=== PATIENT | female | born 1940 | race Caucasian/White ===

== ENCOUNTER 2025-02-03 18:36 | Inpatient (IN) ==
--- NOTE | 2025-02-03 18:49 | Emergency Department Note ---
Impression & Plan Hospice care ED Provider Note HISTORY OF PRESENT ILLNESS: Patient is an 84-year-old female presenting for a mental health evaluation. Patient presents with [facility] [employer]. Patient reports that she called her home health nurse to inquire about whether the nurse was going to stop by tomorrow to see her. Patient reports that she was doing this because tonight she had plan to take all of her medications to "end my life peacefully and go to sleep." She reports she is currently on hospice for stage IV uterine and breast cancers. She reports that "I did not want it to get to that bad point and wanted to go while I am still me." She reports that the home health nurse had asked a few more questions about why she was calling, and patient reports that she accidentally told them of her plan. The home health nurse called police. Patient denies any suicidal ideation. Denies any homicidal ideation. Patient denies any previous suicide attempts. She reports that "I just do not want to keep going on like this." Patient reports her son lives in [place]. She lives at home alone, but states "I have friends who check up on me." Patient reports that after she had disclosed her plan to her home health nurse, they had presented to her home and took all of her medications. ROS: as above PHYSICAL EXAM: Constitutional: Patient appears in no acute distress. HENT: Head: Normocephalic and atraumatic. Eyes: EOMI, PERRL Mouth/Throat: Mucous membranes moist. Neck: Trachea midline. Neck supple. Cardiovascular: RRR, No murmurs, rubs or gallops. Intact distal pulses. Pulmonary/Chest: No respiratory distress. Breath sounds clear and equal bilaterally. No wheezes or rales. Abdominal: Abdomen soft, no tenderness, rebound or guarding. Musculoskeletal: No edema, tenderness or deformity noted. Skin: Warm and dry. No rash, erythema, pallor or cyanosis Psychiatric: Appropriate mood and affect for situation. Neurological: Alert and keenly responsive. CN II-XII grossly intact, moving all extremities equally and fully. MDM: - Vitals signs showed tachycardia - History obtained via patient. History as above. - Chronic conditions affecting care: DM-2; hx of PE; HTN; HLD; uterine cancer - External medical records reviewed. - A 302 petition was signed by the home hospice nurse. However, I did overturn this, as I do not feel the patient requires inpatient psychiatric admission. She has an unfortunate medical diagnosis and has no previous psychiatric history. Case management did touch base with the home hospice nurse, Jaky, who stated that the medications were removed from the patient's home. In further discussions between case management and hospice, they report that they do not feel comfortable being a part of the patient's care unless she is placed in a SNF or an assisted living facility. They report that they do not feel comfortable giving the patient back any of her home meds given her expressed plans today. As such, the patient will need medical admission for her medication management and for discussions of placement. IV and lab work was obtained. - Discussion was had with watch case polisher about patient's case and need for admission - Hospitalist, Dr. Cisse, consulted for admission - Patient admitted to [facility] hospitalist service for further evaluation and management. ASSESSMENT AND PLAN: Diagnosis: hospice care Plan: Admit Past Med/Surg History Problem List (Updated 02/03/25 @ 21:54 by Sherry Mercado MD) Hospice care (Acute) Encounter for pre-operative examination Head injury without skull fracture (Acute) Alcohol intoxication (Acute) Diabetes (Chronic) Avulsion of skin of finger (Acute) Medical History (Updated 02/03/25 @ 21:54 by Sherry Mercado MD) Arthritis Diabetes mellitus, type 2 Hx pulmonary embolism WAS ON BLOOD THINNERS FOR A LITTLE BIT Hypertension Hyperlipidemia Surgical History Hx of colonoscopy Hx of foot surgery RIGHT AND LEFT BUNIONECTOMY Status post vascular surgery STENT PLACED IN RIGHT SIDE FOR BLOCK IN FEMORAL ARTERY Hx of superior vena cava filter placement DUE TO BLOOD CLOT Social History Smoking Status: Former smoker Second Hand Exposure: No; Do You Dip or Chew Tobacco: No; Hx Alcohol Use: No Hx Substance Use: No Preferred Language: Romanian Communication Ability: Effective Heel Splitter Required: No Beliefs That Will Affect Care: None Current Living Situation: Alone Feels Safe at Home: Yes Assistive Devices: Denture - Upper, Denture - Lower and Glasses Allergies Allergies Allergy/AdvReac Type Severity Reaction Status Date / Time No Known Allergies Allergy Verified 11/15/19 09:39 Home Meds Home Medications Medication Instructions Recorded Confirmed alprazolam 1 mg tablet 1 mg PO HS PRN Anxiety 02/03/25 02/03/25 fentanyl 25 mcg/hr transdermal 1 patch transdermal Q72H 02/03/25 02/03/25 patch Results & Data (ED) Vital Signs Vital Signs - 24 hr 02/03/25 18:39 02/03/25 21:30 02/03/25 21:30 Temperature 36.9 C Temperature Source Oral Pulse Rate 94 H Pulse Rate [Finger] 82 Pulse Rhythm [Finger] Regular Pulse Strength [Finger] Normal Respiratory Rate 18 20 Respiratory Effort / Characteristics Non-Labored Spontaneous Non-Labored Spontaneous Respiratory Depth Normal Normal Respiratory Pattern Regular Regular Blood Pressure 117/97 Blood Pressure [Right Arm] 110/69 Blood Pressure Mean 103 Blood Pressure Mean [Right Arm] 82 Blood Pressure Position [Right Arm] Lying Pulse Oximetry 95 98 97 Oxygen Delivery Method Room Air Room Air Room Air Sepsis Recent Fever Within 48 Hours No Sepsis New/Unexplained Change in Mental Status N/A Sepsis Action Taken by Nursing No Action Required Discharge Plan Visit Data Chief Complaint: Mental Health Evaluation ED Provider: Sherry Mercado Discharge Problem: Hospice care Forms Stand Alone Forms: [facility], Suicide Prevention Resources Prescriptions Prescriptions: No Action alprazolam 1 mg tablet 1 mg PO HS PRN (Reason: Anxiety) fentanyl 25 mcg/hr Patch 72 Hour 1 patch TRANSDERMAL Q72H Referrals Referrals: Ila Fung DO [Outside Practitioners] -
[2025-02-03 22:05] LABS: Basophils # (auto) 0.03 K/uL (0.00-0.20); Basophils % (auto) 0.4 %; Eosinophils # (auto) 0.05 K/uL (0.00-0.50); Eosinophils % (auto) 0.7 %; Hematocrit (blood only) 35.1 % (37.0-47.0); Hemoglobin 10.7 g/dl (12.0-16.0); Immature Granulocytes # (auto) 0.02 K/uL (0.01-0.20); Immature Granulocytes % (auto) 0.3 %; Lymphocytes # (auto) 2.07 K/uL (1.20-3.40); Lymphocytes % (auto) 27.3 %; Mean Corpuscular Hemoglobin 23.6 pg (25.0-34.0); Mean Corpuscular Hgb Conc 30.5 g/dL (32.0-36.0); Mean Corpuscular Volume 77.5 fL (80.0-100.0); Mean Platelet Volume 9.7 fL (9.4-12.4); Monocytes # (auto) 0.76 K/uL (0.11-0.59); Neutrophils # (auto) 4.65 K/uL (1.40-6.50); Neutrophils % (auto) 61.3 %; Platelet Count 221 K/uL (130-400); RDW Coefficient of Variation 13.9 % (11.5-14.5); RDW Standard Deviation 39.1 fL (36.4-46.3); Red Blood Count 4.53 M/uL (4.20-5.40); White Blood Count 7.58 K/ul (4.8-10.8)
[2025-02-03 22:19] LABS: Albumin Globulin Ratio 0.9 (0.9-2); Albumin Level 3.7 gm/dl (3.4-5.0); BUN Creatinine Ratio 16.8 (10-20); Bilirubin,Total 0.6 mg/dl (0.2-1.0); Calcium 9.4 mg/dl (8.6-10.3); Creatinine Clr Calc Pharmacy 33.3 ml/min; Globulin 3.9 gm/dl (2.5-4.0); Potassium 3.7 mmol/L (3.5-5.1); Total Protein 7.6 gm/dl (6.0-8.3)
[2025-02-03 22:33] LABS: Thyroid Stimulating Hormone 2.909 uIu/ml (0.300-4.500)
[2025-02-04] MEDS ORDERED: POLYETHYLENE (MIRALAX) 17 GM PACK PO PRN (00:57)
[2025-02-04] MEDS: ENOXAPARIN INJ 40 MG/0.4 ML SYR SQ SCH (01:52)
--- OUTSIDE RECORDS SUMMARY | 2025-02-04 02:41 | External Medical Summary | Summary of Care ---
Author Name Unknown Organization [facility] Address [address] [place] [address] Phone [phone] Care Team Providers Care Certified Ophthalmic Technician Name Role Phone Ila Fung DO Primary Care Provider [phone] Reason for Visit * Reason Onset Date Comments Appointment 11/01/2024 Encounter Details Date Type Department Care Team (Late st Contact Info) Description 11/01/2024 Telephone Gynecology/Oncology, [facility] [address] [place] [address] Mauricio Ramirez PA-C [address] [place] [address] Appointment Allergies No known active allergiesdocumented as of this encounter (statuses as of 11/01/2024) Medications ASPIRIN 81 MG PO TABS Take by mouth. Activ e Ondansetron HCl 4 MG Oral Tablet Take 1 Tablet by mouth every 8 hours as needed for Nausea. 20 Tablet 07/21/2024 4:05 PM EDT Active Additional Information Patient not taking.Reported on 09/08/2024 Senna 8.6 MG Oral Tablet Take 1 Tablet by mouth daily as needed for Constipation for up to 1 dose. 14 Tablet 07/21/2024 4:05 PM EDT Active Additional Information Patient not taking.Reported on 09/08/2024 Simethicone 80 MG Oral Tablet Chewable (Mylicon) Chew & swallow 1 Tablet by mouth as needed for Gas. 30 Tablet 07/21/2024 4:05 PM EDT 4 Active Additional Information Patient not taking.Reported on 09/08/2024 Ondansetron HCl 8 MG Oral Tablet (Zofran)Indicat ions:Endometria l cancer (HCC) Take 1 Tablet by mouth every 8 hours as needed for Nausea. 30 Tablet 2 4 Active Additional Information Patient not taking.Reported on 09/08/2024 Prochlorperazin e Maleate 10 MG Oral Tablet (Compazine)Irena cations:Endomet rial cancer (HCC) Take 1 Tablet by mouth every 6 hours as needed for Nausea. 30 Tablet 3 4 Active Additional Information Patient not taking.Reported on 09/08/2024 dexAMETHasone 4 MG Oral Tablet (Decadron)Indic ations:Endometr ial cancer (HCC) Take 20mg (5 tablets) the night before and morning of chemotherapy 60 Tablet 4 Active Additional Information Patient not taking.Reported on 09/08/2024 Loratadine 10 MG Oral Tablet (Claritin)Indic ations:Endometr ial cancer (HCC) Take 1 tablet by mouth daily x5 days starting the day of chemotherapy 30 Tablet 4 Active Additional Information Patient not taking.Reported on 09/08/2024 Lidocaine-Prilo todd 2.5-2.5 % External Cream (Emla)Indicatio ns:Endometrial cancer (HCC) APPLY TO SKIN OVER MEDIPORT & COVER 1HR PRIOR TO ACCESSING. 30 g 1 4 Active Additional Information Patient not taking.Reported on 09/08/2024 ALPRAZolam 0.5 MG Oral Tablet (xaNAX)Indicati ons:Insomnia TAKE 1 TABLET BY MOUTH ONCE DAILY AT BEDTIME NEEDED FOR ANXIETY 15 Tablet 4 Active oxyCODONE HCl 5 MG Oral Tablet (Oxy IR)Indications: Cancer related pain Take 1 Tablet by mouth every 4 hours as needed for Pain, Severe. 40 Tablet 4 Active Gabapentin 300 MG Oral Capsule (Neurontin)Irena cations:Neuropa thic pain Take 1 Capsule by mouth at bedtime. 60 Capsule 4 Active Polyethylene Glycol 3350 17 GM Oral Packet (Miralax)Indica tions:Constipat ion due to pain medication Take 1 Packet by mouth in the morning. 14 Each Active documented as of this encounter (statuses as of 11/01/2024) Active Problems Problem Noted Date Diagnosed Date Encounter for antineoplastic chemotherapy 2023 Prevention of chemotherapy-induced neutropenia 1 10/27/2023 Endometrial cancer 06/09/2024 Cancer Staging:Clinical stage from 07/21/2024:FIGO Stage IIIC1(cT3b, cN1, cM0) - Signed by Raymundo Ieyr MD on 08/02/2024 Type 2 diabetes mellitus wit h diabetic peripheral angiopathy without gangrene, without long-term current use of insulin 04/08/2023 PVD (peripheral vascular disease) 10/30/2022 Type 2 diabetes mellitus with diabetic cataract 04/03/2022 Anxiety, generalized 04/03/2022 Type 2 diabetes mellitus wit h stage 3a chronic kidney disease, without long-term current use of insulin 09/19/2021 Chronic kidney disease, stage 3a 03/06/2021 Overview: Per CKD protocol Hypertensive kidney disease with stage 3a chronic kidney disease 09/04/2020 Overview: Per CKD protocol 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 06/20/2017 Former smoker 06/20/2017 HTN, goal below 140/90 02/15/2015 Alcohol dependence in remission 06/15/2013 Hyperlipidemia with target LDL less than 100 Overview (02/26/2016): ICD-10 update of inactive term Type 2 diabetes, HbA1C goal < 8% documented as of this encounter (statuses as of 11/01/2024) Resolved Problems Problem Noted Date Diagnosed Date Resolved Date Hypertensive kidney disease with chronic kidney disease stage III 04/14/2019 09/07/2020 Overview: Per CKD protocol Kidney disease, chronic, sta ge III (GFR 30-59 ml/min) 12/07/2018 05/06/2019 Overview: Per CKD protocol #1 Angiopathy, diabetic 10/01/2018 019 Anxiety 11/28/2015 04/08/2023 Other screening mammogram 02/15/2015 Pulmonary embolism 06/15/2013 5 Fracture of rib of left side 06/15/2013 02/15/2015 Tick bite 03/15/2013 02/15/2015 Cellulitis of trunk 03/15/2013 02/16/20 15 Urinary incontinence 09/15/2012 015 Overview (07/28/2017): ICD-10 update of inactive term Localized, primary osteoarth ritis of ankle or foot 12/05/2011 07/31/2012 Overview (12/05/2011): S/p bilateral bunion surgeries 15 years ago Insomnia 12/05/2011 10/15/2018 Overview (07/28/2017): ICD-10 update of inactive term Localized, primary osteoarth ritis of ankle or foot 12/05/2011 07/17/2018 Dyslipidemia 07/31/2012 Overview (12/05/2011): Taking lipitor > 10 years Prediabetes 09/15/2012 Overview (12/05/2011): on metformin HTN, goal below 140/80 02/15 Type 2 diabetes mellitus wit h hemoglobin A1c goal of less than 7.0% 12/05/2011 Overview (02/20/2016): ICD-10 update of inactive term HSV (herpes simplex virus) a nogenital infection 10/15/2018 Overview (12/05/2011): 3-4 outbreaks in last 10 years, used valcyclovir documented as of this encounter (statuses as of 11/01/2024) Immunizations Name Administration Dates Next Due COVID-19 mRNA, LNP-s, No Pre serve, 2-Dose Series (Medgenics) 01/31/2022,07/26/2021,01/13/2021,12/23 Pneumococcal Polysaccharide PPV23 (Pneumovax) 10/08/2022 Season Influenza, Quad, PF, Adjuvanted, 65+ Yrs, IM (FLUAD) 07/19/2022,07/04/2021,08/04/2020 Seasonal Influenza Virus Vac cine, Unspecified Formulation 08/04/2020 TDAP, Age 7 and older, IM (Adacel) 04/26/2013 documented as of this encounter Social History Tobacco Use Types Packs/Day Years Used Date Smoking Tobacco: Former Cigarettes 1 29 0 12/05/1949 - 12/05/1978 Smokeless Tobacco: Never Alcohol Use Standard Drinks/Week Comments No 0 (1 standard drink = 0.6 oz pur e alcohol) PHQ-2 Answer Date Recorded PHQ Adult Total Score 0 10/08/2022 Hunger Vital Sign Answer Date Recorded Within the past 12 months, y ou worried that your food would run out before you got the money to buy more. Never true 04/04/20 21 Within the past 12 months, t he food you bought just didn't last and you didn't have money to get more. Never true 04/04/2021 Utilities Answer Date Recorded Do you have trouble paying y our heating, water, or electric bill? (Adult - for ages 18 years and over) Not on file 04/13/2024 Is your family able to pay t he heat, water, or electric bill? (Household - for ages 0-17 years) Not on file 04/13/2024 Does your family have access to good internet? (Household - for ages 0-17 years) Not on file 04/13/2024 Social Connections Answer Date Recorded How often do you feel lonely or isolated from those around you? 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 Not on file Not on maricruz e documented as of this encounter Miscellaneous Notes * Telephone Encounter - Jaimie Mittal OSA - 11/01/2024 10:27 AM EST Left message asking pt to contact us - need to cancel 11/24/2024 appt provider is going to OR - can offer appt on and 11/26 Canceled appt in [facility] documented in this encounter Plan of Treatment Upcoming Encounters Date Type Department Care Team (Late st Contact Info) Description 12/08/2024 9:30 AM EST Office Visit Palliative Medicine [facility] [address] [place] [phone] Marsha Lowe MD [address] [place] [phone] 12/29/2024 2:00 PM EST Office Visit Hematology/Oncology [address] [place] [phone] Nils [facility] [address] [facility] [address] Scheduled Procedures Name Priority Associated Diagnoses Date/Ti me COLONOSCOPY FLEXIBLE PROXIMA L DIAGNOSTIC Recall Special screening for malignant neoplasms, colon Health Maintenance Due Date Last Done Comments DXA Scan 1940 Zoster Vaccines (1 of 2) 1990 Adult Wellness Visit 2006 DTap/Tdap Vaccines (2 - Td or Tdap) 04/26/2023 04/26/2013 Depression Screening 10/08/2023 10/08/2022 Diabetic Foot Exam 10/08/2023 10/08/2022, 1 12/04/2020, 06/29/2019, Additional history exists Pneumococcal Vaccine: 50+ Years (2 of 2 - PCV) 10/08/2023 10/08/2022 Diabetic Eye Exam 04/07/2024 04/07/2023, , 10/08/2022 (Done elsewhere), Additional history exists COVID-19 Vaccine ( season) 2024 01/31/2022, 07/26/2021, 01/13/2021, Additional history exists Influenza Vaccine (FLU shot) (#1) 2024 07/19/2022, 07/04/2021, 08/04/2020, Additional history exists Albumin/Creatinine Ratio 08/26/2024 023, 10/08/2022, 03/11/2017, Additional history exists HbA1c 09/23/2024 03/23/2024, 03/27, 10/08/2022, Additional history exists GFR 02/28/2025 08/31/2024, 06/27, 06/14/2024, Additional history exists B-12 03/23/2025 03/23/2024, 03/27, 03/27/2022, Additional history exists CKD PHOS USE SMARTSET 05841 03/23/202502/25, 04/07/2023, 03/27/2022, Additional history exists CKD HGB USE SMARTSET 48785 08/31/202508/31, 08/31/2024, 07/15/2024, Additional history exists HPV (Gardasil) Vaccine Aged Out No lo nger eligible based on patient's age to complete this topic Hepatitis B Vaccine Aged Out No longe r eligible based on patient's age to complete this topic MENINGOCOCCAL (MENACTRA/MENVEO) Aged Out No longer eligible based on patient's age to complete this topic documented as of this encounter Medical Devices Implanted Type Area Dental Technician Instructor Device Identifier Shelf Expiration Date Model / Serial / Lot Stent [employer] [id number] - [id number] Implanted:Qty: 1 on 06/24/2017 by Oliverio Singh MD [place] [facility] [place]: Iliac [employer] : VASCULAR 11/22/2017 [id number] / / [id number] Lens Intraoc 17.0 - [id number] - [id number] Implanted:Qty: 1 on 04/13/2021 by Jaret Trotter MD at OR [facility] Left: Eye [employer] 09/25/2025 [id number] / [id number] / [id number] Lens Intraoc 17.0 - [id number] - [id number] Implanted:Qty: 1 on 05/01/2021 by Jaret Trotter MD at OR [facility] Right: Eye [employer]OM[employer] 11/26/2025 [id number] / [id number] / [id number] documented as of this encounter Advance Directives * Full Code (Latest Code Status on File) Date Activated Date Inactivated Comments 07/21/2024 3:05 PM 07/21/2024 11:02 PM This order reflects the patients wishes and were consensually agreed upon. Question Answer Comments Discussion of Advance Direct cruzito occurred with: Not Discussed due to patient's condition * Full Code Date Activated Date Inactivated Comments 06/24/2017 8:33 AM 06/25/2017 2:01 PM This order r eflects the patients wishes and were consensually agreed upon. Question Answer Comments Discussion of Advance Directives occurred with: Patient Does the patient have a Living Will? No Does the patient have Health Care Power of Attor osmani? No Care Teams Certified Ophthalmic Technician Relationship Specialty Start Date End Date Ila Fung DO [address] [facility] [place] [address] PCP - General Family Medicine 10/10/16 documented as of this encounter
--- OUTSIDE RECORDS SUMMARY | 2025-02-04 02:41 | External Medical Summary | Summary of Care ---
Author Name Unknown Organization [facility] Address [address] [place] [facility] [address] Phone [phone] Care Team Providers Care Landscape Drafter Name Role Phone Ila Fung DO Primary Care Provider [phone] Reason for Visit * Reason Comments Follow Up Follow up Encounter Details Date Type Department Care Team (Late st Contact Info) Description 10/13/2024 9:30 AM EST Office Visit Palliative Medicine [facility] [address] [place] [address] Marsha Lowe MD [address] [place] [address] Cancer related pain*; Neuropathic pain; Constipation due to pain medication Allergies No known active allergiesdocumented as of this encounter (statuses as of 10/13/2024) Medications ASPIRIN 81 MG PO TABS Take by mouth. Activ e Ondansetron HCl 4 MG Oral Tablet Take 1 Tablet by mouth every 8 hours as needed for Nausea. 20 Tablet 4 4:05 PM EDT 07/21/20 24 Active Additional Information Patient not taking.Reported on 09/08/2024 Senna 8.6 MG Oral Tablet Take 1 Tablet by mouth daily as needed for Constipation for up to 1 dose. 14 Tablet 4 4:05 PM EDT 07/21/20 24 Active Additional Information Patient not taking.Reported on 09/08/2024 Simethicone 80 MG Oral Tablet Chewable (Mylicon) Chew & swallow 1 Tablet by mouth as needed for Gas. 30 Tablet 4 4:05 PM EDT 07/21/20 Active Additional Information Patient not taking.Reported on 09/08/2024 Ondansetron HCl 8 MG Oral Tablet (Zofran)Indic ations:Endome trial cancer (HCC) Take 1 Tablet by mouth every 8 hours as needed for Nausea. 30 Tablet 2 08/31/20 24 Active Additional Information Patient not taking.Reported on 09/08/2024 Prochlorperaz ine Maleate 10 MG Oral Tablet (Compazine)In dications:End ometrial cancer (HCC) Take 1 Tablet by mouth every 6 hours as needed for Nausea. 30 Tablet 3 08/31/20 Active Additional Information Patient not taking.Reported on 09/08/2024 dexAMETHasone 4 MG Oral Tablet (Decadron)Ind ications:Endo metrial cancer (HCC) Take 20mg (5 tablets) the night before and morning of chemotherapy 60 Tablet 08/31/20 Active Additional Information Patient not taking.Reported on 09/08/2024 Loratadine 10 MG Oral Tablet (Claritin)Ind ications:Endo metrial cancer (HCC) Take 1 tablet by mouth daily x5 days starting the day of chemotherapy 30 Tablet 08/31/20 Active Additional Information Patient not taking.Reported on 09/08/2024 Lidocaine-Linda locaine 2.5-2.5 % External Cream (Emla)Indicat ions:Endometr ial cancer (HCC) APPLY TO SKIN OVER MEDIPORT & COVER 1HR PRIOR TO ACCESSING. 30 g 1 08/31/20 24 Active Additional Information Patient not taking.Reported on 09/08/2024 ALPRAZolam 0.5 MG Oral Tablet (xaNAX)Indica tions:Insomni a TAKE 1 TABLET BY MOUTH ONCE DAILY AT BEDTIME NEEDED FOR ANXIETY 15 Tablet 09/30/20 24 Active oxyCODONE HCl 5 MG Oral Tablet (Oxy IR)Indication s:Cancer related pain Take 1 Tablet by mouth every 4 hours as needed for Pain, Severe. 40 Tablet 10/13/20 24 Active Gabapentin 300 MG Oral Capsule (Neurontin)In dications:Ludy ropathic pain Take 1 Capsule by mouth at bedtime. 60 Capsule 10/13/20 24 Active Polyethylene Glycol 3350 17 GM Oral Packet (Miralax)Irena cations:Const ipation due to pain medication Take 1 Packet by mouth in the morning. 14 Each 10/13/20 24 Active traMADol HCl 50 MG Oral Tablet (Ultram) Take 1 Tablet by mouth every 4 hours as needed for moderate or severe pain 20 Tablet 4 4:05 PM EDT 07/21/20 24 024 Discontinued oxyCODONE HCl 5 MG Oral Tablet (Oxy IR)Indication s:Cancer related pain Take 1 Tablet by mouth every 4 hours as needed for Pain, Severe. 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 06/20/2017 Former smoker 06/20/2017 HTN, goal below 140/90 02/15/2015 Alcohol dependence in remission 06/15/2013 Hyperlipidemia with target LDL less than 100 Overview (02/26/2016): ICD-10 update of inactive term Type 2 diabetes, HbA1C goal < 8% documented as of this encounter (statuses as of 10/13/2024) Resolved Problems Problem Noted Date Diagnosed Date [...] as of this encounter (statuses as of 10/13/2024) Immunizations Name Administration Dates Next Due COVID-19 mRNA, LNP-s, No Pre serve, 2-Dose Series (Pfizer) 01/31/2022,07/26/2021,01/13/2021,12/23 Pneumococcal Polysaccharide PPV23 (Pneumovax) 10/08/2022 Season [...] 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 Not on file Not on maricruz e documented as of this encounter Last Filed Vital Signs Vital Sign Reading Time Taken Comments Blood Pressure 143/83 10/13/2024 9:25 AM EST Pulse 90 10/13/2024 9:25 AM EST Temperature 36.7 °C (98 °F) 10/13/2024 9:25 AM EST Respiratory Rate - - Oxygen Saturation 95% 10/13/2024 9:25 AM EST Inhaled Oxygen Concentration - - Weight 67.9 kg (149 lb 9.6 oz) 10/13/2024 9:25 A M EST Height - - Body Mass Index 24.89 09/08/2024 10:22 AM EST documented in this encounter Progress Notes * Marsha Lowe MD - 10/13/2024 9:30 AM EST Palliative Medicine Outpatient Progress Note [facility] Palliative Medicine Outreach [address] [place] [address] Name: Jyoti Izaguirre Date: 10/13/2024 HPI: Jyoti Izaguirre is a 83 year old female with uterine clear cell carcinoma, s/p surgery, who is clear she does NOT want any sort of treatment seen in follow-up for goals of care and symptom management. At last visit, we completed POLST/OOH DNR and provided a PRN dose of Oxycodone which she was not sure she would use. She has been using it a bit more. Met w/Jyoti today, overall she is doing well. Is having pain in abdomen that is "like a toothache"as well as pain in legs is becoming more severe. Has never been on anything for neuropathic pain. Had bunion surgery in past and feels pain "in her bones" Palliative symptoms: Pain: Bilateral legs and abdomen, using Oxy 5mg Nausea/Vomiting: no Appetite: good, eating what she wants Constipation: no Confusion: no Sleep issues: not sleeping due to pain Dyspnea: no Mood issues: OK Falls: no Other: Examination: BP 143/83 (BP Site: Right Arm, BP Position: Sitting, BP Cuff Size: Regular) | Pulse 90 | Temp 36.7 °C (98 °F) (Tympanic) | Wt 67.9 kg (149 lb 9.6 oz) | SpO2 95% | BMI 24.89 kg/m² | BSA 1.76 m² Constitutional: no acute distress, chronically ill HENT: normocephalic, atraumatic. Eyes: anicteric, sclera and conjunctiva normal. Neck: no stridor Chest: normal respiratory effort Abdominal: nondistended Extremities: no edema Decision-making Capacity: Does Patient have Decisional Capacity? y Does Patient have a Healthcare Agent? Y, son who lives in [place] Advanced Care Planning (see ACP Tab): AD in EMR: y POLST in EMR: y from last visit, DNR LIMITED ASSESSMENT/PLAN: Jyoti Izaguirre is a 83 year old female seen in follow-up for goals of care and pain and symptom management. 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 They are not able to do video visits. Next visit with me. I spent a total of 31 minutes on the date of service in preparation, delivery, and documentation ofthe care provided to Jyoti Izaguirre excluding any time spent in the performance of separately billed services. Marsha Lowe MD [facility] Palliative Medicine [phone] documented in this encounter Nursing Notes * Yoli Bobo, DRIVE SHAFT AND STEERING POST REPAIRER - 10/13/2024 9:26 AM EST Patient identifed by name and birthdate Do you have any concerns about pain management for today's visit? Yes. Patient instructed to discuss pain concerns with provider during the visit today Living Will or Advance Directive for Health Care as noted on the problem list. [facility] is a way you can talk to your provider on line through e-mail. Would you like to sign up? I can activate it for you? ALREADY ACTIVE Filed Vitals: 10/13/24 0925 BP: 143/83 Pulse: 90 Temp: 36.7 °C (98 °F) TempSrc: Tympanic SpO2: 95% Weight: 67.9 kg (149 lb 9.6 oz) Patient was instructed to not get up on the exam table/exam chair until directed and assisted by their provider; patient is to remain seated in the chair/ wheelchair/ exam table/ exam chair for fall prevention and safety reasons. Patient is aware to have assistance to step down off exam table/exam chair with personnel. Patient voiced full comprehension of instructions. documented in this encounter Plan of Treatment Upcoming Encounters Date Type Department Care Team (Late st Contact Info) Description 11/24/2024 1:00 PM EST Office Visit Gynecology/Oncology, [place] [address] [place] [address] Mauricio Ramirez PA-C [address] [place] [address] 12/29/2024 2:00 PM EST Office Visit Hematology/Oncology [facility] [address] [facility] [place] [phone] Nils Reid MD [address] [facility] [place] [address] Scheduled Procedures Name Priority Associated Diagnoses Date/Ti [...] 12/04/2020, 06/29/2019, Additional history exists Pneumococcal Vaccine: 65+ Years (2 of 2 - PCV) 10/08/2023 [...] Additional history exists CKD PHOS USE SMARTSET 43875 03/23/202502/25, 04/07/2023, 03/27/2022, Additional history exists CKD HGB USE SMARTSET 29148 08/31/202508/31, 08/31/2024, 07/15/2024, Additional history exists HPV [...] this encounter Medical Devices Implanted Type Area Chief Digital Media Officer Device Identifier Shelf Expiration Date Model / Serial / Lot Stent Assurant [id number] - [id number] Implanted:Qty: 1 on 06/24/2017 by Oliverio Singh MD at [facility] Right: Iliac [employer] : VASCULAR 11/22/2017 [id number] / / [id number] Lens Intraoc 17.0 - [id number] - [id number] Implanted:Qty: 1 on 04/13/2021 by Jaret Trotter MD at OR [facility] Left: Eye BAUSCH & LOMB 09/25/2025 [id number] / [id number] / [id number] Lens Intraoc 17.0 - [id number] - [id number] Implanted:Qty: 1 on 05/01/2021 by Jaret Trotter MD at OR [facility] Right: Eye BAUSCH & LOMB 11/26/2025 [id number] / [id number] / [id number] documented as of this encounter Visit Diagnoses Diagnosis Cancer related pain- Primary Neoplasm related pain (acute) (chronic) Neuropathic pain Neuralgia, neuritis, and radiculitis, unspecified Constipation due to pain medication Other constipation documented in this encounter Advance Directives Documents on File Type Date Recorded Patient Electric System Operator Expl anatpadmini POLST 09/09/2024 signed on 09/08 * Full Code (Latest Code Status on [...] patient have Health Care Power of Attor osamni? No Care Teams Landscape Drafter Relationship Specialty Start Date End Date Ila Fung DO [address] [place] [address] PCP - General Family Medicine 10/10/16 documented as of this encounter
--- OUTSIDE RECORDS SUMMARY | 2025-02-04 02:41 | External Medical Summary | Summary of Care ---
Author Name Unknown Organization [facility] Address [address] [facility] [place] [address] Phone [phone] Care Team Providers Care Ep Specialist Name Role Phone Leon Ivan DO Primary Care Provider [phone] Reason for Visit * Reason Comments eRx-Medication Refill Encounter Details Date Type Department Care Team (Late st Contact Info) Description 11/05/2024 Refill Family Practice [facility] [address] [place] [address] Leon Ivan DO [address] [place] [address] Insomnia Allergies No known active allergiesdocumented as of this encounter (statuses as of 11/08/2024) Medications ASPIRIN 81 MG PO TABS Take [...] 09/08/2024 Ondansetron HCl 8 MG Oral Tablet (Zofran)Indica tions:Endometr ial cancer (HCC) Take 1 Tablet by mouth every 8 hours as needed for Nausea. 30 Tablet 2 08/31/20 24 Active Additional Information Patient not taking.Reported on 09/08/2024 Prochlorperazi ne Maleate 10 MG Oral Tablet (Compazine)Ind ications:Endom etrial cancer (HCC) Take 1 Tablet by mouth every 6 hours as needed for Nausea. 30 Tablet 3 08/31/20 24 Active Additional Information Patient not taking.Reported on 09/08/2024 dexAMETHasone 4 MG Oral Tablet (Decadron)Irena cations:Endome trial cancer (HCC) Take 20mg (5 tablets) the night before and morning of chemotherapy 60 Tablet 08/31/20 Active Additional Information Patient not taking.Reported on 09/08/2024 Loratadine 10 MG Oral Tablet (Claritin)Irena cations:Endome trial cancer (HCC) Take 1 tablet by mouth daily x5 days starting the day of chemotherapy 30 Tablet 08/31/20 Active Additional Information Patient not taking.Reported on 09/08/2024 Lidocaine-Pril ocaine 2.5-2.5 % External Cream (Emla)Indicati ons:Endometria l cancer (HCC) APPLY TO SKIN OVER MEDIPORT & COVER 1HR PRIOR TO ACCESSING. 30 g 1 08/31/20 Active Additional Information Patient not taking.Reported on 09/08/2024 oxyCODONE HCl 5 MG Oral Tablet (Oxy IR)Indications :Cancer related pain Take 1 Tablet by mouth every 4 hours as needed for Pain, Severe. 40 Tablet 10/13/20 24 Active Gabapentin 300 MG Oral Capsule (Neurontin)Ind ications:Neuro pathic pain Take 1 Capsule by mouth at bedtime. 60 Capsule 10/13/20 24 Active Polyethylene Glycol 3350 17 GM Oral Packet (Miralax)Indic ations:Constip ation due to pain medication Take 1 Packet by mouth in the morning. 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 06/20/2017 Former smoker 06/20/2017 HTN, goal below 140/90 02/15/2015 Alcohol dependence in remission 06/15/2013 Hyperlipidemia with target LDL less than 100 Overview (02/26/2016): ICD-10 update of inactive term Type 2 diabetes, HbA1C goal < 8% documented as of this encounter (statuses as of 11/08/2024) Resolved Problems Problem Noted Date Diagnosed Date [...] as of this encounter (statuses as of 11/08/2024) Immunizations Name Administration Dates Next Due COVID-19 [...] 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 Not on file Not on maricruz e documented as of this encounter Miscellaneous Notes * Telephone Encounter - Leon Ivan DO - 11/08/2024 9:50 AM ESTSigned Prescriptions: Disp Refills ALPRAZolam 0.5 MG Oral Tablet (xaNAX) 15 Tab*0 Sig: TAKE 1 TABLET BY MOUTH ONCE DAILY AT BEDTIME NEEDED FOR ANXIETY Authorizing Provider: LEON IVAN * Telephone Encounter - Alison Braden [facility] - 11/06/2024 6:50 AM EST Pending Prescriptions: Disp Refills ALPRAZolam 0.5 MG Oral Tablet (xaNAX) 15 Tab*0 Sig: TAKE 1 TABLET BY MOUTH ONCE DAILY AT BEDTIME NEEDED FOR ANXIETY * Telephone Encounter - Alison Braden [facility] - 11/06/2024 6:49 AM EST I have reviewed the patient’s controlled substance dispensing history in the Prescription Drug Monitoring Program in compliance with the [facility] regulations before prescribing a controlled substance. PDMP checked on 11/06/2024. Pending Prescriptions: Disp Refills ALPRAZolam 0.5 MG Oral Tablet (xaNAX) [Ph*15 Tab*0 Sig: TAKE 1 TABLET BY MOUTH ONCE DAILY AT BEDTIME NEEDED FOR ANXIETY Last Visit: 05/18/2024 (in office), 09/04/2020 (telemedicine) Next Visit: Visit date not found Date medication was last filled: 09/30 Date medication is due for refill: 10/15/24 Pharmacy: [facility] [address] [place] [address] Is this request for a controlled substance? Yes and Urine Drug Screen Not completed Toxicology results: No results found for this or any previous visit. Please approve if appropriate. Thank you, Alison Braden, PharmD. Clinical Pharmacist [facility] ([facility]) 11/06/2024, 6:49 AM documented in this encounter Plan of Treatment Upcoming Encounters Date Type Department Care Team (Late st Contact Info) Description 12/08/2024 9:30 AM EST Office Visit Palliative Medicine [facility] [address] [place] [phone] Marsha Lowe MD [address] [place] [address] 12/29/2024 2:00 PM EST Office Visit Hematology/Oncology [address] [address] Nils Reid MD [address] [place] [phone] Scheduled Procedures Name Priority Associated Diagnoses Date/Ti [...] Additional history exists CKD PHOS USE SMARTSET 46547 03/23/202502/25, 04/07/2023, 03/27/2022, Additional history exists CKD HGB USE SMARTSET 07317 08/31/202508/31, 08/31/2024, 07/15/2024, Additional history exists HPV [...] this encounter Medical Devices Implanted Type Area Toy Maker Device Identifier Shelf Expiration Date Model / Serial / Lot Stent Assurant [id number] - [id number] Implanted:Qty: 1 on 06/24/2017 by Oliverio Singh MD at [facility] Right: Iliac [employer] : VASCULAR 11/22/2017 [id number] / / [id number] Lens Intraoc 17.0 - [id number] - [id number] Implanted:Qty: 1 on 04/13/2021 by Jaret Trotter MD at OR [facility] Left: Eye BAUSCH & LOMB 09/25/2025 [id number] / [id number] / [id number] Lens Intraoc 17.0 - [id number] - [id number] Implanted:Qty: 1 on 05/01/2021 by Jaret Trotter MD at OR [facility] Right: Eye BAUSCH & LOMB 11/26/2025 [id number] / [id number] / [id number] documented as of this encounter Visit Diagnoses Diagnosis Insomnia Insomnia, unspecified documented in this encounter Advance Directives * Full Code [...] Power of Attor osmani? No Care Teams Ep Specialist Relationship Specialty Start Date End Date Leon Ivan DO [address] [place] [address] PCP - General Family Medicine 10/10/16 documented as of this encounter
--- OUTSIDE RECORDS SUMMARY | 2025-02-04 02:41 | External Medical Summary | Summary of Care ---
Author Name Unknown Organization [facility] Address [address] [place] [place] [facility] [place] [address] Phone [phone] Care Team Providers Care Stringing Machine Tender Name Role Phone Ila Fung DO Primary Care Provider [phone] Reason for Visit * Reason Onset Date Comments Palliative Care Follow-up 12/15/2024 Encounter Details Date Type Department Care Team (Late st Contact Info) Description 12/15/2024 Telephone Palliative Medicine, [address] 5[address] [place] [address] Marsha Lowe MD [address] [place] [address] Palliative Care Follow-up Allergies No known active allergiesdocumented as of this encounter (statuses as of 12/15/2024) Medications Prochlorperazin e Maleate 10 MG Oral Tablet (Compazine)Irena cations:Endomet rial cancer (HCC) Take 1 Tablet by mouth every 6 hours as needed for Nausea. 30 Tablet 3 4 Active Additional Information Patient not taking.Reported on 09/08/2024 Polyethylene Glycol 3350 17 GM Oral Packet (Miralax)Indica tions:Constipat ion due to pain medication Take 1 Packet by mouth in the morning. 14 Each 4 Active Additional Information Patient not taking.Reported on 12/15/2024 oxyCODONE HCl 10 MG Oral Tablet (Roxicodone)Ind ications:Cancer related pain Take 1 Tablet by mouth every 4 hours as needed for Pain, Severe. 30 Tablet 5 Active ALPRAZolam 1 MG Oral Tablet (xaNAX) TAKE 1 TABLET BY MOUTH ONCE DAILY AT BEDTIME NEEDED FOR ANXIETY 30 Tablet 5 Active Gabapentin 300 MG Oral Capsule (Neurontin)Irena cations:Neuropa thic pain Take 2 Capsules by mouth at bedtime. 60 Capsule 5 Active Senna 8.6 MG Oral Tablet Take 2 Tablets by mouth at bedtime. 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 06/20/2017 Former smoker 06/20/2017 HTN, goal below 140/90 02/15/2015 Alcohol dependence in remission 06/15/2013 Hyperlipidemia with target LDL less than 100 Overview (02/26/2016): ICD-10 update of inactive term Type 2 diabetes, HbA1C goal < 8% documented as of this encounter (statuses as of 12/15/2024) Resolved Problems Problem Noted Date Diagnosed Date [...] as of this encounter (statuses as of 12/15/2024) Immunizations Name Administration Dates Next Due COVID-19 mRNA, LNP-s, No Pre serve, 2-Dose Series (Viralheat) 01/31/2022,07/26/2021,01/13/2021,12/23 Pneumococcal Polysaccharide PPV23 (Pneumovax) 10/08/2022 Season [...] 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 Not on file Not on maricruz e documented as of this encounter Miscellaneous Notes * Telephone Encounter - Alison Guidry LPN - 12/15/2024 10:45 AM EST Spoke with Edwige at [address] [place] [address] Aware of referral All info faxed to them Hem/onc appt cancelled Phone call scheduled for 2 months documented in this encounter Plan of Treatment Upcoming Encounters Date Type Department Care Team (Late st Contact Info) Description 02/16/2025 3:00 PM EDT Telemedicine Palliative Medicine [facility] [address] [place] [address] Marsha Lowe MD [address] [place] [address] Scheduled Procedures Name Priority Associated Diagnoses Date/Ti [...] (Done elsewhere), Additional history exists COVID-19 Vaccine (5 - 2024-25 season) 2024 01/31/2022, 07/26/2021, 01/13/2021, Additional history exists Influenza Vaccine (FLU shot) (#1) 2024 07/19/2022, 07/04/2021, 08/04/2020, Additional history exists Albumin/Creatinine Ratio 08/26/2024 023, 10/08/2022, 03/11/2017, Additional history exists HbA1c 09/23/2024 03/23/2024, 03/27, 10/08/2022, Additional history exists GFR 02/28/2025 08/31/2024, 06/27, 06/14/2024, Additional history exists B-12 03/23/2025 03/23/2024, 03/27, 03/27/2022, Additional history exists CKD PHOS USE SMARTSET 96957 03/23/202502/25, 04/07/2023, 03/27/2022, Additional history exists CKD HGB USE SMARTSET 53482 08/31/202508/31, 08/31/2024, 07/15/2024, Additional history exists HPV (Gardasil) Vaccine Aged Out No lo nger eligible based on patient's age to complete this topic Hepatitis B Vaccine Aged Out No longe r eligible based on patient's age to complete this topic MENINGOCOCCAL (MENACTRA/MENVEO) Aged Out No longer eligible based on patient's age to complete this topic Meningitis B Vaccine (Bexsero/Trumemba) Aged Out No longer eligible based on patient's age to complete this topic documented as of this encounter Medical Devices Implanted Type Area Welder Tool And Die Device Identifier Shelf Expiration Date Model / Serial / Lot Stent Assurant [id number] - [id number] Implanted:Qty: 1 on 06/24/2017 by Oliverio Singh MD [place] [facility] [place]liac MEDTRON[employer] : VASCULAR 11/22/2017 [id number] / / [id number] Lens Intraoc 17.0 - [id number] - [id number] Implanted:Qty: 1 on 04/13/2021 by Jaret Trotter MD at OR [facility] Left: Eye BAUSCH [employer] LOMB 09/25/2025 [id number] / [id number] / [id number] Lens Intraoc 17.0 - [id number] - [id number] Implanted:Qty: 1 on 05/01/2021 by Jaret Trotter MD at OR [facility] Right: Eye BAUSCH & LOMB 11/26/2025 [id number] / [id number] / [id number] documented as of this encounter Advance Directives [...] Power of Attor osmani? No Care Teams Stringing Machine Tender Relationship Specialty Start Date End Date Ila Fung DO [address] [place] [address] PCP - General Family Medicine 10/10/16 documented as of this encounter
--- OUTSIDE RECORDS SUMMARY | 2025-02-04 02:41 | External Medical Summary | Summary of Care ---
Author Name Unknown Organization [facility] Address [address] [facility] [place] [address] Phone [phone] Care Team Providers Care Weather Anchor Name Role Phone Ila Fung DO Primary Care Provider [phone] Reason for Visit * Reason Onset Date Comments Health Maintenance 01/12/2025 Encounter Details Date Type Department Care Team (Late st Contact Info) Description 01/12/2025 Telephone Family Practice [facility] [address] [place] [address] Ila Fung DO [address] [place] [address] Health Maintenance Allergies No known active allergiesdocumented as of this encounter (statuses as of 01/12/2025) Medications Prochlorperazin e Maleate 10 MG Oral [...] as of this encounter (statuses as of 01/12/2025) Active Problems Problem Noted Date Diagnosed Date [...] 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 06/20/2017 Former smoker 06/20/2017 HTN, goal below 140/90 02/15/2015 Alcohol dependence in remission 06/15/2013 Hyperlipidemia with target LDL less than 100 Overview (02/26/2016): ICD-10 update of inactive term Type 2 diabetes, HbA1C goal < 8% documented as of this encounter (statuses as of 01/12/2025) Resolved Problems Problem Noted Date Diagnosed Date [...] as of this encounter (statuses as of 01/12/2025) Immunizations Name Administration Dates Next Due COVID-19 [...] 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 Not on file Not on maricruz e documented as of this encounter Miscellaneous Notes * Telephone Encounter - Sully Foote LPN - 01/12/2025 1:24 PM EDT Care Gaps Comprehensive Care Outreach Last Office/Telemedicine Visit: 05/18/2024 (in office), 09/04/2020 (telemedicine) Next Office Visit: Visit date not found Hemoglobin AIC Results: Lab Results Component Value Date/Time HEMOGLOBIN A1C - [facility] 6.8 (H) 03/23/2024 01:03 PM HEMOGLOBIN A1C - [facility] 6.6 (H) 04/07/2023 03:08 PM HEMOGLOBIN A1C - [facility] 6.5 (H) 10/08/2022 01:16 PM HEMOGLOBIN A1C - [facility] 7.5 (H) 08/04/2020 09:01 AM HEMOGLOBIN A1C - [facility] 6.6 (H) 04/20/2019 08:47 AM HEMOGLOBIN A1C - [facility] 6.4 (H) 10/01/2018 09:23 AM BP Readings from Last 1 Encounters: 12/15/24 114/77 Reviewed Health Maintenance below: Health Maintenance Topic Date Due DXA Scan Never done Zoster Vaccines (1 of 2) Never done Adult Wellness Visit Never done DTap/Tdap Vaccines (2 - Td or Tdap) 04/26/2023 Diabetic Foot Exam 10/08/2023 Depression Screening 10/08/2023 Pneumococcal Vaccine: 50+ Years (2 of 2 - PCV) 10/08/2023 Diabetic Eye Exam 04/07/2024 Influenza Vaccine (FLU shot) (1) 06/27/2024 COVID-19 Vaccine (5 - season) 2024 Albumin/Creatinine Ratio 08/26/2024 HbA1c 09/23/2024 GFR 02/28/2025 CKD PHOS USE SMARTSET 18132 03/23/2025 B-12 03/23/2025 hospice Care Gap Outreach Action Taken: Outreach not indicated documented in this encounter Plan of Treatment Upcoming Encounters Date Type Department Care Team (Late st Contact Info) Description 02/16/2025 3:00 PM EDT Telemedicine Palliative Medicine [facility] [address] [place] [address] Marsha Lowe MD [address] [place] [address] Scheduled Procedures Name Priority Associated Diagnoses Date/Ti [...] Additional history exists CKD PHOS USE SMARTSET 68432 03/23/202502/25, 04/07/2023, 03/27/2022, Additional history exists CKD HGB USE SMARTSET 73958 08/31/202508/31, 08/31/2024, 07/15/2024, Additional history exists HPV [...] this encounter Medical Devices Implanted Type Area Receptionist Telephone Operator Device Identifier Shelf Expiration Date Model / Serial / Lot Stent Assurant [id number] - [id number] Implanted:Qty: 1 on 06/24/2017 [place]io Singh [place] [facility] [place]ac [employer] : VASCULAR 11/22/2017 [id number] / / [id number] Lens Intraoc 17.0 - [id number] - [id number] Implanted:Qty: 1 on 04/13/2021 by Jaret Trotter MD at OR [facility] Left: Eye BAUSCH & LOMB 09/25/2025 [id number] / [id number] / [id number] Lens Intraoc 17.0 - [id number] - [id number] Implanted:Qty: 1 on 05/01/2021 by Jaret Trotter MD at OR [facility] Right: Eye BAUSCH & LOMB 11/26/2025 [id number] / [id number] / [id number] documented as of this encounter Advance Directives [...] Power of Attor osmani? No Care Teams Weather Anchor Relationship Specialty Start Date End Date Ila Fung DO [address] [place] [address] PCP - General Family Medicine 10/10/16 documented as of this encounter
--- OUTSIDE RECORDS SUMMARY | 2025-02-04 02:41 | External Medical Summary | Summary of Care ---
Author Name Unknown Organization [facility] Address [address] [place] [address] Phone [phone] Care Team Providers Care Racking Machine Operator Name Role Phone Ila Fung DO Primary Care Provider [phone] Reason for Visit * Reason Comments Follow Up Encounter Details Date Type Department Care Team (Late st Contact Info) Description 12/15/2024 9:00 AM EST Office Visit Palliative Medicine [facility] [address] [place] [address] Marsha Lowe MD [address] [place] [address] Cancer related pain*; Neuropathic pain; Palliative care encounter; Endometrial cancer (HCC); Malignant neoplasm of left female breast, unspecified estrogen receptor status, unspecified site of breast (HCC) Allergies No known active allergiesdocumented as of this encounter (statuses as of 12/15/2024) Medications Prochlorperaz ine Maleate 10 MG Oral Tablet [...] the morning. 14 Each 10/13/20 24 Active Additional Information Patient not taking.Reported on 12/15/2024 oxyCODONE HCl 10 MG Oral Tablet (Roxicodone)I ndications:Ca ncer related pain Take 1 Tablet by mouth every 4 hours as needed for Pain, Severe. 30 Tablet 12/15/19 25 Active ALPRAZolam 1 MG Oral Tablet (xaNAX) TAKE 1 TABLET BY MOUTH ONCE DAILY AT BEDTIME NEEDED FOR ANXIETY 30 Tablet 12/15/19 25 Active Gabapentin 300 MG Oral Capsule (Neurontin)In dications:Ludy ropathic pain Take 2 Capsules by mouth at bedtime. 60 Capsule 12/15/19 25 Active Senna 8.6 MG Oral Tablet Take 2 Tablets by mouth at bedtime. 12/15/19 25 Active ASPIRIN 81 MG PO TABS Take by mouth. 025 Discontinued Ondansetron HCl 4 MG Oral Tablet Take 1 Tablet by mouth every 8 hours as needed for Nausea. 20 Tablet 4 4:05 PM EDT 07/21/20 24 025 Discontinued Senna 8.6 MG Oral Tablet Take 1 Tablet by mouth daily as needed for Constipation for up to 1 dose. 14 Tablet 4 4:05 PM EDT 07/21/20 24 025 Discontinued(R efill) Simethicone 80 MG Oral Tablet Chewable (Mylicon) Chew & swallow 1 Tablet by mouth as needed for Gas. 30 Tablet 4 4:05 PM EDT 07/21/20 24 025 Discontinued Ondansetron HCl 8 MG Oral Tablet (Zofran)Indic ations:Endome trial cancer (HCC) Take 1 Tablet by mouth every 8 hours as needed for Nausea. 30 Tablet 2 08/31/20 24 025 Discontinued dexAMETHasone 4 MG Oral Tablet (Decadron)Ind ications:Endo metrial cancer (HCC) Take 20mg (5 tablets) the night before and morning of chemotherapy 60 Tablet 08/31/20 24 025 Discontinued Loratadine 10 MG Oral Tablet (Claritin)Ind ications:Endo metrial cancer (HCC) Take 1 tablet by mouth daily x5 days starting the day of chemotherapy 30 Tablet 08/31/20 24 025 Discontinued Lidocaine-Linda locaine 2.5-2.5 % External Cream (Emla)Indicat ions:Endometr ial cancer (HCC) APPLY TO SKIN OVER MEDIPORT & COVER 1HR PRIOR TO ACCESSING. 30 g 1 08/31/20 24 025 Discontinued oxyCODONE HCl 5 MG Oral Tablet (Oxy IR)Indication s:Cancer related pain Take 1 Tablet by mouth every 4 hours as needed for Pain, Severe. 40 Tablet 10/13/20 24 025 Discontinued Gabapentin 300 MG Oral Capsule (Neurontin)In dications:Ludy ropathic pain Take 1 Capsule by mouth at bedtime. 60 Capsule 10/13/20 24 025 Discontinued(R efill) ALPRAZolam 0.5 MG Oral Tablet (xaNAX)Indica tions:Insomni a TAKE 1 TABLET BY MOUTH ONCE DAILY AT BEDTIME NEEDED FOR ANXIETY 15 Tablet 12/10/19 025 Discontinued(R efill) documented as of this encounter (statuses as of 12/15/2024) Active Problems Problem Noted Date Diagnosed Date Encounter for antineoplastic chemotherapy 2023 Prevention of chemotherapy-induced neutropenia 1 10/27/2023 Endometrial cancer 06/09/2024 Cancer Staging:Clinical stage from 07/21/2024:FIGO Stage IIIC1(cT3b, cN1, cM0) - Signed by Raymundo yIer MD on 08/02/2024 Type 2 diabetes mellitus [...] 2 with diabetic peripheral neuropathy Atherosclerosis of [place] ar brandon of right lower extremity with [...] Not on file 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 Not on file Not on maricruz e documented as of this encounter Last Filed Vital Signs Vital Sign Reading Time Taken Comments Blood Pressure 114/77 12/15/2024 9:10 AM EST Pulse 82 12/15/2024 9:10 AM EST Temperature 37.1 °C (98.8 °F) 12/15/2024 9:10 AM ES T Respiratory Rate 18 12/15/2024 9:10 AM EST Oxygen Saturation 93% 12/15/2024 9:10 AM EST Inhaled Oxygen Concentration - - Weight 69.8 kg (153 lb 14.4 oz) 12/15/2024 9:10 AM EST Height - - Body Mass Index 25.61 09/08/2024 10:22 AM EST documented in this encounter Patient Instructions * Patient Instructions* Alison Guidry LPN - 12/15/2024 9:13 AM EST Our Palliative Medicine Clinic is available Friday through Friday during business hours, so we are unavailable on weekends and holidays. Please ensure that you request refills early in the week as itmay take 1-2 days for them to be addressed and filled, for authorizations to be approved, or for the pharmacy to order them if needed. You can contact our office at [phone], which is our clinic in [place], or you can message us on [employer] If you have an emergency outside of these hours, we recommend calling your primary care clinic, Oncology office, or going to the ER if you have a medical emergency. documented in this encounter Progress Notes * Marsha Lowe MD - 12/15/2024 9:16 AM EST Palliative Medicine Outpatient Progress Note [facility] Palliative Medicine Outreach [address] [place] [address] Name: Jyoti Izaguirre Date: 12/15/2024 HPI: Jyoti Izaguirre is a 84 year old female with terine clear cell carcinoma, s/p surgery, who is clear she does NOT want any sort of treatment seen in follow-up for goals of care and symptom management. Now having more pain, mostly behing left breast to shoulder blade. The shoulder blade feels like a dull knife is back there. Hurts all the time. Rates it 3/10, its a nagging pain. Other pain is in pelvic region, sometimes gets to be very bad, usually couple times per week. No bleeding. Taking oxycodone 5mg. When got back pain, she was taking it 2 at time it would help bring the pain down, kind of numbs it. Feels OK with it. At nighttime when goes to bathroom to pee cannot go back to sleep. Asking for sleeping pills. Goes to bed around 9/10pm then wakes up at 2am and is awake and worrying as she has a lot to do before she passes. 'Look Good Feel better' was a yahir she was wondering if she could donate an old wig to. Palliative symptoms: Pain: worsening Nausea/Vomiting: no Appetite: no Constipation: not good - taking Senna 2 qHS, then has Bms, then a few days goes by Confusion: no Sleep issues: waking up at 2am then finds it hard to go back to sleep Dyspnea: no Mood issues: no Falls: no Other: no Examination: BP 114/77 (BP Site: Left Arm, BP Position: Sitting, BP Cuff Size: Regular) | Pulse 82 | Temp 37.1 °C (98.8 °F) (Tympanic) | Resp 18 | Wt 69.8 kg (153 lb 14.4 oz) | SpO2 93% | BMI 25.61 kg/m² | BSA1.79 m² Constitutional: no acute distress, chronically ill HENT: normocephalic, atraumatic. Eyes: anicteric, sclera and conjunctiva normal. Neck: no stridor Chest: normal respiratory effort Abdominal: nondistended Extremities: no edema LAST CT in May 2024 IMPRESSION 1. Focal endometrial thickening with myometrial thinning greater than 50%, consistent with known endometrial cancer. 2. Scattered 3-5 mm pulmonary nodules, indeterminate. 3. No evidence of metastatic disease in the abdomen or pelvis. 4. A 2.8 cm medial left upper breast mass, concerning for primary breast malignancy. Diagnostic mammogram is recommended for further evaluation. Decision-making Capacity: Does Patient have Decisional Capacity? y Does Patient have a Healthcare Agent? Y, son Advanced Care Planning (see ACP Tab): AD in EMR: no POLST in EMR: yes, DNR LIMITED from 09/08/24, and OOH DNR completed ASSESSMENT/PLAN: Jyoti Izaguirre is a 84 year old female seen in follow-up for goals of care and pain and symptom management. Endometrial cancer, stage 3, declines chemo / radiation / further follow up - Confirms she does not want to attend any more appts, requests I cancel it - Has worsening pain, likely worse disease L breast CA, declines workup - Confirms does not want to do workup for worsening pain - Does NOT want any more oncology appts Bilateral leg neuropathy with mild cancer related pain in abdomen - Doing well with gabapentin, will increase to 600mg qHS - Increased oxycodone to 10mg q4h PRN pain - Requests another Xanax refill and increase to 1mg to help w/her sleep, though I told her to use this sparingly and try the higher dose gabapentin first - I have reviewed the patient’s controlled substance dispensing history in the Prescription Drug Monitoring Program in compliance with the [facility] regulations before prescribing a controlled substance. Goals of care - DNR if admitted but ok with LIMITED tx - is clear she wants to be home and pass at home. I am concerned now she is alone (the girl who used to live there moved out) and her son is far. Reviewed hospice and what they can provide, she is OK with nursing coming by but does not want housekeeping director or otherissues - Code status if admitted: DNR Follow up PRN They are not able to do video visits. I spent a total of 32 minutes on the date of service in preparation, delivery, and documentation ofthe care provided to Jyoti Izaguirre excluding any time spent in the performance of separately billed services. Marsha Lowe MD [facility] Palliative Medicine [phone] documented in this encounter Nursing Notes * Joan Baron LPN - 12/15/2024 9:13 AM EST Patient identifed by name and [...] up? I can activate it for you? NO Filed Vitals: 12/15/24 0910 BP: 114/77 Pulse: 82 Resp: 18 Temp: 37.1 °C (98.8 °F) TempSrc: Tympanic SpO2: 93% Weight: 69.8 kg (153 lb 14.4 oz) Patient was instructed to not get [...] 02/16/2025 3:00 PM EDT Telemedicine Palliative Medicine [facility] [address] [place] [address] Marsha Lowe MD [address] [place] [address] [place] [address] Scheduled Procedures Name Priority Associated Diagnoses [...] Additional history exists CKD PHOS USE SMARTSET 10992 03/23/202502/25, 04/07/2023, 03/27/2022, Additional history exists CKD HGB USE SMARTSET 83222 08/31/202508/31, 08/31/2024, 07/15/2024, Additional history exists HPV [...] this encounter Medical Devices Implanted Type Area Lube Worker Device Identifier Shelf Expiration Date Model / Serial / Lot Stent Jossyurant [id number] - [id number] Implanted:Qty: 1 on 06/24/2017 [place] [facility] [place]liac [employer] : VASCULAR 11/22/2017 [id number] / / [id number] Lens Intraoc 17.0 - [id number] - [id number] Implanted:Qty: 1 on 04/13/2021 by Jaret Trotter MD at OR [facility] Left: Eye [employer]OMB 09/25/2025 [id number] / [id number] / [id number] Lens Intraoc 17.0 - [id number] - [id number] Implanted:Qty: 1 on 05/01/2021 by Jaret Trotter MD at OR [facility] Right: Eye BAUSCH & LOMB 11/26/2025 [id number] / [id number] / [id number] documented as of this encounter Visit Diagnoses Diagnosis Cancer related pain- Primary Neoplasm related pain (acute) (chronic) Neuropathic pain Neuralgia, neuritis, and radiculitis, unspecified Palliative care encounter Encounter for palliative care Endometrial cancer (HCC) Malignant neoplasm of corpus uteri, except isthmus Malignant neoplasm of left female breast, unspecified estrogen receptor status, unspecified site of breast (HCC) documented in this encounter Advance Directives * [...] Power of Attor osmani? No Care Teams Racking Machine Operator Relationship Specialty Start Date End Date Ila Fung DO [address] [place] [address] PCP - General Family Medicine 10/10/16 documented as of this encounter"
--- OUTSIDE RECORDS SUMMARY | 2025-02-04 02:41 | External Medical Summary | Summary of Care ---
Author Name Unknown Organization [facility] Address [address] [place] [address] Phone [phone] Care Team Providers Care Rn Documentation Specialist Name Role Phone Ila Fung DO Primary Care Provider [phone] Reason for Visit * Reason Onset Date Comments Nurse Documentation 01/12/2025 [facility]/Advance Care Planning Encounter Details Date Type Department Care Team (Late st Contact Info) Description 01/12/2025 Telephone [facility] [address] [place] [address] Ada Pelayo, LEAD SHAREPOINT DEVELOPER Nurse Documentation ([facility]/Advance.. . 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 Not on file Not on maricruz e documented as of this encounter Miscellaneous Notes * ACP (Advance Care Planning) - Ada Pelayo LPN - 01/12/2025 3:53 PM EDT [facility]/ Advance Care Planning Patient signed notice of hospice election date: 12/21/2024 Patient referred Hospice Agency:Name, address, and phone [facility] [address] [place] [address] Location of care:home Advance Directives/Orders requested:Other N/A Information received via Phone call Edwige Pelayo LPN [facility] [phone] documented in this encounter Plan of Treatment Upcoming Encounters Date Type Department Care Team (Late st Contact Info) Description 02/16/2025 3:00 PM EDT Telemedicine Palliative Medicine [facility] [address] [place] [address] Marsha Lowe MD [address] [place] [address] Scheduled Procedures Name Priority Associated Diagnoses [...] Additional history exists CKD PHOS USE SMARTSET 64585 03/23/202502/25, 04/07/2023, 03/27/2022, Additional history exists CKD HGB USE SMARTSET 11629 08/31/202508/31, 08/31/2024, 07/15/2024, Additional history exists HPV [...] this encounter Medical Devices Implanted Type Area Customer Solutions Representative Device Identifier Shelf Expiration Date Model / Serial / Lot Stent Assurant [id number] - [id number] Implanted:Qty: 1 on 06/24/2017 by Oliverio Singh MD [place] [facility] [place]: Iliac MEDTRONIC : VASCULAR 11/22/2017 [id number] / / [id number] Lens Intraoc 17.0 - [id number] - [id number] Implanted:Qty: 1 on 04/13/2021 by Jaret Trotter MD at OR [facility] Left: Eye BAUSCH & LOMB 09/25/2025 [id number] / [id number] / [id number] Lens Intraoc 17.0 - [id number] - [id number] Implanted:Qty: 1 on 05/01/2021 by Jaret Trotter MD at OR [facility] Right: Eye BAUSCH & LOMB 11/26/2025 [id number] / [id number] / [id number] documented as of this encounter Advance Directives [...] Power of Attor osmani? No Care Teams Rn Documentation Specialist Relationship Specialty Start Date End Date Ila Fung DO [address] [place] [address] PCP - General Family Medicine 10/10/16 documented as of this encounter
--- OUTSIDE RECORDS SUMMARY | 2025-02-04 02:41 | External Medical Summary | Summary of Care ---
Author Name Unknown Organization [facility] Address [address] [facility] [place] [address] Phone [phone] Care Team Providers Care Infrastructure Director Name Role Phone Leon Ivan DO Primary Care Provider [phone] Reason for Visit * Reason Comments eRx-Medication Refill Encounter Details Date Type Department Care Team (Late st Contact Info) Description 12/09/2024 Refill Family Practice [facility] [address] [place] [address] Leon Ivan DO [address] [place] [address] Insomnia Allergies No known active allergiesdocumented as of this encounter (statuses as of 12/10/2024) Medications ASPIRIN 81 MG PO TABS Take [...] BEDTIME NEEDED FOR ANXIETY 15 Tablet 12/10/19 Active ALPRAZolam 0.5 MG Oral Tablet (xaNAX)Indicat ions:Insomnia TAKE 1 TABLET BY MOUTH ONCE DAILY AT BEDTIME NEEDED FOR ANXIETY 15 Tablet 11/08/19 025 Discontinued documented as of this encounter (statuses as of 12/10/2024) Active Problems Problem Noted Date Diagnosed Date [...] 2 with diabetic peripheral neuropathy Atherosclerosis of [place] ar [place] of right lower extremity with intermittent claudication 06/20/2017 Former smoker 06/20/2017 HTN, goal below 140/90 02/15/2015 Alcohol dependence in remission 06/15/2013 Hyperlipidemia with target LDL less than 100 Overview (02/26/2016): ICD-10 update of inactive term Type 2 diabetes, HbA1C goal < 8% documented as of this encounter (statuses as of 12/10/2024) Resolved Problems Problem Noted Date Diagnosed Date [...] as of this encounter (statuses as of 12/10/2024) Immunizations Name Administration Dates Next Due COVID-19 [...] 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 Not on file Not on maricruz e documented as of this encounter Miscellaneous Notes * Telephone Encounter - Leon Ivan DO - 12/10/2024 10:22 AM ESTSigned Prescriptions: Disp Refills ALPRAZolam 0.5 MG Oral Tablet (xaNAX) 15 Tab*0 Sig: TAKE 1 TABLET BY MOUTH ONCE DAILY AT BEDTIME NEEDED FOR ANXIETY Authorizing Provider: LEON IVAN * Telephone Encounter - Argenis Allan [facility] - 12/09/2024 4:09 PM EST Pending Prescriptions: Disp Refills ALPRAZolam 0.5 MG Oral Tablet 15 Tab*0 Sig: TAKE 1 TABLET BY MOUTH ONCE DAILY AT BEDTIME NEEDED FOR ANXIETY * Telephone Encounter - Argenis Allan [facility] - 12/09/2024 4:09 PM EST I have reviewed the patient’s controlled substance dispensing history in the Prescription Drug Monitoring Program in compliance with the [facility] regulations before prescribing a controlled substance. PDMP checked on 12/09/2024. Pending Prescriptions: Disp Refills ALPRAZolam 0.5 MG Oral Tablet (xaNAX) [Ph*15 Tab*0 Sig: TAKE 1 TABLET BY MOUTH ONCE DAILY AT BEDTIME NEEDED FOR ANXIETY Last Visit: 05/18/2024 (in office), 09/04/2020 (telemedicine) Next Visit: Visit date not found Date medication was last filled: 11/08/24 Date medication is due for refill: 11/21/24 Pharmacy: [facility] Is this request for a controlled substance? Yes and Urine Drug Screen Not completed Toxicology results: No results found for this or any previous visit. Please approve if appropriate. Thanks, Argenis Allan [facility] Clinical Pharmacist [facility] ([facility] [phone] documented in this encounter Plan of Treatment Upcoming Encounters Date Type Department Care Team (Late st Contact Info) Description 12/15/2024 9:00 AM EST Office Visit Palliative Medicine [facility] [address] [place] [phone] Marsha Lowe MD [address] [place], [place] [id number] 12/29/2024 2:00 PM EST Office Visit Hematology/Oncology [facility] [address] [place] [address] Alexa Garay CRNP [address] [place] [address] Scheduled Procedures Name Priority Associated Diagnoses [...] Additional history exists CKD PHOS USE SMARTSET 33843 03/23/202502/25, 04/07/2023, 03/27/2022, Additional history exists CKD HGB USE SMARTSET 28560 08/31/202508/31, 08/31/2024, 07/15/2024, Additional history exists HPV [...] this encounter Medical Devices Implanted Type Area Ncr Operator Device Identifier Shelf Expiration Date Model / Serial / Lot Stent Assurant [id number] - [id number] Implanted:Qty: 1 on 06/24/2017 by Oliverio Singh MD at [facility] Right: Iliac MEDTRONIC : VASCULAR 11/22/2017 [id number] / / [id number] Lens Intraoc 17.0 - [id number] - [id number] Implanted:Qty: 1 on 04/13/2021 by Jaret Trotter MD at OR [facility] Left: Eye BAUSCH & LOMB 09/25/2025 [id number] / [id number] / [id number] Lens Intraoc 17.0 - [id number] - [id number] Implanted:Qty: 1 on 05/01/2021 by Jaret Trotter MD at OR [facility] Right: Eye BAUSCH & LOMB 11/26/2025 [id number] / [id number] / [id number] documented as of this encounter Visit Diagnoses [...] Power of Attor osmani? No Care Teams Infrastructure Director Relationship Specialty Start Date End Date Leon Ivan DO [address] [place] [address] PCP - General Family Medicine 10/10/16 documented as of this encounter
--- OUTSIDE RECORDS SUMMARY | 2025-02-04 02:41 | External Medical Summary | Summary of Care ---
Author Name Unknown Organization [facility] Address [address] [place] [place] [place] [address] Phone [phone] Care Team Providers Care Academic Director Name Role Phone Ila Fung DO Primary Care Provider [phone] Reason for Visit * Reason Onset Date Comments Medication Refill 10/02/2024 Encounter Details Date Type Department Care Team (Late st Contact Info) Description 10/02/2024 Refill Palliative Medicine [facility] [address] [place] [address] Marsha Lowe MD [address] [place] [address] Cancer related pain Allergies No known active allergiesdocumented as of this encounter (statuses as of 10/08/2024) Medications ASPIRIN 81 MG PO TABS Take by mouth. Activ e traMADol HCl 50 MG Oral Tablet (Ultram) Take 1 Tablet by mouth every 4 hours as needed for moderate or severe pain 20 Tablet 07/21/2024 4:05 PM EDT 4 Active Ondansetron HCl 4 MG Oral Tablet Take 1 Tablet by mouth every 8 hours as needed for Nausea. 20 Tablet 07/21/2024 4:05 PM EDT 4 Active Additional Information Patient not taking.Reported on 09/08/2024 Senna 8.6 MG Oral Tablet Take 1 Tablet by mouth daily as needed for Constipation for up to 1 dose. 14 Tablet 07/21/2024 4:05 PM EDT 4 Active [...] as needed for Pain, Severe. 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 06/20/2017 Former smoker 06/20/2017 HTN, goal below 140/90 02/15/2015 Alcohol dependence in remission 06/15/2013 Hyperlipidemia with target LDL less than 100 Overview (02/26/2016): ICD-10 update of inactive term Type 2 diabetes, HbA1C goal < 8% documented as of this encounter (statuses as of 10/08/2024) Resolved Problems Problem Noted Date Diagnosed Date [...] as of this encounter (statuses as of 10/08/2024) Immunizations Name Administration Dates Next Due COVID-19 mRNA, LNP-s, No Pre serve, 2-Dose Series ([employer]) 01/31/2022,07/26/2021,01/13/2021,12/23 Pneumococcal Polysaccharide PPV23 (Pneumovax) 10/08/2022 Season [...] 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 Not on file Not on maricruz e documented as of this encounter Miscellaneous Notes * Telephone Encounter - Alison Guidry LPN - 10/08/2024 10:44 AM EST Spoke with pharmacist at [facility] pharmacy Script was last filled on 09/08 for #15 tabs * Addendum Note - Alison Guidry LPN - 10/08/2024 7:41 AM ESTAddended by: ALISON GUIDRY on: 10/08/2024 07:41 AM Modules accepted: Orders * Telephone Encounter - Alison Guidry LPN - 10/08/2024 7:41 AM EST Pt scheduled for 11/03 at Oxycodone not in PDMP Will have to call pharmacy when they open to verify it was filled and when * Telephone Encounter - Rosalba Cooper OSA - 10/07/2024 3:08 PM EST Patient has been notified of the message. Patient has been scheduled. documented in this encounter Plan of Treatment Upcoming Encounters Date Type Department Care Team (Late st Contact Info) Description 11/03/2024 9:30 AM EST Office Visit Palliative Medicine [facility] [address] [place] [address] Marsha Lowe MD [address] [place] [address] 11/24/2024 1:00 PM EST Office Visit Gynecology/Oncology, [place] [address] [place] [address] Mauricio Ramirez PA-C [address] [place] [address] 12/29/2024 2:00 PM EST Office Visit Hematology/Oncology [facility] [address] [place] [address] Nils Reid MD [address] [facility] [place] [address] Scheduled Procedures Name Priority Associated Diagnoses Date/Ti [...] Additional history exists CKD PHOS USE SMARTSET 44744 03/23/202502/25, 04/07/2023, 03/27/2022, Additional history exists CKD HGB USE SMARTSET 34024 08/31/202508/31, 08/31/2024, 07/15/2024, Additional history exists HPV [...] this encounter Medical Devices Implanted Type Area Inspector Returned Materials Device Identifier Shelf Expiration Date Model / Serial / Lot Stent Assurant [id number] - [id number] Implanted:Qty: 1 on 06/24/2017 by Oliverio Singh [place] [facility] [place]: Iliac MEDTRONIC : VASCULAR 11/22/2017 [id number] / / [id number] Lens Intraoc 17.0 - [id number] - [id number] Implanted:Qty: 1 on 04/13/2021 by aJret Trotter MD at OR [facility] Left: Eye BAUSCH & LOMB 09/25/2025 [id number] / [id number] / [id number] Lens Intraoc 17.0 - [id number] - [id number] Implanted:Qty: 1 on 05/01/2021 by Jaret Trotter MD at OR [facility] Right: Eye BAUSCH & LOMB 11/26/2025 [id number] / [id number] / [id number] documented as of this encounter Visit Diagnoses Diagnosis 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 No Care Teams Academic Director Relationship Specialty Start Date End Date Ila Fung DO [address] [place] [address] PCP - General Family Medicine 10/10/16 documented as of this encounter
--- OUTSIDE RECORDS SUMMARY | 2025-02-04 02:41 | External Medical Summary | Summary of Care ---
Author Name Unknown Organization [facility] Address [address] [facility] [place] [address] Phone [phone] Care Team Providers Care Bridge Construction Inspector Name Role Phone Ila Fung DO Primary Care Provider [phone] Encounter Details Date Type Department Care Team (Late st Contact Info) Description 11/16/2024 Population Health External Data Unspecified Department Allergies No known active allergiesdocumented as of this encounter (statuses as of 11/16/2024) Medications ASPIRIN 81 MG PO TABS Take [...] in the morning. 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 06/20/2017 Former smoker 06/20/2017 HTN, goal below 140/90 02/15/2015 Alcohol dependence in remission 06/15/2013 Hyperlipidemia with target LDL less than 100 Overview (02/26/2016): ICD-10 update of inactive term Type 2 diabetes, HbA1C goal < 8% documented as of this encounter (statuses as of 11/16/2024) Resolved Problems Problem Noted Date Diagnosed Date [...] trunk 03/15/2013 02/16/20 15 Urinary incontinence 09/15/2012 04 015 Overview (07/28/2017): ICD-10 update of inactive [...] as of this encounter (statuses as of 11/16/2024) Immunizations Name Administration Dates Next Due COVID-19 mRNA, LNP-s, No Pre serve, 2-Dose Series ([employer]) 01/31/2022,07/26/2021,01/13/2021,12/23 Pneumococcal Polysaccharide PPV23 (Pneumovax) 10/08/2022 Season [...] 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 Not on file Not on maricruz e documented as of this encounter Plan of Treatment Upcoming Encounters Date Type Department Care Team (Late st Contact Info) Description 12/08/2024 9:30 AM EST Office Visit Palliative Medicine [facility] [address] [facility] [address] [place] [address] Marsha Lowe MD [address] [place] [address] [address] [place] [address] 12/29/2024 2:00 PM EST Office Visit Hematology/Oncology [facility] [address] [place] [address] Nils Reid MD [address] [facility] [place] [address] Scheduled Procedures Name Priority Associated Diagnoses Date/Ti [...] 07/04/2021, 08/04/2020, Additional history exists Albumin/Creatinine Ratio 08/26/202408/26/2 023, 10/08/2022, 03/11/2017, Additional history exists HbA1c 09/23/2024 03/23/2024, 03/27, 10/08/2022, Additional history exists GFR 02/28/2025 08/31/2024, 06/27, 06/14/2024, Additional history exists B-12 03/23/2025 03/23/2024, 03/27, 03/27/2022, Additional history exists CKD PHOS USE SMARTSET 06884 03/23/202502/254, 04/07/2023, 03/27/2022, Additional history exists CKD HGB USE SMARTSET 73024 08/31/202508/31, 08/31/2024, 07/15/2024, Additional history exists HPV [...] this encounter Medical Devices Implanted Type Area Network Engineer Administrator Device Identifier Shelf Expiration Date Model / Serial / Lot Stent Assurant [id number] - [id number] Implanted:Qty: 1 on 06/24/2017 by Oliverio Singh MD at [place] [facility] [place] Right: Iliac MEDTRONIC : VASCULAR 11/22/2017 [id number] / / [id number] Lens Intraoc 17.0 - [id number] - [id number] Implanted:Qty: 1 on 04/13/2021 by Jaret Trotter MD at OR [facility] Left: Eye BAUSCH & LOMB 09/25/2025 [id number] / [id number] / [id number] Lens Intraoc 17.0 - [id number] - [id number] Implanted:Qty: 1 on 05/01/2021 by Jaret Trotter MD at OR [facility] Right: Eye BAUSCH & LOMB 11/26/2025 [id number] / [id number] / [id number] documented as of this encounter Advance Directives [...] Power of Attor osmani? No Care Teams Bridge Construction Inspector Relationship Specialty Start Date End Date Ila Fung DO [address] [place] [address] PCP - General Family Medicine 10/10/16 documented as of this encounter
--- OUTSIDE RECORDS SUMMARY | 2025-02-04 02:41 | External Medical Summary | Summary of Care ---
Author Name Unknown Organization [facility] Address [address] [place] [address] Phone [phone] Care Team Providers Care Hand Stapler Name Role Phone Ila Fung DO Primary Care Provider [phone] Reason for Visit * Reason Onset Date Comments Senior Mobile Developer Documentation 10/21/2024 AD Scan audit Encounter Details Date Type Department Care Team (Late st Contact Info) Description 10/21/2024 Telephone Care Management, [place] [address] [place] [address] Elisabeth Caro, MEDICAL RESEARCH SCIENTIST Senior Mobile Developer Documentation (AD Scan audit) Allergies No known active allergiesdocumented as of this encounter (statuses as of 10/21/2024) Medications ASPIRIN 81 MG PO TABS Take [...] in the morning. 14 Each 4 Active documented as of this encounter (statuses as of 10/21/2024) Active Problems Problem Noted Date Diagnosed Date [...] 2 with diabetic peripheral neuropathy Atherosclerosis of [place]on of right lower extremity with intermittent claudication 06/20/2017 Former smoker 06/20/2017 HTN, goal below 140/90 02/15/2015 Alcohol dependence in remission 06/15/2013 Hyperlipidemia with target LDL less than 100 Overview (02/26/2016): ICD-10 update of inactive term Type 2 diabetes, HbA1C goal < 8% documented as of this encounter (statuses as of 10/21/2024) Resolved Problems Problem Noted Date Diagnosed Date [...] as of this encounter (statuses as of 10/21/2024) Immunizations Name Administration Dates Next Due COVID-19 mRNA, LNP-s, No Pre serve, 2-Dose Series ([employer]) 01/31/2022,07/26/2021,01/13/2021,12/23 Pneumococcal Polysaccharide PPV23 (Pneumovax) 10/08/2022 Season [...] 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 All properly executed and valid. Additional comments: If appropriate, Health Care Agent contact information updated and advance directive document attached to support surrogate decision maker title. Changes made in Type Proof Reproducer to clarify Document Type and/or placement in ACP Documents display. Duplicate documents have been moved to Media Tab Elisabeth Caro LCSW [facility] F[employer]-Safe Software Development Specialist General Email: [email or web address] General documented in this encounter Plan of Treatment Upcoming Encounters Date Type Department Care Team (Late st Contact Info) Description 11/24/2024 1:00 PM EST Office Visit Gynecology/Oncology, [place] [address] [place] [address] Mauricio Ramirez PA-C [address] [place] [address] 12/08/2024 9:30 AM EST Office Visit Palliative Medicine [facility] [address] [place] [address] Marsha Lowe MD [address] [place] [address] 12/29/2024 2:00 PM EST Office Visit Hematology/Oncology [address] [phone] Nils Reid MD [address] [place] [address] Scheduled Procedures Name Priority Associated Diagnoses Date/Ti [...] Additional history exists CKD PHOS USE SMARTSET 54055 03/23/202502/25, 04/07/2023, 03/27/2022, Additional history exists CKD HGB USE SMARTSET 40553 08/31/202508/31, 08/31/2024, 07/15/2024, Additional history exists HPV [...] this encounter Medical Devices Implanted Type Area Trim Machine Adjuster Device Identifier Shelf Expiration Date Model / Serial / Lot Stent Assurant [id number] - [id number] Implanted:Qty: 1 on 06/24/2017 by Oliverio Singh MD at [place] [facility] Right: Iliac MEDTRONIC : VASCULAR 11/22/2017 [id number] / / [id number] Lens Intraoc 17.0 - [id number] - [id number] Implanted:Qty: 1 on 04/13/2021 by Jaret Trotter MD at OR [facility] Left: Eye BAUSCH & LOMB 09/25/2025 [id number] / [id number] / [id number] Lens Intraoc 17.0 - [id number] - [id number] Implanted:Qty: 1 on 05/01/2021 by Jaret Trotter MD at OR [facility] Right: Eye BAUSCH & LOMB 11/26/2025 [id number] / [id number] / [id number] documented as of this encounter Advance Directives [...] Power of Attor osmani? No Care Teams Hand Stapler Relationship Specialty Start Date End Date Ila Fung DO [address] [place] [address] PCP - General Family Medicine 10/10/16 documented as of this encounter
--- OUTSIDE RECORDS SUMMARY | 2025-02-04 02:42 | External Medical Summary | Summary of Care ---
Author Name Unknown Organization [facility] Address [address] [facility] [place] [address] Phone [phone] Care Team Providers Care Lcpc Name Role Phone Ila Fung DO Primary Care Provider [phone] Reason for Visit * Reason Onset Date Comments Fax 09/02/2024 Encounter Details Date Type Department Care Team (Late st Contact Info) Description 09/02/2024 Telephone Family Practice [facility] [address] [place] [address] Ila Fung DO [address] [place] [address] Fax Allergies No known active allergiesdocumented as of this encounter (statuses as of 09/06/2024) Medications ASPIRIN 81 MG PO TABS Take [...] Tablet 07/21/2024 4:05 PM EDT 4 Active Senna 8.6 MG Oral Tablet Take 1 Tablet by mouth daily as needed for Constipation for up to 1 dose. 14 Tablet 07/21/2024 4:05 PM EDT 4 Active Simethicone 80 MG Oral Tablet Chewable (Mylicon) Chew & swallow 1 Tablet by mouth as needed for Gas. 30 Tablet 07/21/2024 4:05 PM EDT 4 Active ALPRAZolam 0.5 MG Oral Tablet (xaNAX)Indicati ons:Insomnia TAKE 1 TABLET BY MOUTH ONCE DAILY AT BEDTIME NEEDED FOR ANXIETY 15 Tablet 4 Active Ondansetron HCl 8 MG Oral Tablet (Zofran)Indicat ions:Endometria l cancer (HCC) Take 1 Tablet by mouth every 8 hours as needed for Nausea. 30 Tablet 2 4 Active Prochlorperazin e Maleate 10 MG Oral Tablet (Compazine)Irena cations:Endomet rial cancer (HCC) Take 1 Tablet by mouth every 6 hours as needed for Nausea. 30 Tablet 3 4 Active dexAMETHasone 4 MG Oral Tablet (Decadron)Indic ations:Endometr ial cancer (HCC) Take 20mg (5 tablets) the night before and morning of chemotherapy 60 Tablet 4 Active Loratadine 10 MG Oral Tablet (Claritin)Indic ations:Endometr ial cancer (HCC) Take 1 tablet by mouth daily x5 days starting the day of chemotherapy 30 Tablet 4 Active Lidocaine-Prilo todd 2.5-2.5 % External Cream (Emla)Indicatio ns:Endometrial cancer (HCC) APPLY TO SKIN OVER MEDIPORT & COVER 1HR PRIOR TO ACCESSING. 30 g 1 4 Active documented as of this encounter (statuses as of 09/06/2024) Active Problems Problem Noted Date Diagnosed Date [...] 2 with diabetic peripheral neuropathy Atherosclerosis of [place] brandon of right lower extremity with intermittent claudication 06/20/2017 Former smoker 06/20/2017 HTN, goal below 140/90 02/15/2015 Alcohol dependence in remission 06/15/2013 Hyperlipidemia with target LDL less than 100 Overview (02/26/2016): ICD-10 update of inactive term Type 2 diabetes, HbA1C goal < 8% documented as of this encounter (statuses as of 09/06/2024) Resolved Problems Problem Noted Date Diagnosed Date [...] as of this encounter (statuses as of 09/06/2024) Immunizations Name Administration Dates Next Due COVID-19 mRNA, LNP-s, No Pre serve, 2-Dose Series ([place]) 01/31/2022,07/26/2021,01/13/2021,12/23 Pneumococcal Polysaccharide PPV23 (Pneumovax) 10/08/2022 Season [...] 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 Images/reports pushed * Telephone Encounter - Joan Daley OSA - 09/02/2024 10:32 AM EST Caller requesting the following information to be faxed: Name/Company of caller: [employer]yoti Izaguirre Information requested to be faxed: Mammogram/ultrasound Fax number: [phone] Attention to Name/Company: [employer] Any additional information?: patient needs these sent over to to specialist [place] /not showing if the doctor has already read these documented in this encounter Plan of Treatment Upcoming Encounters Date Type Department Care Team (Late st Contact Info) Description 11/24/2024 1:00 PM EST Office Visit Gynecology/Oncology, [place] [address] [place] [facility] [place] [address] Mauricio Ramirez PA-C [address] [facility] [address] 12/29/2024 2:00 PM EST Office Visit Hematology/Oncology [facility] [place] [address] [facility] [place] [address] Nils Reid MD [address] [facility] [place] [address] Scheduled Procedures Name Priority Associated Diagnoses Date/Ti [...] 07/04/2021, 08/04/2020, Additional history exists Albumin/Creatinine Ratio 08/26/202408/26/ 023, 10/08/2022, 03/11/2017, Additional history exists HbA1c 09/23/2024 03/23/2024, 03/27, 10/08/2022, Additional history exists GFR 02/28/2025 08/31/2024, 06/27, 06/14/2024, Additional history exists B-12 03/23/2025 03/23/2024, 03/27, 03/27/2022, Additional history exists CKD PHOS USE SMARTSET 63640 03/23/202502/25, 04/07/2023, 03/27/2022, Additional history exists CKD HGB USE SMARTSET 37865 08/31/202508/31, 08/31/2024, 07/15/2024, Additional history exists HPV [...] this encounter Medical Devices Implanted Type Area Motor Bus Driver Device Identifier Shelf Expiration Date Model / Serial / Lot Stent Assurant [id number] - [id number] Implanted:Qty: 1 on 06/24/2017 by Oliverio Singh MD at OR [facility] Right: Iliac [employer] : VASCULAR 11/22/2017 [id number] / / [id number] Lens Intraoc 17.0 - [id number] - [id number] Implanted:Qty: 1 on 04/13/2021 by Jaret Trotter MD at OR [facility] Left: Eye BAUSCH & LOMB 09/25/2025 [id number] / [id number] / [id number] Lens Intraoc 17.0 - [id number] - [id number] Implanted:Qty: 1 on 05/01/2021 by Jaret Trotter MD at OR [facility] Right: Eye BAUSCH & LOMB 11/26/2025 [id number] / [id number] / [id number] documented as of this encounter Advance Directives [...] Power of Attor osmani? No Care Teams Lcpc Relationship Specialty Start Date End Date Ila Fung DO [address] [place] [address] PCP - General Family Medicine 10/10/16 documented as of this encounter
--- OUTSIDE RECORDS SUMMARY | 2025-02-04 02:42 | External Medical Summary | Summary of Care ---
Author Name Unknown Organization [facility] Address [address] [facility] [place] [address] Phone [phone] Care Team Providers Care Sand Technician Name Role Phone Ila Fung DO Primary Care Provider [phone] Encounter Details Date Type Department Care Team (Late st Contact Info) Description 06/09/2024 Telephone Gynecology/Obstetrics [facility] DEPT CLOSED - 08/26/24 [address] [facility] [place] [address] Madelin Acosta MD [address] [facility] [place] [id number] Allergies No known active allergiesdocumented as of this encounter (statuses as of 09/08/2024) Medications ASPIRIN 81 MG PO TABS Take by mouth. Active Clotrimazole-B etamethasone 1-0.05 % External Cream (Lotrisone) Apply topically to affected area 2 times a day for 14 days. To affected area for 4 weeks, or until healed. 45 g 04/01/20 24 024 Discontinued ALPRAZolam 0.5 MG Oral Tablet (xaNAX)Indicat ions:Insomnia TAKE 1 TABLET BY MOUTH ONCE DAILY AT BEDTIME NEEDED FOR ANXIETY 15 Tablet 05/17/20 24 024 Discontinued medroxyPROGEST ERone Acetate 10 MG Oral Tablet (Provera)Indic ations:PMB (postmenopausa l bleeding) Take 1 Tablet by mouth daily. 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 06/20/2017 Former smoker 06/20/2017 HTN, goal below 140/90 02/15/2015 Alcohol dependence in remission 06/15/2013 Hyperlipidemia with target LDL less than 100 Overview (02/26/2016): ICD-10 update of inactive term Type 2 diabetes, HbA1C goal < 8% documented as of this encounter (statuses as of 09/08/2024) Resolved Problems Problem Noted Date Diagnosed Date [...] as of this encounter (statuses as of 09/08/2024) Immunizations Name Administration Dates Next Due COVID-19 mRNA, LNP-s, No Pre serve, 2-Dose Series ([facility]) 01/31/2022,07/26/2021,01/13/2021,02/27 /2021 Pneumococcal Polysaccharide PPV23 (Pneumovax) 10/08/2022 Season Influenza, [...] 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 Thanks documented in this encounter Plan of Treatment Upcoming Encounters Date Type Department Care Team (Late st Contact Info) Description 11/24/2024 1:00 PM EST Office Visit Gynecology/Oncology, [place] [address] [place] [address] Mauricio Ramirez PA-C [address] [place] [phone] 12/29/2024 2:00 PM EST Office Visit Hematology/Oncology [facility] [address] [facility] [place] [phone] Nils Reid MD [address] [facility] [place] [address] Scheduled Procedures Name Priority Associated Diagnoses Date/Ti [...] Additional history exists CKD PHOS USE SMARTSET 12827 03/23/202502/25, 04/07/2023, 03/27/2022, Additional history exists CKD HGB USE SMARTSET 66894 08/31/202508/31, 08/31/2024, 07/15/2024, Additional history exists HPV [...] this encounter Medical Devices Implanted Type Area Manager Intelligence Device Identifier Shelf Expiration Date Model / Serial / Lot Stent Assurant [id number] - [id number] Implanted:Qty: 1 on 06/24/2017 by Oliverio Singh MD at OR [facility] Right: Iliac [employer] : VASCULAR 11/22/2017 [id number] / / [id number] Lens Intraoc 17.0 - [id number] - [id number] Implanted:Qty: 1 on 04/13/2021 by Jaret Trotter MD at OR [facility] Left: Eye BAUSCH & LOMB 09/25/2025 [id number] / [id number] / [id number] Lens Intraoc 17.0 - [id number] - [id number] Implanted:Qty: 1 on 05/01/2021 by Jaret Trotter MD at OR [facility] Right: Eye BAUSCH & LOMB 11/26/2025 [id number] / [id number] / [id number] documented as of this encounter Advance Directives [...] Power of Attor osmani? No Care Teams Sand Technician Relationship Specialty Start Date End Date Ila Fung DO [address] [facility] [place] [address] PCP - General Family Medicine 10/10/16 documented as of this encounter
--- OUTSIDE RECORDS SUMMARY | 2025-02-04 02:42 | External Medical Summary | Summary of Care ---
Author Name Unknown Organization [facility] Address [address] [facility] [place] [address] Phone [phone] Care Team Providers Care Glue Jointer Operator Name Role Phone Ila Fung DO Primary Care Provider Reason for Visit * Reason Onset Date Comments Precert Not Needed 08/31/2024 Encounter Details Date Type Department Care Team (Late st Contact Info) Description 08/31/2024 Telephone Hematology/Oncology Treatment, [place] [address] [facility] [address] Nils Reid MD [address] [place] [address] Precert Not Needed Allergies No known active allergiesdocumented as of this encounter (statuses as of 09/02/2024) Medications Medication Sig Dispensed Refills Start Date End Date Status ASPIRIN 81 MG PO TABS Take by mouth. Active traMADol HCl 50 MG Oral Tablet (Ultram) Take 1 Tablet by mouth every 4 hours as needed for moderate or severe pain 20 Tablet 07/21/2024 Active Ondansetron HCl 4 MG Oral Tablet Take 1 Tablet by mouth every 8 hours as needed for Nausea. 20 Tablet 07/21/2024 Active Senna 8.6 MG Oral Tablet Take 1 Tablet by mouth daily as needed for Constipation for up to 1 dose. 14 Tablet 07/21/2024 Active Simethicone 80 MG Oral Tablet Chewable (Mylicon) Chew & swallow 1 Tablet by mouth as needed for Gas. 30 Tablet 07/21/2024 Active ALPRAZolam 0.5 MG Oral Tablet (xaNAX)Indications :Insomnia TAKE 1 TABLET BY MOUTH ONCE DAILY AT BEDTIME NEEDED FOR ANXIETY 15 Tablet 08/30/2024 Active Ondansetron HCl 8 MG Oral Tablet (Zofran)Indication s:Endometrial cancer (HCC) Take 1 Tablet by mouth every 8 hours as needed for Nausea. 30 Tablet 2 08/31/2024 Active Prochlorperazine Maleate 10 MG Oral Tablet (Compazine)Indicat ions:Endometrial cancer (HCC) Take 1 Tablet by mouth every 6 hours as needed for Nausea. 30 Tablet 3 08/31/2024 Active dexAMETHasone 4 MG Oral Tablet (Decadron)Indicati ons:Endometrial cancer (HCC) Take 20mg (5 tablets) the night before and morning of chemotherapy 60 Tablet 08/31/2024 Active Loratadine 10 MG Oral Tablet (Claritin)Indicati ons:Endometrial cancer (HCC) Take 1 tablet by mouth daily x5 days starting the day of chemotherapy 30 Tablet 08/31/2024 Active Lidocaine-Prilocai ne 2.5-2.5 % External Cream (Emla)Indications: Endometrial cancer (HCC) APPLY TO SKIN OVER MEDIPORT & COVER 1HR PRIOR TO ACCESSING. 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 06/20/2017 Former smoker 06/20/2017 HTN, goal below 140/90 02/15/2015 Alcohol dependence in remission 06/15/2013 Hyperlipidemia with target LDL less than 100 Overview: ICD-10 update of inactive term Type 2 diabetes, HbA1C goal < 8% documented as of this encounter (statuses as of 09/02/2024) Resolved Problems Problem Noted Date Diagnosed Date [...] 03/15/2013 02/16/20 15 Urinary incontinence 09/15/2012 015 Overview: ICD-10 update of inactive term Localized, primary osteoarth ritis of ankle or foot 12/05/2011 07/31/2012 Overview: S/p bilateral bunion surgeries 15 years ago Insomnia 12/05/2011 10/15/2018 Overview: ICD-10 update of inactive term Localized, primary osteoarth ritis of ankle or foot 12/05/2011 07/17/2018 Dyslipidemia 07/31/2012 Overview: Taking lipitor > 10 years Prediabetes 09/15/2012 Overview: on metformin HTN, goal below 140/80 02/15 Type 2 diabetes mellitus wit h hemoglobin A1c goal of less than 7.0% 12/05/2011 Overview: ICD-10 update of inactive term HSV (herpes simplex virus) a nogenital infection 10/15/2018 Overview: 3-4 outbreaks in last 10 years, used valcyclovir documented as of this encounter (statuses as of 09/02/2024) Immunizations Name Administration Dates Next Due COVID-19 mRNA, LNP-s, No Pre serve, 2-Dose Series ([employer]) 01/31/2022,07/26/2021,01/13/2021,12/23 Pneumococcal Polysaccharide PPV23 (Pneumovax) 10/08/2022 Season [...] years and over) Not on file 04/13/2024 Sex and Gender Information Value Date Recorded Sex Assigned at Female 07/26/2024 10:50 AM EDT Gender Identity Female 07/26/2024 10:50 AM EDT Sexual Orientation Straight 07/26/2024 10 :50 AM EDT Job Start Date Occupation Industry Not on file Not on file Not on file documented as of this encounter Miscellaneous Notes * Telephone Encounter - Johnna Park RN - 09/02/2024 7:45 AM EST Patient declined chemotherapy, does not need zofran rx any longer. Precert: FYI, request no longer needed. Thanks! * Telephone Encounter - Stacy Grissom OSA - 08/31/2024 4:16 PM EST [facility] Authorization Submission Submission Information: Medication: ONDANSETRON HCL 8 MG TABLET Portal used: [facility] Insurance: [facility] Authorization #/[place]: [id number] Thank you, Stacy Grissom Medication Medical Illustrator III 08/31/2024, 4:16 PM * Telephone Encounter - Johnna Park RN - 08/31/2024 3:06 PM EST ICD-10: c54.1 Start date: 1 week Drugs: zofran prescription Disp Refills Start End Ondansetron HCl 8 MG Oral Tablet (Zofran) 30 Tablet 2 08/31/2024 -- Sig - Route: Take 1 Tablet by mouth every 8 hours as needed for Nausea. - Oral Physician: Dr Nils Reid Comments: Received fax from [facility] pharmacy that zofran requires prior auth. documented in this encounter Plan of Treatment Upcoming Encounters Date Type Department Care Team (Late st Contact Info) Description 11/24/2024 1:00 PM EST Office Visit Gynecology/Oncology, [place] [address] [place] [address] Mauricio Ramirez PA-C [address] [place] [address] 12/29/2024 2:00 PM EST Office Visit Hematology/Oncology [facility] [address] [facility] [place] [phone] Nils Reid MD [address] [facility] [address] Scheduled Procedures Name Priority Associated Diagnoses Date/Ti [...] Additional history exists CKD PHOS USE SMARTSET 63943 03/23/202502/25, 04/07/2023, 03/27/2022, Additional history exists CKD HGB USE SMARTSET 94747 08/31/202508/31, 08/31/2024, 07/15/2024, Additional history exists HPV [...] this encounter Medical Devices Implanted Type Area Men'S Basketball Coach Device Identifier Shelf Expiration Date Model / Serial / Lot Stent Assurant [id number] - [id number] Implanted:Qty: 1 on 06/24/2017 by Oliverio Singh [place] [facility] [place]: Iliac [employer] : VASCULAR 11/22/2017 [id number] / / [id number] Lens Intraoc 17.0 - [id number] - [id number] Implanted:Qty: 1 on 04/13/2021 by Jaret Trotter MD at OR [facility] Left: Eye BAUSCH [employer] LOMB 09/25/2025 [id number] / [id number] / [id number] Lens Intraoc 17.0 - [id number] - [id number] Implanted:Qty: 1 on 05/01/2021 by Jaret Trotter MD at OR [facility] Right: Eye BAUSCH & LOMB 11/26/2025 [id number] / [id number] / [id number] documented as of this encounter Advance Directives [...] Power of Attor osmani? No Care Teams Glue Jointer Operator Relationship Specialty Start Date End Date Ila Fung DO [address] [place] [address] PCP - General Family Medicine 10/10/16 documented as of this encounter
--- OUTSIDE RECORDS SUMMARY | 2025-02-04 02:42 | External Medical Summary | Summary of Care ---
Author Name Unknown Organization [facility] Address [address] [facility] [place] [address] Phone [phone] Care Team Providers Care Horticultural Worker Name Role Phone Leon Ivan DO Primary Care Provider [phone] Reason for Visit * Reason Comments eRx-Medication Refill Encounter Details Date Type Department Care Team (Late st Contact Info) Description 09/29/2024 Refill Family Practice [facility] [address] [place] [address] Leon Ivan DO [address] [place] [address] Insomnia Allergies No known active allergiesdocumented as of this encounter (statuses as of 09/30/2024) Medications ASPIRIN 81 MG PO TABS Take by mouth. Activ e traMADol HCl 50 MG Oral Tablet (Ultram) Take 1 Tablet by mouth every 4 hours as needed for moderate or severe pain 20 Tablet 4 4:05 PM EDT 07/21/20 24 Active Ondansetron HCl 4 MG Oral Tablet [...] day of chemotherapy 30 Tablet 08/31/20 24 Active Additional Information Patient not [...] as needed for Pain, Severe. 15 Tablet 09/08/20 24 Active ALPRAZolam 0.5 MG Oral Tablet (xaNAX)Indicat ions:Insomnia TAKE 1 TABLET BY MOUTH ONCE DAILY AT BEDTIME NEEDED FOR ANXIETY 15 Tablet 09/30/20 24 Active ALPRAZolam 0.5 MG Oral Tablet (xaNAX)Indicat ions:Insomnia TAKE 1 TABLET BY MOUTH ONCE DAILY AT BEDTIME NEEDED FOR ANXIETY 15 Tablet 08/30/20 24 024 Discontinued documented as of this encounter (statuses as of 09/30/2024) Active Problems Problem Noted Date Diagnosed Date [...] 2 with diabetic peripheral neuropathy Atherosclerosis of [place] ar brandon of right lower extremity with intermittent claudication 06/20/2017 Former smoker 06/20/2017 HTN, goal below 140/90 02/15/2015 Alcohol dependence in remission 06/15/2013 Hyperlipidemia with target LDL less than 100 Overview (02/26/2016): ICD-10 update of inactive term Type 2 diabetes, HbA1C goal < 8% documented as of this encounter (statuses as of 09/30/2024) Resolved Problems Problem Noted Date Diagnosed Date [...] as of this encounter (statuses as of 09/30/2024) Immunizations Name Administration Dates Next Due COVID-19 mRNA, LNP-s, No Pre serve, 2-Dose Series ([place]) 01/31/2022,07/26/2021,01/13/2021,12/23 Pneumococcal Polysaccharide PPV23 (Pneumovax) 10/08/2022 Season [...] file Not on file Not on file household personal assistant Not on file Not on file Not on maricruz e documented as of this encounter Miscellaneous Notes * Telephone Encounter - Leon Ivan DO - 09/30/2024 1:39 PM ESTSigned Prescriptions: Disp Refills ALPRAZolam 0.5 MG Oral Tablet (xaNAX) 15 Tab*0 Sig: TAKE 1 TABLET BY MOUTH ONCE DAILY AT BEDTIME NEEDED FOR ANXIETY Authorizing Provider: LEON IVAN * Telephone Encounter - Destinee Carrasco [facility] - 09/30/2024 1:27 PM ESTPending Prescriptions: Disp Refills ALPRAZolam 0.5 MG Oral Tablet 15 Tab*0 Sig: TAKE 1 TABLET BY MOUTH ONCE DAILY AT BEDTIME NEEDED FOR ANXIETY * Telephone Encounter - Destinee Carrasco [facility] - 09/30/2024 1:26 PM EST I have reviewed the patient’s controlled substance dispensing history in the Prescription Drug Monitoring Program in compliance with the [facility] regulations before prescribing a controlled substance. PDMP checked on 09/30/2024. Pending Prescriptions: Disp Refills ALPRAZolam 0.5 MG Oral Tablet (xaNAX) [Ph*15 Tab*0 Sig: TAKE 1 TABLET BY MOUTH ONCE DAILY AT BEDTIME NEEDED FOR ANXIETY Last Visit: 05/18/2024 (in office), 09/04/2020 (telemedicine) Next Visit: Visit date not found Date medication was last filled: 08/30/24 Date medication is due for refill: 09/13/24 Pharmacy: [facility] [address] [place] [address] [facility] Is this request for a controlled substance? Yes and Urine Drug Screen Not completed Toxicology results: No results found for this or any previous visit. Please approve if appropriate. Thanks, Destinee Carrasco, PharmD Clinical Pharmacist [facility] ([facility]) [phone] 09/30/2024, 1:26 PM documented in this encounter Plan of Treatment Upcoming Encounters Date Type Department Care Team (Late st Contact Info) Description 11/24/2024 1:00 PM EST Office Visit Gynecology/Oncology, [place] [address] [place], [place] [phone] Mauricio Ramirez PA-C [address] [place] [phone] 12/29/2024 2:00 PM EST Office [facility] [address] [facility] [place] [phone] Nils Reid MD [address] [facility] [address] Scheduled Procedures Name Priority Associated Diagnoses Date/Ti [...] Additional history exists CKD PHOS USE SMARTSET 65203 03/23/202502/25, 04/07/2023, 03/27/2022, Additional history exists CKD HGB USE SMARTSET 00847 08/31/202508/31, 08/31/2024, 07/15/2024, Additional history exists HPV [...] this encounter Medical Devices Implanted Type Area Document Restorer Device Identifier Shelf Expiration Date Model / Serial / Lot Stent Assurant [id number] - [id number] Implanted:Qty: 1 on 06/24/2017 by Oliverio Singh MD at OR [facility] Right: Iliac [employer] : VASCULAR 11/22/2017 [id number] / / [id number] Lens Intraoc 17.0 - [id number] - [id number] Implanted:Qty: 1 on 04/13/2021 by Jaret Trotter MD at OR [facility] Left: Eye BAUSCH [employer] LOMB 09/25/2025 [id number] / [id number] / [id number] Lens Intraoc 17.0 - [id number] - [id number] Implanted:Qty: 1 on 05/01/2021 by Jaret Trotter MD at OR [facility] Right: Eye BAUSCH & LOMB 11/26/2025 [id number] / [id number] / [id number] documented as of this encounter Visit Diagnoses Diagnosis Insomnia Insomnia, unspecified documented in this encounter Advance Directives Documents on File Type Date Recorded Patient Api Architect Expl anatpadmini POL 09/09/2024 signed on 09/08 * Full Code [...] Power of Attor osmani? No Care Teams Horticultural Worker Relationship Specialty Start Date End Date Leon Ivan DO [address] [place] [address] PCP - General Family Medicine 10/10/16 documented as of this encounter
--- OUTSIDE RECORDS SUMMARY | 2025-02-04 02:42 | External Medical Summary | Summary of Care ---
Author Name Unknown Organization [facility] Address [address] [place] [address] Phone [phone] Care Team Providers Care Deputy Commissioner Name Role Phone Ila Fung DO Primary Care Provider [phone] Reason for Visit * Reason Comments NEW PATIENT Encounter Details Date Type Department Care Team (Late st Contact Info) Description 09/08/2024 10:30 AM EST Office Visit Palliative Medicine [facility] [address] [place] [address] Marsha Lowe MD [address] [place] [address] Cancer related pain*; DNR (do not resuscitate); Palliative care encounter; Neoplasm related pain; Endometrial cancer (HCC) Allergies No known active allergiesdocumented as [...] AT BEDTIME NEEDED FOR ANXIETY 15 Tablet Active Ondansetron HCl 8 MG Oral Tablet [...] as needed for Pain, Severe. 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 Not on file Not on maricruz e documented as of this encounter Last Filed Vital Signs Vital Sign Reading Time Taken Comments Blood Pressure 138/86 09/08/2024 10:22 AM EST Pulse 94 09/08/2024 10:22 AM EST Temperature 36.3 °C (97.4 °F) 09/08/2024 10:[address] Respiratory Rate - - Oxygen Saturation 96% 09/08/2024 10:22 AM EST Inhaled Oxygen Concentration - - Weight 67 kg (147 lb 9.6 oz) 09/08/2024 10:22 AM EST Height 165.1 cm (5' 5") 09/08/2024 10:22 AM EST Body Mass Index 24.56 09/08/2024 10:22 AM EST documented in this encounter Patient Instructions * Patient Instructions* Marsha Lowe MD - 09/08/2024 10:27 AM EST Our Palliative Medicine Clinic is [...] needed. You can contact our office at [phone], which is our clinic in [place], or you can message us on [place]. If you have an emergency outside of these hours, we recommend calling your primary care clinic, Oncology office, or going to the ER if you have a medical emergency. Call us if you need a refill or to adjust your pain medications If you do need to change the dose or anything we will see you in our clinic at [facility] Put the pink POLST form on the fridge and the other form too documented in this encounter Progress Notes * Marsha Lowe MD - 09/08/2024 10:25 AM EST Images from the original note were not included. Palliative Medicine Outpatient Consult Note [facility] Palliative Medicine Outreach [address] [place] [address] Name: Jyoti Izaguirre Date: 09/08/2024 Referring Provider: Reason for Consult: Goals of care; Pain and symptom management Patient accompanied by friend Jaquelin, history obtained from patient and friend. HPI: Jyoti Izaguirre is a 83 year old female with a primary diagnosis of uterine clear cell carcinoma, s/p surgery, who is clear she does NOT want any sort of treatment. Overall she is doing well functionally. She has a good understanding of her illness, is aware it has spread, and was told she had stage 3 disease. She also likely has a separate primary breast cancer but does NOT want treatment or evaluation for it. She reports she saw her daughter in law go through cancer treatment and pass away so does not want to suffer. She wants to ensure she does not have pain during this process. Full discussion below, but in summary, she is ok with LIMITED treatments such as if she hurt her leg from a fall, but if declines, is DNR/DNI and wants to pass away at home. Palliative symptoms: Pain: Located at: Cramping on both sides, feels like menstrual cramps Currently taking: Takes Tylenol PRN, not daily, works when takes it Quality: Sharp at times Severity: Pain 01/03 Duration:Since surgery Modifying factors: none Nausea/Vomiting: no Appetite: "very good" - enjoys eating everything, except seafood, lots of sweets Constipation: regular Confusion: Memory is not that great, forgetful at times Sleep issues: sometimes sleeping OK Dyspnea: breathing feels OK, but if tries to exercise or does work has a funny feeling Mood issues: feels OK with things, has not told ppl beyond son and Jaquelin Falls: no major falls, minor ones Other: Functional Status: - Palliative Performance Scale: 100% - Activities of Daily Living: (bolded items indicate areas of independence) /6 BADL (transfer, toilet, continence, bathe, dress self, feed self) 6/7 IADL (meds, transport, telephone, shop, housekeeping, meal prep, money management) - Ambulates: Unassisted SHx: Family Support: Well supported. Jaquelin and her friend Vernell, she moved in 5 y ago to rent a room, and Vernell cares for her as well. Has a son in [place]. Has a friend locally as well for transportation. Also has big bunny. 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 Eyes: anicteric, sclera and conjunctiva normal. Neck: no stridor Chest: normal respiratory effort Abdominal: nondistended Extremities: no edema Neuro: alert, oriented to person, place, and time Psych: normal mood and affect Data Review: External notes reviewed: - Reviewed notes from Dr Reid, plan was to do chemotherapy from [facility] but pt declined Lab / Imaging Results: Cr 0.8 on 08/31, normal, ALT <5, normal on 08/31 Information obtained from Alisha, her friend for collateral history Decision-making Capacity: Does Patient have Decisional Capacity? y Does Patient have a Healthcare Agent? Y, son and Alisha Advanced Care Planning: AD: Has an AD that says she does NOT want treatment. She is clear she is a DNR She is ok with LIMITED tx She is ok with abx for comfort Does not want artificial nutrition, ok with IV hydration POLST completed, original given to patient, copy taken to be put into EMR under ACP docs but also scanned into Chart Review --> Scans OOH DNR completed as well See ACP note in ACP tab under heading bar ASSESSMENT/PLAN: Jyoti Izaguirre is a/an 83 year old female referred for consultation to Palliative Medicine with the primary diagnosis of: Endometrial cancer, stage 3, declines chemo / radiation / further follow up Likely breast CA, declines further workup Mild cancer related pain, resolves with Tylenol usually Retained functional status Goals of care - wants to be comfortable overall, when declines wants to pass comfortably Recommendations: Overall she is doing well. Reviewed when to get hospice onboard and the services they provide. For pain, will provide Oxycodone 5mg x 15 tablets. Reviewed ULICES, was not able to print it here. If she uses it frequently, will need an appt to talk more about this and titrate. If does take it often, should take Miralax or Senna 1 tab at night to help w/constipation. I have reviewed the patient’s controlled substance dispensing history in the Prescription Drug Monitoring Program in compliance with the [facility] regulations before prescribing a controlled substance. Does not need hospice / home health at this time. POLST and OOH DNR to go on refrigerator, copy scanned into EMR Follow up PRN. Pt is not able to do video visits. Next visit with me. She will see Dr Reid in december. Offered appt around that time, she will call us and let us know. If taking pain medication often and calls in for refill, will need to book appt. She wants to hold on booking for now. If needs hospice referral, I am happy to place it without another appt. Thank you for this consult. We appreciate the opportunity to take part in the care of your patient. Note routed back to referring provider and PCP DO Marsha Hilliard MD [facility] Palliative Medicine [phone] documented in this encounter Nursing Notes * Joan Preston, MED ASSIST - 09/08/2024 10:27 AM EST Patient identifed by name and [...] it for you? ALREADY ACTIVE Filed Vitals: 09/08/24 1022 BP: 138/86 Pulse: 94 Temp: 36.3 °C (97.4 °F) TempSrc: Tympanic SpO2: 96% Weight: 67 kg (147 lb 9.6 oz) Height: 1.651 m (5' 5") Patient was instructed to not get up on the exam table/exam chair until directed and assisted by their provider; patient is to remain seated in the chair/ wheelchair/ exam table/ exam chair for fall prevention and safety reasons. Patient is aware to have assistance to step down off exam table/exam chair with personnel. Patient voiced full comprehension of instructions. documented in this encounter Miscellaneous Notes * ACP (Advance Care Planning) - Marsha Lowe MD - 09/08/2024 11:20 AM EST Images from the original note were not included. Advance Care Planning Patient-centered Communication 09/08/2024 The patient/surrogate voluntarily agreed to participate in advance care planning discussion. They were advised that this is a separate service which may incur out of pocket cost in the form of copayment and/or deductibles. Location: Clinic Individual(s) present for conversation: Patient and Alisha Decisions Trivialaopsis [employer] Most Recent Value Past ~10 years 09/08/2024 11:20 Decisions CPR decision: Declines CPR 09/08/2024 Declines CPR Intubation/Mechanical Ventilation decision: Declines Intubation/mechanical ventilation 09/08/2024 Declines Intubation/mechanical ventilation Chemotherapy decision: Declines Chemotherapy 09/08/2024 Declines Chemotherapy Radiation therapy decision: Declines Radiation therapy 09/08/2024 Declines Radiation therapy Additional Comments Discerning What Matters Most to the Patient: Synopsis SmartLink Most Recent Value Past ~10 years 09/08/2024 11:20 Discerning What Matters Most to the Patient Their current SYMPTOMS include: Pain 09/08/2024 Pain They say their illness has CHANGED THEIR LIFE by: Less enjoyment (quality of life) 09/08/2024 Less enjoyment (quality of life) The patient considers these as 'UNACCEPTABLE OUTCOMES': "Being a vegetable" (define below) 09/08/2024 "Being a vegetable" (define below) Source: Content from Respecting Choices Program Aligning Care With What Matters Most: [employer] Most Recent Value Past ~10 years 09/08/2024 11:20 Aligning Care With What Matters Most Interventions/Choices: CPR;Intubation/mechanical ventilation;Chemotherapy;Radiation therapy 09/08/2024 CPR;Intubation/mechanical ventilation;Chemotherapy;Radiation therapy Rationale for Decisions She has a good understanding of her illness, is aware it has spread, and was told she had stage 3 disease. She also likely has a separate primary breast cancer but does NOT want treatment or evaluation for it. She reports she saw her daughter in law go through cancer treatment and pass away so does not want to suffer. She wants to ensure she does not have pain during this process. Reviewed hospice and timing of getting them involved POLST/ OOH DNR completed She is clear she is a DNR She is ok with LIMITED tx She is ok with abx for comfort Does not want artificial nutrition, ok with IV hydration POLST completed, original given to patient, copy taken to be put into EMR under ACP docs but also scanned into Chart Review --> Scans Source: Content from Respecting Choices Program 18 minutes spent in direct [id number] discussion today, Marsha Lowe MD documented in this encounter Plan of Treatment Upcoming Encounters Date Type Department Care Team (Late st Contact Info) Description 11/24/2024 1:00 PM EST Office Visit Gynecology/Oncology, [place] [address] [place] [address] Mauricio Ramirez PA-C [address] [place] [phone] 12/29/2024 2:00 PM EST Office Visit Hematology/Oncology [address] [place] [phone] Nils Reid MD [address] [facility] [place] [address] Scheduled Procedures Name Priority Associated Diagnoses Date/Ti [...] Additional history exists CKD PHOS USE SMARTSET 88370 03/23/202502/25, 04/07/2023, 03/27/2022, Additional history exists CKD HGB USE SMARTSET 72710 08/31/202508/31, 08/31/2024, 07/15/2024, Additional history exists HPV [...] this encounter Medical Devices Implanted Type Area Parks Recreation Director Device Identifier Shelf Expiration Date Model / Serial / Lot Stent Assurant [id number] - [id number] Implanted:Qty: 1 on 06/24/2017 by Oliverio Singh MD at [place] [facility] [place] Right: Iliac MEDTRONIC : VASCULAR 11/22/2017 [id number] / / [id number] Lens Intraoc 17.0 - [id number] - [id number] Implanted:Qty: 1 on 04/13/2021 by Jaret Trotter MD at OR [facility] Left: Eye BAUSCH & LOMB 09/25/2025 [id number] / [id number] / [id number] Lens Intraoc 17.0 - [id number] - [id number] Implanted:Qty: 1 on 05/01/2021 by Jaret Trotter MD at OR [facility] Right: Eye BAUSCH & LOMB 11/26/2025 [id number] / [id number] / [id number] documented as of this encounter Visit Diagnoses Diagnosis Cancer related pain- Primary Neoplasm related pain (acute) (chronic) DNR (do not resuscitate) Do not resuscitate status Palliative care encounter Encounter for palliative care Neoplasm related pain Neoplasm related pain (acute) (chronic) Endometrial cancer (HCC) Malignant neoplasm of corpus uteri, except isthmus documented in this encounter Advance Directives * [...] Power of Attor osmani? No Care Teams Deputy Commissioner Relationship Specialty Start Date End Date Ila Fung DO [address] [place] [address] PCP - General Family Medicine 10/10/16 documented as of this encounter
--- OUTSIDE RECORDS SUMMARY | 2025-02-04 02:42 | External Medical Summary | Summary of Care ---
Author Name Unknown Organization [facility] Address [address] [facility] [place] [address] Phone [phone] Care Team Providers Care Bird Sitter Name Role Phone Ila Fung DO Primary Care Provider [phone] Reason for Visit * Reason Onset Date Comments Precert Pending 08/31/2024 Stacy Encounter Details Date Type Department Care Team (Late st Contact Info) Description 08/31/2024 Telephone Hematology/Oncology Treatment, [place] [address] [place] [address] Nils Reid MD [address] [facility] [place] [address] Precert Pending (Stacy) Allergies No known active allergiesdocumented as of [...] with diabetic peripheral neuropathy Atherosclerosis of [place] ar brandon of right lower extremity with [...] mRNA, LNP-s, No Pre serve, 2-Dose Series (Ketsu) 01/31/2022,07/26/2021,01/13/2021,12/23 Pneumococcal Polysaccharide PPV23 (Pneumovax) 10/08/2022 Season [...] Grissom OSA - 08/31/2024 4:16 PM EST [facility] Authorization Submission Submission Information: Medication: ONDANSETRON HCL 8 MG TABLET Portal used: [facility] Insurance: [facility] Authorization #/Maxwell: [id number] Thank you, Stacy Grissom Medication Iron Piler III 08/31/2024, 4:16 PM * Telephone Encounter [...] Dr Nils Reid Comments: Received fax from [facility] that zofran requires prior auth. documented in this encounter Plan of Treatment Upcoming Encounters Date Type Department Care Team (Late st Contact Info) Description 09/06/2024 10:40 AM EST Laboratory Laboratory [facility] [address] [place] [phone] [place], Lab Scenery [address] [place] [address] 09/06/2024 11:45 AM EST Hem/Onc Treatment Hematology/Oncology Treatment, [place] [address] [place] [phone] 11/24/2024 1:00 PM EST Office Visit Gynecology/Oncology, [place] [address] [place], [place] [phone] Mauricio Ramirez PA-C [address] [place] [address] Scheduled Procedures Name Priority Associated Diagnoses Date/Ti [...] Additional history exists CKD PHOS USE SMARTSET 23880 03/23/202502/25, 04/07/2023, 03/27/2022, Additional history exists CKD HGB USE SMARTSET 43576 08/31/202508/31, 08/31/2024, 07/15/2024, Additional history exists HPV [...] this encounter Medical Devices Implanted Type Area Switch Technician Device Identifier Shelf Expiration Date Model / Serial / Lot Stent Assurant [id number] - [id number] Implanted:Qty: 1 on 06/24/2017 by Oliverio Singh MD at [place] [facility] [place] Right: Iliac MED[employer] : VASCULAR 11/22/2017 [id number] / / [id number] Lens Intraoc 17.0 - [id number] - [id number] Implanted:Qty: 1 on 04/13/2021 by Jaret Trotter MD at OR [facility] Left: Eye BAUSCH & LOMB 09/25/2025 [id number] / [id number] / [id number] Lens Intraoc 17.0 - [id number] - [id number] Implanted:Qty: 1 on 05/01/2021 by Jaret Trotter MD at OR [facility] Right: Eye BAUSCH & LOMB 11/26/2025 [id number] / [id number] / [id number] documented as of this encounter Advance Directives [...] Power of Attor osmani? No Care Teams Bird Sitter Relationship Specialty Start Date End Date Ila Fung DO [address] [facility] [place] [address] PCP - General Family Medicine 10/10/16 documented as of this encounter
--- OUTSIDE RECORDS SUMMARY | 2025-02-04 02:42 | External Medical Summary | Summary of Care ---
Author Name Unknown Organization [facility] Address [address] [facility] [place] [address] Phone [phone] Care Team Providers Care Race And Sports Book Writer Name Role Phone Ila Fung DO Primary Care Provider [phone] Reason for Visit * Reason Onset Date Comments Medication Refill 10/02/2024 Encounter Details Date Type Department Care Team (Late st Contact Info) Description 10/02/2024 Telephone Palliative Medicine [facility] [address] [place] [address] Marsha Lowe MD [address] [place] [address] Medication Refill Allergies No known active allergiesdocumented as of this encounter (statuses as of 10/07/2024) Medications ASPIRIN 81 MG PO TABS Take [...] as of this encounter (statuses as of 10/07/2024) Active Problems Problem Noted Date Diagnosed Date [...] as of this encounter (statuses as of 10/07/2024) Resolved Problems Problem Noted Date Diagnosed Date [...] as of this encounter (statuses as of 10/07/2024) Immunizations Name Administration Dates Next Due COVID-19 mRNA, LNP-s, No Pre serve, 2-Dose Series (Cookstr) 01/31/2022,07/26/2021,01/13/2021,12/23 Pneumococcal Polysaccharide PPV23 (Pneumovax) 10/08/2022 Season [...] file Not on file Not on file early childhood educator aide Not on file Not on file Not on maricruz e documented as of this encounter Miscellaneous Notes * Telephone Encounter - Rosalba Cooper OSA - 10/07/2024 3:08 PM EST Patient has been notified of the message. Patient has been scheduled. documented in this encounter Plan of Treatment Upcoming Encounters Date Type Department Care Team (Late st Contact Info) Description 11/03/2024 9:30 AM EST Office Visit Palliative Medicine [facility] [address] [place] [phone] Marsha Lowe MD [address] [place] [address] 11/24/2024 1:00 PM EST Office Visit Gynecology/Oncology, [place] [address] [place] [address] Mauricio Ramirez PA-C [address] [place] [address] 12/29/2024 2:00 PM EST Office Visit Hematology/Oncology [facility] [address] [place] [address] Nils Reid MD [address] [place] [address] Scheduled Procedures Name Priority Associated Diagnoses Date/Ti [...] Additional history exists CKD PHOS USE SMARTSET 66110 03/23/202502/25, 04/07/2023, 03/27/2022, Additional history exists CKD HGB USE SMARTSET 61272 08/31/202508/31, 08/31/2024, 07/15/2024, Additional history exists HPV [...] this encounter Medical Devices Implanted Type Area Fishing Captain Device Identifier Shelf Expiration Date Model / Serial / Lot Stent Assurant [id number] - [id number] Implanted:Qty: 1 on 06/24/2017 [place] Oliverio Singh [place] [facility] [place]: Iliac MED[employer] : VASCULAR 11/22/2017 [id number] / / [id number] Lens Intraoc 17.0 - [id number] - [id number] Implanted:Qty: 1 on 04/13/2021 by Jaret Trotter MD at OR [facility] Left: Eye BAUSCH & LOMB 09/25/2025 [id number] / [id number] / [id number] Lens Intraoc 17.0 - [id number] - [id number] Implanted:Qty: 1 on 05/01/2021 by Jaret Trotter MD at OR [facility] Right: Eye BAUSCH & LOMB 11/26/2025 [id number] / [id number] / [id number] documented as of this encounter Visit Diagnoses Diagnosis Cancer related pain Neoplasm related pain (acute) (chronic) documented in this encounter Advance Directives Documents on File Type Date Recorded Patient Steel Die Engraver Beata osborne POL 09/09/2024 signed on 09/08 * Full [...] Power of Attor osmani? No Care Teams Race And Sports Book Writer Relationship Specialty Start Date End Date Ila Fung DO [address] [place] [address] PCP - General Family Medicine 10/10/16 documented as of this encounter
--- OUTSIDE RECORDS SUMMARY | 2025-02-04 02:42 | External Medical Summary | Summary of Care ---
Author Name Unknown Organization [facility] Address [address] [place] [facility] [place] [address] Phone [phone] Care Team Providers Care Toddler Caregiver Name Role Phone Ila Fung DO Primary Care Provider [phone] Reason for Visit * Reason Onset Date Comments Medication Refill 10/02/2024 Encounter Details Date Type Department Care Team (Late st Contact Info) Description 10/02/2024 Telephone Palliative Medicine [facility] [address] [place] [address] Marsha Lowe MD [address] [place] [address] Medication Refill Allergies No known [...] 2 with diabetic peripheral neuropathy Atherosclerosis of quechan ar brandon of right lower extremity with [...] mRNA, LNP-s, No Pre serve, 2-Dose Series (Applause) 01/31/2022,07/26/2021,01/13/2021,12/23 Pneumococcal Polysaccharide PPV23 (Pneumovax) 10/08/2022 Season [...] 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 Not on file Not on maricruz e documented as of this encounter Miscellaneous Notes * Addendum Note - Alison Guidry LPN - 10/08/2024 7:41 AM ESTAddended by: ALISON GUIDRY on: 10/08/2024 07:41 AM Modules accepted: Orders * Telephone Encounter - Alison Guidry LPN - 10/08/2024 7:41 AM EST Pt scheduled for 11/03 at [facility] Oxycodone not in PDMP Will have to [...] 9:30 AM EST Office Visit Palliative Medicine [facility] [address] [place] [address] Marsha Lowe MD [address] [place] [address] 11/24/2024 1:00 PM EST Office Visit Gynecology/Oncology, [place] [address] [place] [address] Mauricio Ramirez PA-C [address] [place] [address] 12/29/2024 2:00 PM EST Office Visit Hematology/Oncology [address] [place] [address] Nils Reid MD [address] [place] [address] [place] [address] Scheduled Procedures Name Priority Associated Diagnoses Date/Ti [...] Additional history exists CKD PHOS USE SMARTSET 48878 03/23/202502/25, 04/07/2023, 03/27/2022, Additional history exists CKD HGB USE SMARTSET 43313 08/31/202508/31, 08/31/2024, 07/15/2024, Additional history exists HPV [...] this encounter Medical Devices Implanted Type Area Window Decorator Device Identifier Shelf Expiration Date Model / Serial / Lot Stent Assurant [id number] - [id number] Implanted:Qty: 1 on 06/24/2017 by Oliverio Singh MD [place] [facility] Right: Iliac MEDTRONIC : VASCULAR 11/22/2017 [id number] / / [id number] Lens Intraoc 17.0 - [id number] - [id number] Implanted:Qty: 1 on 04/13/2021 by Jaret Trotter MD at OR [facility] Left: Eye BAUSCH & LOMB 09/25/2025 [id number] / [id number] / [id number] Lens Intraoc 17.0 - [id number] - [id number] Implanted:Qty: 1 on 05/01/2021 by Jaret Trotter MD at OR [facility] Right: Eye BAUSCH & LOMB 11/26/2025 [id number] / [id number] / [id number] documented as of this encounter Visit Diagnoses Diagnosis Cancer related pain Neoplasm related pain (acute) (chronic) documented in this encounter Advance Directives Documents on File Type Date Recorded Patient Mine Equipment Design Engineer Beata ROCHE 09/09/2024 signed on 09/08 * Full Code [...] Power of Attor osmani? No Care Teams Toddler Caregiver Relationship Specialty Start Date End Date Ila Fung DO [address] [place] [address] PCP - General Family Medicine 10/10/16 documented as of this encounter
--- OUTSIDE RECORDS SUMMARY | 2025-02-04 02:42 | External Medical Summary | Summary of Care ---
Author Name Unknown Organization [facility] Address [address] [place] [facility] [place] [place] [address] Phone [phone] Care Team Providers Care Building Trades Instructor Name Role Phone Ila Fung DO Primary Care Provider Encounter Details Date Type Department Care Team (Late st Contact Info) Description 08/27/2024 Orders Only Hematology/Oncology Treatment, [place] [address] [place] [address] Nils Reid MD [address] [place] [address] Allergies No known active allergiesdocumented as of this encounter (statuses as of 09/01/2024) Medications Medication Sig Dispensed Refills Start Date [...] NEEDED FOR ANXIETY 15 Tablet 08/30/2024 Active documented as of this encounter (statuses as of 09/01/2024) Active Problems Problem Noted Date Diagnosed Date [...] 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 of right lower extremity with intermittent claudication 06/20/2017 Former smoker 06/20/2017 HTN, goal below 140/90 02/15/2015 Alcohol dependence in remission 06/15/2013 Hyperlipidemia with target LDL less than 100 Overview: ICD-10 update of inactive term Type 2 diabetes, HbA1C goal < 8% documented as of this encounter (statuses as of 09/01/2024) Resolved Problems Problem Noted Date Diagnosed Date [...] 02/16/20 15 Urinary incontinence 09/15/2012 04 015 Overview: ICD-10 update of inactive term [...] as of this encounter (statuses as of 09/01/2024) Immunizations Name Administration Dates Next Due COVID-19 mRNA, LNP-s, No Pre serve, 2-Dose Series (Agilvax) 01/31/2022,07/26/2021,01/13/2021,12/23 Pneumococcal Polysaccharide PPV23 (Pneumovax) 10/08/2022 Season [...] on file documented as of this encounter Plan of Treatment Upcoming Encounters Date Type Department Care Team (Latest Contact Info) Description 09/03/2024 11:30 AM EST Hospital Encounter [facility], Operating Room, [facility] - 4th Floor [address] [place] [phone] Onofre Mix MD [address] [place] [address] 09/03/2024 11:30 AM EST - 09/03/2024 12:24 PM EST Surgery [facility], Operating Room, [facility] - 4th Floor [address] [place] [phone] Onofre Mix MD [address] [place] [address] INSERT TUNNELED CENTRAL VENOUS ACCESS WITH SUBQ PORT 09/06/2024 10:40 AM EST Laboratory Laboratory [facility] [address] [place] [address] [place], Lab [facility]enery [address] [place] [address] 09/06/2024 11:45 AM EST Hem/Onc Treatment Hematology/Oncolog y Treatment, [place] [address] [place] [address] 11/24/2024 1:00 PM EST Office Visit Gynecology/Oncolog y, [place] [address] [place] [address] Mauricio Ramirez PA-C [address] [place] [phone] Scheduled Procedures Name Priority Associated Diagnoses Date/Ti me INSERT TUNNELED CENTRAL VENOUS ACCESS WITH SUBQ PORT Endometrial cancer (HCC) 09/03/2024 11:30 AM EST COLONOSCOPY FLEXIBLE PROXIMAL DIAGNOSTIC Recall Special screening for malignant neoplasms, [...] Additional history exists CKD PHOS USE SMARTSET 60579 03/23/202502/25, 04/07/2023, 03/27/2022, Additional history exists CKD HGB USE SMARTSET 67672 08/31/202508/31, 08/31/2024, 07/15/2024, Additional history exists HPV [...] this encounter Medical Devices Implanted Type Area Retail Field Merchandiser Device Identifier Shelf Expiration Date Model / Serial / Lot Stent Assurant [id number] - [id number] Implanted:Qty: 1 on 06/24/2017 by Oliverio Singh MD at [place] [facility] [place] Right: Iliac MEDTRONIC : VASCULAR 11/22/2017 [id number] / / [id number] Lens Intraoc 17.0 - [id number] - [id number] Implanted:Qty: 1 on 04/13/2021 by Jaret Trotter MD at OR [facility] Left: Eye BAUSCH & LOMB 09/25/2025 [id number] / [id number] / [id number] Lens Intraoc 17.0 - [id number] - [id number] Implanted:Qty: 1 on 05/01/2021 by Jaret Trotter MD at OR [facility] Right: Eye BAUSCH & LOMB 11/26/2025 [id number] / [id number] / [id number] documented as of this encounter Advance Directives [...] Power of Attor osmani? No Care Teams Building Trades Instructor Relationship Specialty Start Date End Date Ila Fung DO [address] [place] [address] PCP - General Family Medicine 10/10/16 documented as of this encounter
--- OUTSIDE RECORDS SUMMARY | 2025-02-04 02:42 | External Medical Summary | Summary of Care ---
Author Name Unknown Organization [facility] Address [address] [place] [place] [address] Phone [phone] Care Team Providers Care Heating And Blending Supervisor Name Role Phone Ila Fung DO Primary Care Provider [phone] Reason for Visit * Reason Onset Date Comments Medication Refill 10/02/2024 Encounter Details Date Type Department Care Team (Late st Contact Info) Description 10/02/[address] 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 Not on file Not on file Not on maricruz e documented as of this encounter Plan of Treatment Upcoming Encounters Date Type Department Care Team (Late st Contact Info) Description 11/24/2024 1:00 PM EST Office Visit Gynecology/Oncology, [address] [address] Mauricio Ramirez PA-C [address] [facility] [address] [place] [address] 12/29/2024 2:00 PM EST Office Visit Hematology/Oncology [place] [address] [facility] [place] [phone] Nils Reid MD [address] [facility] [place] [address] Scheduled Procedures Name Priority Associated Diagnoses Date/Ti [...] Additional history exists CKD PHOS USE SMARTSET 93124 03/23/202502/25, 04/07/2023, 03/27/2022, Additional history exists CKD HGB USE SMARTSET 27706 08/31/202508/31, 08/31/2024, 07/15/2024, Additional history exists HPV [...] this encounter Medical Devices Implanted Type Area Industrial Laborer Device Identifier Shelf Expiration Date Model / Serial / Lot Stent Assurant [id number] - [id number] Implanted:Qty: 1 on 06/24/2017 by Oliverio Singh MD at OR [facility] [place] Right: Iliac MEDTRONIC : VASCULAR 11/22/2017 [id number] / / [id number] Lens Intraoc 17.0 - [id number] - [id number] Implanted:Qty: 1 on 04/13/2021 by Jaret Trotter MD at OR [facility] Left: Eye BAUSCH & LOMB 09/25/2025 [id number] / [id number] / [id number] Lens Intraoc 17.0 - [id number] - [id number] Implanted:Qty: 1 on 05/01/2021 by Jaret Trotter MD at OR [facility] Right: Eye BAUSCH & LOMB 11/26/2025 [id number] / [id number] / [id number] documented as of this encounter Visit Diagnoses Diagnosis Cancer related pain Neoplasm related pain (acute) (chronic) documented in this encounter Advance Directives Documents on File Type Date Recorded Patient Commissions Manager Expl anation POL 09/09/2024 signed on 09/08 * Full [...] Power of Attor osmani? No Care Teams Heating And Blending Supervisor Relationship Specialty Start Date End Date Ila Fung DO [address] [place] [address] PCP - General Family Medicine 10/10/16 documented as of this encounter
--- OUTSIDE RECORDS SUMMARY | 2025-02-04 02:42 | External Medical Summary | Summary of Care ---
Author Name Unknown Organization [facility] Address [address] [place] [address] Phone [phone] Care Team Providers Care Photographic Restorer Name Role Phone Ila Fung DO Primary Care Provider Reason for Visit * Reason Onset Date Comments Imaging Records Request 09/02/2024 Breast Imaging Records Request 09/02/2024 Encounter Details Date Type Department Care Team (Late st Contact Info) Description 09/02/2024 Telephone Family Practice [facility] [address] [place] [address] Support, Imaging Radiology [address] [place] [address] Imaging Records Request; Breast Imaging Re... Allergies No known active allergiesdocumented as of [...] 2 with diabetic peripheral neuropathy Atherosclerosis of hug[place] ar brandon of right lower extremity with [...] mRNA, LNP-s, No Pre serve, 2-Dose Series ([email or web address]) 01/31/2022,07/26/2021,01/13/2021,12/23 Pneumococcal Polysaccharide PPV23 (Pneumovax) 10/08/2022 Season [...] encounter Miscellaneous Notes * Telephone Encounter - Alo Pardo OSA - 09/02/2024 1:25 PM EST [facility] Rad/Onc Department requesting .6.24 Mammogram and Breast US be pushed to their [employer] System. .Images pushed to [facility] The [employer] Image account Job ID: [id number] Brogan Authorization to Release form on file. documented in this encounter Plan of Treatment Upcoming Encounters Date Type Department Care Team (Late st Contact Info) Description 11/24/2024 1:00 PM EST Office Visit Gynecology/Oncology, [place] [address] [place] [address] Mauricio Ramirez PA-C [address] [place] [phone] 12/29/2024 2:00 PM EST Office Visit Hematology/Oncology [facility] [place] [address] [place] [address] Nils Reid MD [address] [place] [address] Scheduled Procedures Name Priority Associated Diagnoses Date/Ti [...] Additional history exists CKD PHOS USE SMARTSET 30101 03/23/202502/25, 04/07/2023, 03/27/2022, Additional history exists CKD HGB USE SMARTSET 30318 08/31/202508/31, 08/31/2024, 07/15/2024, Additional history exists HPV [...] this encounter Medical Devices Implanted Type Area An/Syq 13 Nav/C2 Operator Device Identifier Shelf Expiration Date Model / Serial / Lot Stent Assurant [id number] - [id number] Implanted:Qty: 1 on 06/24/2017 by Oliverio Singh MD at [place] [facility] [place] Right: Iliac MEDTRONIC : VASCULAR 11/22/2017 [id number] / / [id number] Lens Intraoc 17.0 - [id number] - [id number] Implanted:Qty: 1 on 04/13/2021 by Jaret Trotter MD at OR [facility] Left: Eye BAUSCH & LOMB 09/25/2025 [id number] / [id number] / [id number] Lens Intraoc 17.0 - [id number] - [id number] Implanted:Qty: 1 on 05/01/2021 by Jaret Trotter MD at OR [facility] Right: Eye BAUSCH & LOMB 11/26/2025 [id number] / [id number] / [id number] documented as of this encounter Advance Directives [...] Power of Attor osmani? No Care Teams Photographic Restorer Relationship Specialty Start Date End Date Ila Fung DO [address] [place] [address] PCP - General Family Medicine 10/10/16 documented as of this encounter
--- OUTSIDE RECORDS SUMMARY | 2025-02-04 02:42 | External Medical Summary | Summary of Care ---
Author Name Unknown Organization [facility] Address [address] [facility] [place] [place] [address] Phone [phone] Care Team Providers Care Food Equipment Service Technician Name Role Phone Ila Fung DO Primary Care Provider Reason for Visit * Reason Onset Date Comments Scheduling 09/02/2024 Encounter Details Date Type Department Care Team (Late st Contact Info) Description 09/02/2024 Telephone Hematology/Oncology [facility] [address] [facility] [place] [address] Nils Reid MD 200 [facility] [address] [place] [address] Scheduling Allergies No known active allergiesdocumented as of [...] 2 with diabetic peripheral neuropathy Atherosclerosis of [place] ar brandon of right lower extremity with [...] mRNA, LNP-s, No Pre serve, 2-Dose Series (pSivida) 01/31/2022,07/26/2021,01/13/2021,12/23 Pneumococcal Polysaccharide PPV23 (Pneumovax) 10/08/2022 Season [...] encounter Miscellaneous Notes * Telephone Encounter - Dorothea Orozco OSA - 09/02/2024 7:32 AM EST Received a message that the patient does not want the Mediport Insertion for 09/03 procedure was canceled documented in this encounter Plan of Treatment Upcoming Encounters Date Type Department Care Team (Late st Contact Info) Description 09/06/2024 10:40 AM EST Laboratory Laboratory [facility] 200 [facility] [place] [address] [place] [address] 09/06/2024 11:45 AM EST Hem/Onc Treatment Hematology/Oncology Treatment, [place] [address] [place] [address] 11/24/2024 1:00 PM EST Office Visit Gynecology/Oncology, [place] [address] [place] [address] Mauricio Ramirez PA-C [address] [place] [address] Scheduled Procedures Name Priority Associated [...] Additional history exists CKD PHOS USE SMARTSET 64436 03/23/202502/25, 04/07/2023, 03/27/2022, Additional history exists CKD HGB USE SMARTSET 86357 08/31/202508/31, 08/31/2024, 07/15/2024, Additional history exists HPV [...] this encounter Medical Devices Implanted Type Area Green Hide Inspector Device Identifier Shelf Expiration Date Model / Serial / Lot Stent Assurant [id number] - [id number] Implanted:Qty: 1 on 06/24/2017 by Oliverio Singh MD at [place] [facility] [place] Right: Iliac MEDTRONIC : VASCULAR 11/22/2017 [id number] / / [id number] Lens Intraoc 17.0 - [id number] - [id number] Implanted:Qty: 1 on 04/13/2021 by Jaret Trotter MD at OR [facility] Left: Eye BAUSCH & LOMB 09/25/2025 [id number] / [id number] / [id number] Lens Intraoc 17.0 - [id number] - [id number] Implanted:Qty: 1 on 05/01/2021 by Jaret Trotter MD at OR [facility] Right: Eye BAUSCH & LOMB 11/26/2025 [id number] / [id number] / [id number] documented as of this encounter Advance Directives [...] Power of Attor osmani? No Care Teams Food Equipment Service Technician Relationship Specialty Start Date End Date Ila Fung DO [address] [place] [address] PCP - General Family Medicine 10/10/16 documented as of this encounter
--- OUTSIDE RECORDS SUMMARY | 2025-02-04 02:43 | External Medical Summary | Summary of Care ---
Author Name Unknown Organization [facility] Address [address] [facility] [place] [address] Phone [phone] Care Team Providers Care Long Term Care Phlebotomist Name Role Phone Ila Fung DO Primary Care Provider Reason for Visit * Reason Onset Date Comments Medication Refill 08/31/2024 Encounter Details Date Type Department Care Team (Late st Contact Info) Description 08/31/2024 Refill Hematology/Oncology Treatment, [place] [address] [facility] [place] [phone] Nils Reid MD 200 [place] [address] Endometrial cancer (HCC)* Allergies No known active allergiesdocumented as of this encounter (statuses as of 08/31/2024) Medications Medication Sig Dispensed Refills Start Date [...] as of this encounter (statuses as of 08/31/2024) Active Problems Problem Noted Date Diagnosed Date [...] 2 with diabetic peripheral neuropathy Atherosclerosis of [place] ar brandon of right lower extremity with intermittent claudication 06/20/2017 Former smoker 06/20/2017 HTN, goal below 140/90 02/15/2015 Alcohol dependence in remission 06/15/2013 Hyperlipidemia with target LDL less than 100 Overview: ICD-10 update of inactive term Type 2 diabetes, HbA1C goal < 8% documented as of this encounter (statuses as of 08/31/2024) Resolved Problems Problem Noted Date Diagnosed Date [...] as of this encounter (statuses as of 08/31/2024) Immunizations Name Administration Dates Next Due COVID-19 mRNA, LNP-s, No Pre serve, 2-Dose Series ([employer]) 01/31/2022,07/26/2021,01/13/2021,12/23 Pneumococcal Polysaccharide PPV23 (Pneumovax) 10/08/2022 Season [...] encounter Miscellaneous Notes * Telephone Encounter - Nils Reid MD - 08/31/2024 10:56 AM EST E-prescribed Nils Reid MD Hem/Onc * Addendum Note - Jose Park RN - 08/31/2024 10:48 AM ESTAddended by: JOSE PARK on: 08/31/2024 10:48 AM Modules accepted: Orders * Telephone Encounter - Jose Park RN - 08/31/2024 10:47 AM EST Pended EMLA. * Telephone Encounter - Nils Reid MD - 08/31/2024 10:44 AM EST E-prescribed Nils Reid MD Hem/Onc * Telephone Encounter - Jose Park RN - 08/31/2024 10:13 AM EST Pended zofran, compazine, decadron, claritin documented in this encounter Plan of Treatment Upcoming Encounters Date Type Department Care Team (Latest Contact Info) Description 08/31/2024 12:00 PM EST Laboratory Laboratory, [facility] [address] [facility] [place] [address] [facility] [address] [place] [address] 09/03/2024 11:30 AM EST Hospital Encounter OR [facility], Operating Room, [facility] - 4th Floor [address] [place] [address] Onofre Mix MD [address] [place] [address] 09/03/2024 11:30 AM EST - 09/03/2024 12:24 PM EST Surgery OR [facility], Operating Room, [facility] - 4th Floor [address] [place] [address] Onofre Mix MD [address] [place] [address] INSERT TUNNELED CENTRAL VENOUS ACCESS WITH SUBQ PORT 11/24/2024 1:00 PM EST Office Visit [place]necology[place] [address] [place] [address] Mauricio Ramirez PA-C [address] [place] [address] Scheduled Procedures Name Priority Associated Diagnoses Date/Ti [...] 03/23/2024, 03/27, 10/08/2022, Additional history exists GFR 01/12/2025 07/15/2024, 05/27, 03/23/2024, Additional history exists B-12 03/23/2025 03/23/2024, 03/27, 03/27/2022, Additional history exists CKD PHOS USE SMARTSET 00582 03/23/202502/25, 04/07/2023, 03/27/2022, Additional history exists CKD HGB USE SMARTSET 05961 07/15/202507/15, 06/14/2024, 06/14/2024, Additional history exists HPV (Gardasil) Vaccine Aged Out No lo nger eligible based on patient's age to complete this topic Hepatitis B Vaccine Aged Out No longe r eligible based on patient's age to complete this topic MENINGOCOCCAL (MENACTRA/MENVEO) Aged Out No longer eligible based on patient's age to complete this topic documented as of this encounter Medical Devices Implanted Type Area Creative Strategist Device Identifier Shelf Expiration Date Model / Serial / Lot Stent Assurant [id number] - [id number] Implanted:Qty: 1 on 06/24/2017 by Oliverio Singh MD at OR [facility] [place] Right: Iliac MEDTRONIC : VASCULAR 11/22/2017 [id number] / / [id number] Lens Intraoc 17.0 - [id number] - [id number] Implanted:Qty: 1 on 04/13/2021 by Jaret Trotter MD at OR [facility] Left: Eye BAUSCH & LOMB 09/25/2025 [id number] / [id number] / [id number] Lens Intraoc 17.0 - [id number] - [id number] Implanted:Qty: 1 on 05/01/2021 by Jaret Trotter MD at OR [facility] Right: Eye BAUSCH & LOMB 11/26/2025 [id number] / [id number] / [id number] documented as of this encounter Visit Diagnoses Diagnosis Endometrial cancer (HCC)- Primary Malignant neoplasm of corpus uteri, except isthmus Endometrial cancer (HCC) Malignant neoplasm of corpus [...] Power of Attor osmani? No Care Teams Long Term Care Phlebotomist Relationship Specialty Start Date End Date Ila Fung DO [address] [place] [address] PCP - General Family Medicine 10/10/16 documented as of this encounter
--- OUTSIDE RECORDS SUMMARY | 2025-02-04 02:43 | External Medical Summary | Summary of Care ---
Author Name Unknown Organization [facility] Address [address] [facility] [place] [address] Phone [phone] Care Team Providers Care Renal Medicine Physician Name Role Phone Ila Fung DO Primary Care Provider Reason for Visit * Reason Onset Date Comments Precert Future 08/27/2024 Carbo/ taxol/ fu lphila Encounter Details Date Type Department Care Team (Late st Contact Info) Description 08/27/2024 Telephone Hematology/Oncology Treatment, [place] [address] [place] [address] Nils Reid MD [address] [place] [address] Precert Future (Carbo/ taxol/ fulphila) Allergies No known active allergiesdocumented as of [...] 07/21/2024 Active ALPRAZolam 0.5 MG Oral Tablet (xaNAX)Indicatio ns:Insomnia TAKE 1 TABLET BY MOUTH ONCE DAILY AT BEDTIME NEEDED FOR ANXIETY 15 Tablet 07/23/2024 4 Discontinued documented as of this encounter (statuses [...] 2 with diabetic peripheral neuropathy Atherosclerosis of [place] ar brandon of right lower extremity with [...] mRNA, LNP-s, No Pre serve, 2-Dose Series ([employer]) 01/31/2022,07/26/2021,01/13/2021,12/23 Pneumococcal Polysaccharide PPV23 (Pneumovax) 10/08/2022 Season [...] encounter Miscellaneous Notes * Telephone Encounter - Anusha Pereira OSA - 08/31/2024 11:09 AM EST Apts scheduled * Telephone Encounter - Jose Park RN - 08/31/2024 10:51 AM EST Education complete. Lab called to draw labs, Dr Reid in to sign consent. Scheduling: - please cancel lab appt at today - please reschedule mammogram (patient accidentally cancelled it) Please schedule patient for after 09/03/24 - labs "CBCd, CMP" - 5 hour appt "C1D1 carbo/ taxol, fulphila day 2" ([place]) - patient cannot get treatment on a Friday as she will need to return the next day for fulphila injection Thanks! * Telephone Encounter - Jose Park RN - 08/30/2024 7:50 AM EST Referral entered. * Addendum Note - Jose Park RN - 08/27/2024 2:03 PM EDTAddended by: JOSE PARK on: 08/27/2024 02:03 PM Modules accepted: Orders * Telephone Encounter - Jose Park RN - 08/27/2024 1:47 PM EDT Order received for carbo/ taxol/ fulphila. [place] plan built. Waiting for auth. Nurse education 08/31/24 *Patient will need to meet with Dr Reid as well for consent* Patient will need hep B labs/ prescriptions sent after education visit. Port placement 09/03/24 documented in this encounter Plan of Treatment Upcoming Encounters Date Type Department Care Team (Latest Contact Info) Description 09/01/2024 1:00 PM EST Imaging Radiology [address], [address] [place] [address] 09/03/2024 11:30 AM EST Hospital Encounter OR [facility], Operating Room, [facility] - 4th Floor [address] [place] [address] Onofre Mix MD [address] [place] [address] 09/03/2024 11:30 AM EST - 09/03/2024 12:24 PM EST Surgery OR [facility], Operating Room, [facility] - 4th Floor [address] [place] [phone] Onofre Mix MD [address] [place] [address] INSERT TUNNELED CENTRAL VENOUS ACCESS WITH SUBQ PORT 09/06/2024 10:40 AM EST Laboratory Laboratory Scenery [place]ia [place] [address] [place] [address] [place], Lab Scenery [address] [place] [address] 09/06/2024 11:45 AM EST Hem/Onc Treatment Hematology/Oncolog y Treatment, [place] [address] [place] [phone] 11/24/2024 1:00 PM EST Office Visit Gynecology/Oncolog y, [place] [address] [place] [address] Mauricio Ramirez PA-C [address] [place] [phone] Pending Results Name Type Priority Associated Diagnoses Date /Time HEPATITIS B SURFACE ANTIBODY Lab STAT Endometrial cancer (HCC) 08/31/2024 11:05 AM EST HEPATITIS B SURFACE ANTIGEN Lab STAT Endometrial cancer (HCC) 08/31/2024 11:05 AM EST HEPATITIS B CORE ANTIBODIES IGG AND IGM Lab STAT Endometrial cancer (HCC) 08/31/2024 11:05 AM EST CBC WITH WBC DIFFERENTIAL Lab STAT Endometrial cancer (HCC) 08/31/2024 11:05 AM EST COMPREHENSIVE METABOLIC PANEL Lab STAT Endometrial cancer (HCC) 08/31/2024 11:05 AM EST Scheduled Orders Name Type Priority Associated Diagnoses Orde r Schedule HEPATITIS B SURFACE ANTIBODY Lab STAT Endometrial cancer (HCC) Expected: 08/27/2024 (Approximate), Expires: 08/27/2025 HEPATITIS B SURFACE ANTIGEN Lab STAT Endometrial cancer (HCC) Expected: 08/27/2024 (Approximate), Expires: 08/27/2025 HEPATITIS B CORE ANTIBODIES IGG AND IGM Lab STAT Endometrial cancer (HCC) Expected: 08/27/2024 (Approximate), Expires: 08/27/2025 CBC WITH WBC DIFFERENTIAL Lab STAT Endometrial cancer (HCC) Every 3 Weeks for 17 Occurrences starting 08/27/2024 until 08/27/2025 COMPREHENSIVE METABOLIC PANEL Lab STAT Endometrial cancer (HCC) Every 3 Weeks for 17 Occurrences starting 08/27/2024 until 08/27/2025 Scheduled Procedures Name Priority Associated Diagnoses Date/Ti [...] Additional history exists CKD PHOS USE SMARTSET 03092 03/23/202502/25, 04/07/2023, 03/27/2022, Additional history exists CKD HGB USE SMARTSET 74452 07/15/202507/15, 06/14/2024, 06/14/2024, Additional history exists HPV [...] this encounter Medical Devices Implanted Type Area Associate Marketing Manager Device Identifier Shelf Expiration Date Model / Serial / Lot Stent Assurant [id number] - [id number] Implanted:Qty: 1 on 06/24/2017 by Olievrio Singh MD at [place] [facility] [place] Right: Iliac MEDTRONIC : VASCULAR 11/22/2017 [id number] / / [id number] Lens Intraoc 17.0 - [id number] - [id number] Implanted:Qty: 1 on 04/13/2021 by Jaret Trotter MD at OR [facility] Left: Eye BAUSCH & LOMB 09/25/2025 [id number] / [id number] / [id number] Lens Intraoc 17.0 - [id number] - [id number] Implanted:Qty: 1 on 05/01/2021 by Jaret Trotter MD at OR [facility] Right: Eye BAUSCH & LOMB 11/26/2025 [id number] / [id number] / [id number] documented as of this encounter Visit Diagnoses [...] Power of Attor osmani? No Care Teams Renal Medicine Physician Relationship Specialty Start Date End Date Ila Fung DO [address] [facility] [place] [address] PCP - General Family Medicine 10/10/16 documented as of this encounter
--- OUTSIDE RECORDS SUMMARY | 2025-02-04 02:43 | External Medical Summary | Summary of Care ---
Author Name Unknown Organization [facility] Address [address] [facility] [place] [address] Phone [phone] Care Team Providers Care Bodywork Therapist Name Role Phone Ila Fung DO Primary Care Provider Encounter Details Date Type Department Care Team (Late st Contact Info) Description 08/30/2024 Orders Only PATIENT PORTAL DO NOT DELETE THIS DEPT USED BY [place] [address] Allergies No known active allergiesdocumented as of this encounter (statuses as of 08/30/2024) Medications Medication Sig Dispensed Refills Start Date [...] BEDTIME NEEDED FOR ANXIETY 15 Tablet 07/23/2024 Active documented as of this encounter (statuses as of 08/30/2024) Active Problems Problem Noted Date Diagnosed Date [...] 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 06/20/2017 Former smoker 06/20/2017 HTN, goal below 140/90 02/15/2015 Alcohol dependence in remission 06/15/2013 Hyperlipidemia with target LDL less than 100 Overview: ICD-10 update of inactive term Type 2 diabetes, HbA1C goal < 8% documented as of this encounter (statuses as of 08/30/2024) Resolved Problems Problem Noted Date Diagnosed Date [...] as of this encounter (statuses as of 08/30/2024) Immunizations Name Administration Dates Next Due COVID-19 mRNA, LNP-s, No Pre serve, 2-Dose Series ([employer]) 01/31/2022,07/26/2021,01/13/2021,12/23 Pneumococcal Polysaccharide PPV23 (Pneumovax) 10/08/2022 Season [...] Care Team (Latest Contact Info) Description 08/31/2024 10:15 AM EST Pt Ed by Nurse Hematology/Oncology [facility] [address] [place] [phone] Maia Nurse Hem Onc [place] [address] [place] [address] [address] 09/03/2024 11:30 AM EST Hospital Encounter OR [facility], Operating Room, [facility] - 4th Floor [address] [place] [address] Onofre Mix MD [address] [place] [address] 09/03/2024 11:30 AM EST - 09/03/2024 12:24 PM EST Surgery OR [facility], Operating Room, [facility] - 4th Floor [address] [place] [address] On[facility] Mix MD [address] [facility] [address] INSERT TUNNELED CENTRAL VENOUS ACCESS WITH SUBQ PORT 11/24/2024 1:00 PM EST Office Visit Gynecology/Oncology , [place] [address] [place] [address] Mauricio Ramirez PA-C [address] [place] [address] Scheduled Procedures Name Priority Associated [...] elsewhere), Additional history exists COVID-19 Vaccine ( - season) 2024 01/31/2022, 07/26/2021, 01/13/2021, Additional history exists Influenza Vaccine (FLU shot) (#1) 2024 07/19/2022, 07/04/2021, 08/04/2020, Additional history exists Albumin/Creatinine Ratio 08/26/2024 023, 10/08/2022, 03/11/2017, Additional history exists HbA1c 09/23/2024 03/23/2024, 03/27, 10/08/2022, Additional history exists GFR 01/12/2025 07/15/2024, 05/27, 03/23/2024, Additional history exists B-12 03/23/2025 03/23/2024, 03/27, 03/27/2022, Additional history exists CKD PHOS USE SMARTSET 03904 03/23/202502/25, 04/07/2023, 03/27/2022, Additional history exists CKD HGB USE SMARTSET 30696 07/15/202507/15, 06/14/2024, 06/14/2024, Additional history exists HPV [...] this encounter Medical Devices Implanted Type Area Mental Health Tech Device Identifier Shelf Expiration Date Model / Serial / Lot Stent Assurant [id number] - [id number] Implanted:Qty: 1 on 06/24/2017 by Oliverio Singh [place] [facility] [place]liac MEDTRONIC : VASCULAR 11/22/2017 [id number] / / [id number] Lens Intraoc 17.0 - [id number] - [id number] Implanted:Qty: 1 on 04/13/2021 by Jaret Trotter MD at OR [facility] Left: Eye BAUSCH & LOMB 09/25/2025 [id number] / [id number] / [id number] Lens Intraoc 17.0 - [id number] - [id number] Implanted:Qty: 1 on 05/01/2021 by Jaret Trotter MD at [facility] Right: Eye BAUSCH & LOMB 11/26/2025 [id number] / [id number] / [id number] documented as of this encounter Advance Directives [...] Power of Attor osmani? No Care Teams Bodywork Therapist Relationship Specialty Start Date End Date Ila Fung DO [address] [place] [address] PCP - General Family Medicine 10/10/16 documented as of this encounter
--- OUTSIDE RECORDS SUMMARY | 2025-02-04 02:43 | External Medical Summary | Summary of Care ---
Author Name Unknown Organization [facility] Address [address] [facility] [place] [address] Phone [phone] Care Team Providers Care Tape Recorder Repairer Name Role Phone Leon Ivan DO Primary Care Provider Reason for Visit * Reason Comments eRx-Medication Refill Encounter Details Date Type Department Care Team (Late st Contact Info) Description 08/27/2024 Refill Family Practice [facility] [address] [place] [address] Leon Ivan DO [address] [place] [address] Insomnia Allergies No known active allergiesdocumented as [...] NEEDED FOR ANXIETY 15 Tablet 08/30/2024 Active ALPRAZolam 0.5 MG Oral Tablet (xaNAX)Indicatio ns:Insomnia TAKE 1 TABLET BY MOUTH ONCE DAILY AT BEDTIME NEEDED FOR ANXIETY 15 Tablet 07/23/2024 Discontinued documented as of this encounter (statuses [...] 2 with diabetic peripheral neuropathy Atherosclerosis of [place] ar brandon of right lower extremity with [...] mRNA, LNP-s, No Pre serve, 2-Dose Series ([facility]) 01/31/2022,07/26/2021,01/13/2021,12/23 Pneumococcal Polysaccharide PPV23 (Pneumovax) 10/08/2022 Season [...] Telephone Encounter - Leon Ivan DO - 08/30/2024 11:58 AM ESTSigned Prescriptions: Disp Refills ALPRAZolam 0.5 MG Oral Tablet (xaNAX) 15 Tab*0 Sig: TAKE 1 TABLET BY MOUTH ONCE DAILY AT BEDTIME NEEDED FOR ANXIETY Authorizing Provider: LEON IVAN * Telephone Encounter - Mayelin Acuña [facility] - 08/28/2024 7:21 PM EDT Pending Prescriptions: Disp Refills ALPRAZolam 0.5 MG Oral Tablet 15 Tab*0 Sig: TAKE 1 TABLET BY MOUTH ONCE DAILY AT BEDTIME NEEDED FOR ANXIETY * Telephone Encounter - Mayelin Acuña [facility] - 08/28/2024 7:20 PM EDT I have reviewed the patient’s controlled substance dispensing history in the Prescription Drug Monitoring Program in compliance with the [facility] regulations before prescribing a controlled substance. PDMP checked on 08/28/2024. Pending Prescriptions: Disp Refills ALPRAZolam 0.5 MG Oral Tablet (xaNAX) [Ph*15 Tab*0 Sig: TAKE 1 TABLET BY MOUTH ONCE DAILY AT BEDTIME NEEDED FOR ANXIETY Last Visit: 05/18/2024 (in office), 09/04/2020 (telemedicine) Next Visit: Visit date not found Date medication was last filled: 07/27/24 Date medication is due for refill: 08/10/24 Pharmacy: [facility] [address] Is this request for a controlled substance? Yes and Urine Drug Screen Not completed Toxicology results: No results found for this or any previous visit. Please approve if appropriate. Thank you, Mayelin Acuña, PharmD Clinical Pharmacist [facility] ([facility]) 08/28/24 7:21 PM [phone] documented in this encounter Plan of Treatment Upcoming Encounters Date Type Department Care Team (Latest Contact Info) Description 08/31/2024 10:15 AM EST Pt Ed by Nurse Hematology/Oncology [employer] [address] [place] [address] Maia, Nurse Hem Onc Scenery [address] [place] [address] 09/03/2024 11:30 AM EST Hospital Encounter OR [facility], Operating Room, [facility] - 4th Floor [address] [place] [address] Onofre Mix MD [address] [place] [address] 09/03/2024 11:30 AM EST - 09/03/2024 12:24 PM EST Surgery OR [facility], Operating Room, [facility] - 4th Floor [address] [place] [address] Onofre Mix MD [address] [place] [address] INSERT TUNNELED CENTRAL VENOUS ACCESS WITH SUBQ PORT 11/24/2024 1:00 PM EST Office Visit Gynecology/Oncology , [place] [address] [place] [address] Mauricio Ramirez PA-C [address] [facility] [place] [phone] Scheduled Procedures Name Priority Associated Diagnoses Date/Ti [...] Additional history exists CKD PHOS USE SMARTSET 24770 03/23/202502/25, 04/07/2023, 03/27/2022, Additional history exists CKD HGB USE SMARTSET 21160 07/15/202507/15, 06/14/2024, 06/14/2024, Additional history exists HPV [...] this encounter Medical Devices Implanted Type Area Service Specialist Device Identifier Shelf Expiration Date Model / Serial / Lot Stent Assurant [id number] - [id number] Implanted:Qty: 1 on 06/24/2017 by Oliverio Singh [place] [facility] [place]: Iliac MED[employer]IC : VASCULAR 11/22/2017 [id number] / / [id number] Lens Intraoc 17.0 - [id number] - [id number] Implanted:Qty: 1 on 04/13/2021 by Jaret Trotter MD at OR [facility] Left: Eye BAUSCH & LOMB 09/25/2025 [id number] / [id number] / [id number] Lens Intraoc 17.0 - [id number] - [id number] Implanted:Qty: 1 on 05/01/2021 by Jaret Trotter MD at OR [facility] Right: Eye BAUSCH & LOMB 11/26/2025 [id number] / [id number] / [id number] documented as of this encounter Visit Diagnoses Diagnosis Insomnia Insomnia, unspecified Endometrial cancer (HCC) Malignant neoplasm of corpus [...] patient have Health Care Power of Attor somani? No Care Teams Tape Recorder Repairer Relationship Specialty Start Date End Date Leon Ivan DO [address] [place] [address] [place] [address] PCP - General Family Medicine 10/10/16 documented as of this encounter
--- OUTSIDE RECORDS SUMMARY | 2025-02-04 02:43 | External Medical Summary | Summary of Care ---
Author Name Unknown Organization [facility] Address [address] [facility] [place] [address] Phone [phone] Care Team Providers Care Decker Operator Name Role Phone Ila Fung DO Primary Care Provider Reason for Visit * Reason Onset Date Comments FYI 09/01/2024 Diagnostic imagi ng Encounter Details Date Type Department Care Team (Late st Contact Info) Description 09/01/2024 Telephone Hematology/Oncology [facility] [place] [address] [facility] [place] [phone] Nils Reid MD [address] [facility] [place] [address] FYI (Diagnostic imaging) Allergies No known active allergiesdocumented as of [...] 2 with diabetic peripheral neuropathy Atherosclerosis of [place] of right lower extremity with [...] mRNA, LNP-s, No Pre serve, 2-Dose Series ([employer]) 01/31/2022,07/26/2021,01/13/2021,12/23 Pneumococcal Polysaccharide PPV23 (Pneumovax) 10/08/2022 Season [...] encounter Miscellaneous Notes * Telephone Encounter - Niranjan Lenz RN - 09/01/2024 3:27 PM EST See MyG sent by patient today. * Telephone Encounter - Mimi Rasmussen OSA - 09/01/2024 2:32 PM EST Please be aware patient was in today for a bilateral diagnostic mammogram and breast ultrasound forfollow up of a left upper breast mass found on Chest CT. Dr. Lundberg recommended a left biopsy. She was offered biopsy as early as today. Patient refused biopsy. She left with our direct scheduling number in case she changes her mind. An addendum will be done to the imaging report of the same date to reflect recommendation. See report for details. documented in this encounter Plan of Treatment Upcoming Encounters Date Type Department Care Team (Latest Contact Info) Description 09/03/2024 11:30 AM EST Hospital Encounter [facility], Operating Room, [facility] - 4th Floor [address] [place] [address] Onofre Mix MD [address] [place] [address] 09/03/2024 11:30 AM EST - 09/03/2024 12:24 PM EST Surgery [facility], Operating Room, [facility] - 4th Floor [address] [place] [address] Onofre Mix MD [address] [facility] [address] INSERT TUNNELED CENTRAL VENOUS ACCESS WITH SUBQ PORT 09/06/2024 10:40 AM EST Laboratory Laboratory Scenery [facility] [address] [place] [phone] [place], Lab Scenery [address] [place] [address] 09/06/2024 11:45 AM EST Hem/Onc Treatment Hematology/Oncolog y Treatment, [place] [address] [place] [address] 11/24/2024 1:00 PM EST Office Visit Gynecology/Oncolog y, [place] [address] [place] [address] Mauricio Ramirez PA-C [address] [place] [address] Scheduled Procedures Name Priority Associated Diagnoses Date/Ti [...] Additional history exists CKD PHOS USE SMARTSET 81754 03/23/202502/25, 04/07/2023, 03/27/2022, Additional history exists CKD HGB USE SMARTSET 89081 08/31/202508/31, 08/31/2024, 07/15/2024, Additional history exists HPV [...] this encounter Medical Devices Implanted Type Area Museum Tour Guide Device Identifier Shelf Expiration Date Model / Serial / Lot Stent Assurant [id number] - [id number] Implanted:Qty: 1 on 06/24/2017 by Oliverio Singh MD [place] [facility] [place] Right: Iliac MED[employer] : VASCULAR 11/22/2017 [id number] / / [id number] Lens Intraoc 17.0 - [id number] - [id number] Implanted:Qty: 1 on 04/13/2021 by Jaret Trotter MD at OR [facility] Left: Eye BAUSCH & LOMB 09/25/2025 [id number] / [id number] / [id number] Lens Intraoc 17.0 - [id number] - [id number] Implanted:Qty: 1 on 05/01/2021 by Jaret Trotter MD at [facility] Right: Eye BAUSCH & LOMB 11/26/2025 [id number] / [id number] / [id number] documented as of this encounter Advance Directives [...] Power of Attor osmani? No Care Teams Decker Operator Relationship Specialty Start Date End Date Ila Fung DO [address] [place] [address] PCP - General Family Medicine 10/10/16 documented as of this encounter
--- OUTSIDE RECORDS SUMMARY | 2025-02-04 02:43 | External Medical Summary | Summary of Care ---
Author Name Unknown Organization [facility] Address [address] [facility] [place] [address] Phone [phone] Care Team Providers Care Life Claims Examiner Name Role Phone Ila Fung DO Primary Care Provider Reason for Visit * Reason Onset Date Comments Precert Future 08/27/2024 Carbo/ taxol/ fu lphila Encounter Details Date Type Department Care Team (Late st Contact Info) Description 08/27/2024 Telephone Hematology/Oncology Treatment, [place] [address] [place] [address] Nils Reid MD [address] [place] [address] Precert Future (Carbo/ taxol/ fulphila) Allergies No [...] 2 with diabetic peripheral neuropathy Atherosclerosis of [place] ar brandon of right lower extremity with [...] mRNA, LNP-s, No Pre serve, 2-Dose Series ([employer]) 01/31/2022,07/26/2021,01/13/2021,12/23 Pneumococcal Polysaccharide PPV23 (Pneumovax) 10/08/2022 Season [...] encounter Miscellaneous Notes * Telephone Encounter - Jose Park RN [...] accepted: Orders * Telephone Encounter - Jose Prak RN - 08/27/2024 1:47 PM EDT Order received for carbo/ taxol/ fulphila. [place] plan built. Waiting for auth. Nurse education 08/31/24 *Patient will need to meet with Dr Reid as well for consent* Patient will need hep B labs/ prescriptions sent after education visit. Port placement 09/03/24 documented in this encounter Plan of Treatment Upcoming Encounters Date Type Department Care Team (Latest Contact Info) Description 08/31/2024 12:00 PM EST Laboratory Laboratory, [facility] [address] [facility] [place] [phone] AlexisDestiny pena [address] [place] [address] 09/03/2024 11:30 AM EST Hospital Encounter OR [facility], Operating Room, [facility] - 4th Floor [address] [place] [address] Onofre Mix MD [address] [place] [address] 09/03/2024 11:30 AM EST - 09/03/2024 12:24 PM EST Surgery OR [facility], Operating Room, [facility] - 4th Floor [address] [place] [address] Onofre Mix MD [address] [place] [address] INSERT TUNNELED CENTRAL VENOUS ACCESS WITH SUBQ PORT 11/24/2024 1:00 PM EST Office Visit Gynecology/Oncolog [facility] [address] [place], [place] [phone] Mauricio Ramirez PA-C [address] [place] [address] Scheduled Orders Name Type Priority Associated Diagnoses [...] Additional history exists CKD PHOS USE SMARTSET 77724 03/23/202502/25, 04/07/2023, 03/27/2022, Additional history exists CKD HGB USE SMARTSET 12325 07/15/202507/15, 06/14/2024, 06/14/2024, Additional history exists HPV [...] this encounter Medical Devices Implanted Type Area Diesel Electrician Device Identifier Shelf Expiration Date Model / Serial / Lot Stent Assurant [id number] - [id number] Implanted:Qty: 1 on 06/24/2017 by Oliverio Singh MD at OR [facility] [place] Right: Iliac [employer] : VASCULAR 11/22/2017 [id number] / / [id number] Lens Intraoc 17.0 - [id number] - [id number] Implanted:Qty: 1 on 04/13/2021 by Jaret Trotter MD at OR [facility] Left: Eye BAUSCH & LOMB 09/25/2025 [id number] / [id number] / [id number] Lens Intraoc 17.0 - [id number] - [id number] Implanted:Qty: 1 on 05/01/2021 by Jaret Trotter MD at OR [facility] Right: Eye BAUSCH & LOMB 11/26/2025 [id number] / [id number] / [id number] documented as of this encounter Visit Diagnoses [...] Power of Attor osmani? No Care Teams Life Claims Examiner Relationship Specialty Start Date End Date Ila Fung DO [address] [place] [address] PCP - General Family Medicine 10/10/16 documented as of this encounter
--- OUTSIDE RECORDS SUMMARY | 2025-02-04 02:43 | External Medical Summary ---
Author Name Unknown Address Unknown Organization K09:[facility] [place] [address] Laboratory Report Ordering Provider Test Date Status ANTHONY DA SILVA 08/31/2024 11:05:57 Final Observation Date Value Abnormality Reference (Units ) Status WBC, Total 08/31/2024 11:05:57 6.38 4.00-10.8 0 (K/uL) Final RBC 08/31/2024 11:05:57 4.78 3.85-5.15 (M/uL) Final Hemoglobin 08/31/2024 11:05:57 13.2 12.0-15.3 (g/dL) Final HCT 08/31/2024 11:05:57 40.8 36.0-45.2 (%) Final MCV 08/31/2024 11:05:57 85.4 81.5-97.5 (fL) Final MCH 08/31/2024 11:05:57 27.6 27.0-34.0 (pg) Final MCHC 08/31/2024 11:05:57 32.4 32.0-36.0 (g/dL) Final RDW 08/31/2024 11:05:57 14.0 11.5-15.5 (%) Final Platelets 08/31/2024 11:05:57 163 140-400 (K /uL) Final MPV 08/31/2024 11:05:57 9.5 6.6-11.1 ( fL) Final Performing Location [facility] [place] [address]
--- OUTSIDE RECORDS SUMMARY | 2025-02-04 02:43 | External Medical Summary | Summary of Care ---
Author Name Unknown Organization [facility] Address [address] [facility] [place] [address] Phone [phone] Care Team Providers Care General Agent Name Role Phone Ila Fung DO Primary Care Provider Reason for Visit * Reason Comments Education Encounter Details Date Type Department Care Team (Latest Contact Info) Description 08/31/2024 10:15 AM EST Pt Ed by Nurse Hematology/Oncology [facility] [address] [place] [address] Nurse Maia Hem Onc [facility] [address] [place] [address] Endometrial cancer (HCC) Allergies No known active [...] 2 with diabetic peripheral neuropathy Atherosclerosis of [place] ar brandon of right lower extremity with [...] mRNA, LNP-s, No Pre serve, 2-Dose Series ([employer]) 01/31/2022,07/26/2021,01/13/2021,12/23 Pneumococcal Polysaccharide PPV23 (Pneumovax) 10/08/2022 Season [...] on file documented as of this encounter Nursing Notes * Johnna Park RN - 08/31/2024 1:27 PM EST Nurse education for carbo/ taxol complete. documented in this encounter Plan of Treatment Upcoming Encounters Date Type Department Care Team (Latest Contact Info) Description 09/01/2024 1:00 PM EST Imaging Radiology [facility] 1st [facility] [address] [facility] [place] [address] 09/01/2024 1:30 PM EST Imaging Radiology [facility] [address] [facility] [place] [address] 09/03/2024 11:30 AM EST Hospital Encounter OR [place], Operating Room, [facility] - 4th Floor [address] [place] [address] Onofre Mix MD [address] [place] [address] 09/03/2024 11:30 AM EST - 09/03/2024 12:24 PM EST Surgery OR [facility], Operating Room, [facility] - 4th Floor [address] [place] [address] Onofre Mix MD [address] [place] [address] INSERT TUNNELED CENTRAL VENOUS ACCESS WITH SUBQ PORT 09/06/2024 10:40 AM EST Laboratory Laboratory Scenery [facility] [address] [place] [phone] Maia Lab Scenery [address] [place] [address] 09/06/2024 11:45 AM EST Hem/Onc Treatment Hematology/Oncolog y Treatment, [place] [address] [place] [address] 11/24/2024 1:00 PM EST Office Visit Gynecology/Oncolog y, [place] [address] [place] [address] Mauricio Ramirez PA-C [address] [place] [phone] Pending Results Name Type Priority Associated Diagnoses Date /Time HEPATITIS B SURFACE ANTIBODY Lab STAT Endometrial cancer (HCC) 08/31/2024 11:05 AM EST HEPATITIS B SURFACE ANTIGEN Lab STAT Endometrial cancer (HCC) 08/31/2024 11:05 AM EST HEPATITIS B CORE ANTIBODIES IGG AND IGM Lab STAT Endometrial cancer (HCC) 08/31/2024 11:05 AM EST Scheduled Procedures Name Priority Associated Diagnoses Date/Ti [...] Additional history exists CKD PHOS USE SMARTSET 78895 03/23/202502/25, 04/07/2023, 03/27/2022, Additional history exists CKD HGB USE SMARTSET 22368 08/31/202508/31, 08/31/2024, 07/15/2024, Additional history exists HPV [...] this encounter Medical Devices Implanted Type Area Phlebotomy Support Tech Device Identifier Shelf Expiration Date Model / Serial / Lot Stent Assurant [id number] - [id number] Implanted:Qty: 1 on 06/24/2017 by Oliverio Singh MD at OR [place] Right: Iliac [employer] : VASCULAR 11/22/2017 [id number] / / [id number] Lens Intraoc 17.0 - [id number] - [id number] Implanted:Qty: 1 on 04/13/2021 by Jaret Trotter MD at OR [facility] Left: Eye BAUSCH & LOMB 09/25/2025 [id number] / [id number] / [id number] Lens Intraoc 17.0 - [id number] - [id number] Implanted:Qty: 1 on 05/01/2021 by Jaret Trotter MD at OR [facility] Right: Eye BAUSCH & LOMB 11/26/2025 [id number] / [id number] / [id number] documented as of this encounter Procedures Procedure Name Priority Date/Time Associated Diagnosis Comments DIFFERENTIAL, AUTOMATED STAT 08/31/2024 11:05 AM EST Endometrial cancer (HCC) COMPREHENSIVE METABOLIC PANEL STAT 08/31/2024 11:05 AM EST Endometrial cancer (HCC) CBC STAT 08/31/2024 11:05 AM EST Endometrial cancer (HCC) CBC STAT 08/31/2024 11:05 AM EST Endometrial cancer (HCC) documented in this encounter Results * DIFFERENTIAL, AUTOMATED (08/31/2024 11:05 AM EST) WBC 6.38 4.00 - 10.80 K/uL 08/31/2024 11:11 AM [facility] 56-02 Neutrophils % 55.0 40.0 - 75.0 % 08/31/2024 11:11 AM [facility] 56-02 Lymphocytes % 32.9 18.0 - 42.0 % 08/31/2024 11:11 AM EST [facility] 56-02 Monocytes % 8.8 1.0 - 11.0 % 08/31/2024 11:11 AM [facility] 56-02 Eosinophils % 2.8 0.0 - 6.0 % 08/31/2024 11:11 AM EST [facility] 56-02 Basophils % 0.5 0.0 - 2.0 % 08/31/2024 11:11 AM [facility] 56-02 Absolute Neutrophils 3.51 1.80 - 7.70 K/uL 08/31/2024 11:11 AM [facility] 56-02 Absolute Lymphocytes 2.10 1.00 - 4.80 K/ul 08/31/2024 11:11 AM [facility] 56-02 Absolute Monocytes 0.56 0.00 - 1.10 K/uL 08/31/2024 11:11 AM [facility] 56-02 Absolute Eosinophils 0.18 0.00 - 0.70 K/uL 08/31/2024 11:11 AM [facility] 56-02 Absolute Basophils 0.03 0.00 - 0.20 K/uL 08/31/2024 11:11 AM [facility] 56-02 Blood Venous blood specimen / Unknown Venipuncture / Unknown 08/31/2024 11:05 AM EST 08/31/2024 11:05 AM EST Nils Reid MD LAB BLOOD ORDERABLES [facility] [address] [place] [address] * CBC (08/31/2024 11:05 AM EST) Pathologist [facility] WBC 6.38 4.00 - 10.80 K/uL 08/31/2024 11:11 AM [facility] 56 RBC 4.78 3.85 - 5.15 M/uL 08/31/2024 11:11 AM [facility] 56 HGB 13.2 12.0 - 15.3 g/dL 08/31/2024 11:11 AM [facility] 56 HCT 40.8 36.0 - 45.2 % 08/31/2024 11:11 AM [facility] 56 MCV 85.4 81.5 - 97.5 fL 08/31/2024 11:[address] MCH 27.6 27.0 - 34.0 pg 08/31/2024 11:11 AM [facility] 56 MCHC 32.4 32.0 - 36.0 g/dL 08/31/2024 11:[address] RDW 14.0 11.5 - 15.5 % 08/31/2024 11:11 AM [facility] 56 PLT 163 140 - 400 K/uL 08/31/2024 11:11 AM [facility] 56 MPV 9.5 6.6 - 11.1 fL 08/31/2024 11:11 AM [facility] 56 Blood Venous blood specimen / Unknown Venipuncture / Unknown 08/31/2024 11:05 AM EST 08/31/2024 11:05 AM EST Nils Reid MD LAB BLOOD ORDERABLES [facility] [address] [place] [address] * (ABNORMAL) COMPREHENSIVE METABOLIC PANEL (08/31/2024 11:05 AM EST) Pathologist [facility] BUN 15 6 - 20 mg/dL 08/31/2024 12:[address] CREATININE 0.8 0.5 - 1.0 mg/dL 08/31/2024 12:08 PM [facility] 56 EGFR 71 >=60 mL/min 08/31/2024 12:08 PM [facility] 56 Comment:eGFR is calculated b ased on the CKD-EPI 2020 equation. SODIUM 140 135 - 146 mmol/L 08/31/2024 12:[address] POTASSIUM 4.5 3.5 - 5.1 mmol/L 08/31/2024 12:[address] CHLORIDE 103 98 - 107 mmol/L 08/31/2024 12:[address] CO2 25 22 - 32 mmol/L 08/31/2024 12:[address] ANION GAP 12 7 - 15 mmol/L 08/31/2024 12:[address] GLUCOSE 141(H) 70 - 120 mg/dL 08/31/2024 12:[address] Albumin 4.3 3.8 - 5.0 g/dL 08/31/2024 12:[address] AST 16 10 - 35 U/L 08/31/2024 12:[address] Alkaline Phosphatase 83 35 - 130 U/L 08/31/2024 12:[address] Bilirubin, Total 0.5 <=1.2 mg/dL 08/31/2024 12:[address] CALCIUM 9.7 8.4 - 10.2 mg/dL 08/31/2024 12:[address] Protein 7.6 6.0 - 8.3 g/dL 08/31/2024 12:[address] ALT <5(L) 10 - 35 U/L 08/31/2024 12:[address] Blood Venous blood specimen / Unknown Venipuncture / Unknown 08/31/2024 11:05 AM EST 08/31/2024 11:05 AM EST Nils Reid MD LAB BLOOD ORDERABLES [address] [place] [address] documented in this encounter Visit Diagnoses Diagnosis Endometrial cancer (HCC) Malignant neoplasm of corpus [...] Power of Attor osmani? No Care Teams General Agent Relationship Specialty Start Date End Date Ila Fung DO [address] [place] [address] PCP - General Family Medicine 10/10/16 documented as of this encounter
--- OUTSIDE RECORDS SUMMARY | 2025-02-04 02:43 | External Medical Summary | Summary of Care ---
Author Name Unknown Organization [facility] Address [address] [facility] [place] [address] Phone [phone] Care Team Providers Care Furnace Room Supervisor Name Role Phone Ila Fung DO Primary Care Provider Reason for Visit * Reason Onset Date Comments Precert Pending 08/31/2024 Stacy Encounter Details Date Type Department Care Team (Late st Contact Info) Description 08/31/2024 Telephone Hematology/Oncology Treatment, [place] [address] [place] [address] Nils Reid MD [address] [facility] [place] [address] Precert Pending (Stacy) Allergies No known active [...] 2 with diabetic peripheral neuropathy Atherosclerosis of [place] brandon of right lower extremity with [...] mRNA, LNP-s, No Pre serve, 2-Dose Series ([employer]) 01/31/2022,07/26/2021,01/13/2021,12/23 Pneumococcal Polysaccharide PPV23 (Pneumovax) 10/08/2022 Season [...] encounter Miscellaneous Notes * Telephone Encounter - Stacy Grissom OSA - 08/31/2024 4:16 PM EST [facility] Authorization Submission Submission Information: Medication: ONDANSETRON HCL 8 MG TABLET Portal used: formerly [facility] Insurance: [facility] Authorization #/[place]: [id number] Thank you, Stacy Grisosm Medication Mercury Purifier III 08/31/2024, 4:16 PM * Telephone Encounter - Jhonna Park RN - 08/31/2024 3:06 PM EST ICD-10: c54.1 Start date: 1 week Drugs: zofran prescription Disp Refills Start End Ondansetron HCl 8 MG Oral Tablet (Zofran) 30 Tablet 2 08/31/2024 -- Sig - Route: Take 1 Tablet by mouth every 8 hours as needed for Nausea. - Oral Physician: Dr Nils Reid Comments: Received fax from [facility] pharmacy that zofran requires prior auth. documented in this encounter Plan of Treatment Upcoming Encounters Date Type Department Care Team (Latest Contact Info) Description 09/01/2024 1:00 PM EST Imaging Radiology [address] [place] [address] 09/01/2024 1:30 PM EST Imaging Radiology [facility] [address] [facility] [place] [address] 09/03/2024 11:30 AM EST Hospital Encounter OR [facility], Operating Room, [facility] - 4th Floor [address] [place] [phone] Onofre Mix MD [address] [place] [address] 09/03/2024 11:30 AM EST - 09/03/2024 12:24 PM EST Surgery OR [facility], Operating Room, [facility] - 4th Floor [address] [place] [phone] Onofre Mix MD [address] [place] [address] INSERT TUNNELED CENTRAL VENOUS ACCESS WITH SUBQ PORT 09/06/2024 10:40 AM EST Laboratory Laboratory Scenery [facility] [address] [place] [phone] [place] Scene [address] [facility] [place] [address] 09/06/2024 11:45 AM EST Hem/Onc Treatment Hematology/Oncolog y Treatment, [place] [address] [place] [address] 11/24/2024 1:00 PM EST Office Visit Gynecology/Oncolog y, [place] [address] [place] [address] Mauricio Ramirez PA-C [address] [place] [address] Scheduled Procedures Name Priority Associated [...] Additional history exists CKD PHOS USE SMARTSET 72515 03/23/202502/25, 04/07/2023, 03/27/2022, Additional history exists CKD HGB USE SMARTSET 98862 08/31/202508/31, 08/31/2024, 07/15/2024, Additional history exists HPV [...] this encounter Medical Devices Implanted Type Area Automation Consultant Device Identifier Shelf Expiration Date Model / Serial / Lot Stent Joss[employer]ant [id number] - [id number] Implanted:Qty: 1 on 06/24/2017 by Oliverio Singh MD at OR [facility] Right: Iliac [employer] : VASCULAR 11/22/2017 [id number] / / [id number] Lens Intraoc 17.0 - [id number] - [id number] Implanted:Qty: 1 on 04/13/2021 by Jaret Trotter MD at OR [facility] Left: Eye BAUSCH & LOMB 09/25/2025 [id number] / [id number] / [id number] Lens Intraoc 17.0 - [id number] - [id number] Implanted:Qty: 1 on 05/01/2021 by Jaret Trotter MD at OR [facility] Right: Eye BAUSCH & LOMB 11/26/2025 [id number] / [id number] / [id number] documented as of this encounter Advance Directives [...] Power of Attor osmani? No Care Teams Furnace Room Supervisor Relationship Specialty Start Date End Date Ila Fung DO [address] [facility] [place] [address] PCP - General Family Medicine 10/10/16 documented as of this encounter
--- OUTSIDE RECORDS SUMMARY | 2025-02-04 02:43 | External Medical Summary | Summary of Care ---
Author Name Unknown Organization [facility] Address [address] [facility] [place] [address] Phone [phone] Care Team Providers Care Adjunct Instructor Chemistry Name Role Phone Ila Fung DO Primary Care Provider Reason for Visit * Reason Onset Date Comments Precert Future 08/31/2024 Zofran prescript ion Encounter Details Date Type Department Care Team (Late st Contact Info) Description 08/31/2024 Telephone Hematology/Oncology Treatment, [place] [address] [place] [address] Nils Reid MD [address] [place] [address] Precert Future (Zofran prescription) Allergies No known active allergiesdocumented as of [...] 2 with diabetic peripheral neuropathy Atherosclerosis of [place] of right lower extremity with [...] mRNA, LNP-s, No Pre serve, 2-Dose Series ([employer]) 01/31/2022,07/26/2021,01/13/2021,12/23 Pneumococcal Polysaccharide PPV23 (Pneumovax) 10/08/2022 Season [...] Dr Nils Reid Comments: Received fax from [facility] pharmacy that zofran requires prior auth. documented in this encounter Plan of Treatment Upcoming Encounters Date Type Department Care Team (Latest Contact Info) Description 09/01/2024 1:00 PM EST Imaging Radiology [facility] 1st [facility] [address] [facility] [place] [address] 09/01/2024 1:30 PM EST Imaging Radiology [facility] [address] [facility] [place] [address] 09/03/2024 11:30 AM EST Hospital Encounter [place] [facility], Operating Room, [facility] - 4th Floor [address] [place] [phone] Onofre Mix MD [address] [place] [address] 09/03/2024 11:30 AM EST - 09/03/2024 12:24 PM EST Surgery [facility], Operating Room, [facility] - 4th Floor [address] [place] [phone] Onofre Mix MD [address] [place] [address] INSERT TUNNELED CENTRAL VENOUS ACCESS WITH SUBQ PORT 09/06/2024 10:40 AM EST Laboratory Laboratory Scenery [place] [address] [place] [phone] [place], Lab Scenery [address] [place] [address] 09/06/2024 11:45 AM EST Hem/Onc Treatment Hematology/Oncolog y Treatment, [place] [address] [place] [phone] 11/24/2024 1:00 PM EST Office Visit Gynecology/Oncolog y, [place] [address] [place] [address] Mauricio Ramirez PA-C [address] [place] [address] Scheduled Procedures Name Priority Associated [...] Additional history exists CKD PHOS USE SMARTSET 13375 03/23/202502/25, 04/07/2023, 03/27/2022, Additional history exists CKD HGB USE SMARTSET 50152 08/31/202508/31, 08/31/2024, 07/15/2024, Additional history exists HPV [...] this encounter Medical Devices Implanted Type Area Keyboard Specialist Device Identifier Shelf Expiration Date Model / Serial / Lot Stent [employer]ant [id number] - [id number] Implanted:Qty: 1 on 06/24/2017 by Oliverio Singh MD at OR [facility] Right: Iliac [employer] : VASCULAR 11/22/2017 [id number] / / [id number] Lens Intraoc 17.0 - [id number] - [id number] Implanted:Qty: 1 on 04/13/2021 by Jaret Trotter MD at OR [facility] Left: Eye BAUSCH & LOMB 09/25/2025 [id number] / [id number] / [id number] Lens Intraoc 17.0 - [id number] - [id number] Implanted:Qty: 1 on 05/01/2021 by Jaret Trotter MD at OR [facility] Right: Eye BAUSCH & LOMB 11/26/2025 [id number] / [id number] / [id number] documented as of this encounter Advance Directives [...] Power of Attor osmani? No Care Teams Adjunct Instructor Chemistry Relationship Specialty Start Date End Date Ila Fung DO [address] [place] [address] PCP - General Family Medicine 10/10/16 documented as of this encounter
--- OUTSIDE RECORDS SUMMARY | 2025-02-04 02:43 | External Medical Summary ---
Author Name Unknown Address Unknown Organization K01:[facility] [place] [address] [place] [address] Laboratory Report Ordering Provider Test Date Status ANTHONY DA SILVA 08/31/2024 11:05:57 Final Observation Date Value Abnormality Reference (Units) Status Hepatitis B virus surface Ab [Units/volume] in Serum or Plasma by Immunoassay 08/31/2024 11:05:57 <3.5 (mIU/mL) Final Hepatitis B virus surface Ab [Presence] in Serum by Immunoassay 08/31/2024 11:05:57 Negative Final HEPATITIS B SURFACE ANTIBODY, INTERPRETATION 08/31/2024 11:05:57 NOT immune to Hepatitis B Virus Final POSITIVE: >=11.5 mIU/mL
INDETERMINATE: 8.5-<11.5 mIU/mL
NEGATIVE: <8.5 mIU/mL Performing Location [facility] [place] [address] [place] [address]
--- OUTSIDE RECORDS SUMMARY | 2025-02-04 02:43 | External Medical Summary ---
Author Name Unknown Address Unknown Organization K01:[facility] - [address] [place] [address] Laboratory Report Ordering Provider Test Date Status ANTHONY DA SILVA 08/31/2024 11:05:57 Final Observation Date Value Abnormality Reference (Units ) Status Hepatitis B virus core Ab [Presence] in Serum 08/31/2024 11:05:57 Negative Negative Final Performing Location [facility] - [address] [place] [address]
--- OUTSIDE RECORDS SUMMARY | 2025-02-04 02:43 | External Medical Summary ---
Author Name Unknown Address Unknown Organization K01:[facility] - [address] [place] [address] Laboratory Report Ordering Provider Test Date Status ANTHONY DA SILVA 08/31/2024 11:05:57 Final Observation Date Value Abnormality Reference (Units ) Status Hep B surface Ag 08/31/2024 11:05:57 Negative Neg ative Final Performing Location [facility] - [address] [place] [address]
--- OUTSIDE RECORDS SUMMARY | 2025-02-04 02:43 | External Medical Summary | Summary of Care ---
Author Name Unknown Organization [facility] Address [address] [facility] [place] [address] Phone [phone] Care Team Providers Care Bottom Sander Name Role Phone Ila Fung DO Primary Care Provider Reason for Visit * Reason Onset Date Comments Medication Refill 08/31/2024 Encounter Details Date Type Department Care Team (Late st Contact Info) Description 08/31/2024 Refill Hematology/Oncology Treatment, [place] [address] [facility] [place] [phone] Nils Reid MD [address] [place] [address] Endometrial cancer (HCC)* Allergies No known active [...] day of chemotherapy 30 Tablet 08/31/2024 Active documented as of this encounter [...] 2 with diabetic peripheral neuropathy Atherosclerosis of [place] ar brandon of right lower extremity with [...] encounter Miscellaneous Notes * Addendum Note - Jose Park RN [...] Description 08/31/2024 12:00 PM EST Laboratory Laboratory, [facility] [address] [facility] [place] [phone] AlexisDestiny pena [address] [facility] [place] [address] 09/03/2024 11:30 AM EST Hospital Encounter [place] [facility], Operating Room, [facility] - 4th Floor [address] [place] [phone] Onofre Mix MD [address] [place] [address] 09/03/2024 11:30 AM EST - 09/03/2024 12:24 PM EST Surgery [place] [facility], Operating Room, [facility] - 4th Floor [address] [place] [phone] Onofre Mix MD [address] [place] [address] INSERT TUNNELED CENTRAL VENOUS ACCESS WITH SUBQ PORT 11/24/2024 1:00 PM EST Office Visit Gynecology[place]Onc[place] [address] [place] [address] Mauricio Ramirez PA-C [address] [place] [phone] Scheduled Procedures Name Priority Associated Diagnoses Date/Ti [...] Additional history exists CKD PHOS USE SMARTSET 66946 03/23/202502/25, 04/07/2023, 03/27/2022, Additional history exists CKD HGB USE SMARTSET 39251 07/15/202507/15, 06/14/2024, 06/14/2024, Additional history exists HPV [...] this encounter Medical Devices Implanted Type Area Accounting Instructor Device Identifier Shelf Expiration Date Model / Serial / Lot Stent Assurant [id number] - [id number] Implanted:Qty: 1 on 06/24/2017 by Oliverio Singh MD at OR [facility] Right: Iliac [employer] : VASCULAR 11/22/2017 [id number] / / [id number] Lens Intraoc 17.0 - [id number] - [id number] Implanted:Qty: 1 on 04/13/2021 by Jaret Trotter MD at OR [facility] Left: Eye BAUSCH & LOMB 09/25/2025 [id number] / [id number] / [id number] Lens Intraoc 17.0 - [id number] - [id number] Implanted:Qty: 1 on 05/01/2021 by Jaret Trotter MD at [facility] Right: Eye BAUSCH & LOMB 11/26/2025 [id number] / [id number] / [id number] documented as of this encounter Visit Diagnoses [...] Power of Attor osmani? No Care Teams Bottom Sander Relationship Specialty Start Date End Date Ila Fung DO [address] [place] [address] PCP - General Family Medicine 10/10/16 documented as of this encounter
--- OUTSIDE RECORDS SUMMARY | 2025-02-04 02:43 | External Medical Summary | Summary of Care ---
Author Name Unknown Organization [facility] Address [address] [facility] [place] [address] Phone [phone] Care Team Providers Care Hand Endband Cutter Name Role Phone Ila Fung DO Primary Care Provider Reason for Visit * Reason Onset Date Comments FYI 09/01/2024 Diagnostic imagi ng Encounter Details Date Type Department Care Team (Late st Contact Info) Description 09/01/2024 Telephone Hematology/Oncology [facility] [place] [address] [facility] [place] [phone] Nils Reid MD [address] [facility] [place] [address] FYI (Diagnostic imaging) Allergies No known active [...] mRNA, LNP-s, No Pre serve, 2-Dose Series ([employer]) 01/31/2022,07/26/2021,01/13/2021,12/23 Pneumococcal Polysaccharide PPV23 (Pneumovax) 10/08/2022 Season [...] encounter Miscellaneous Notes * Telephone Encounter - Mimi Rasmussen OSA [...] 09/03/2024 11:30 AM EST Hospital Encounter OR [facility], Operating Room, [facility] - 4th Floor [address] [place] [phone] Onofre Mix MD [address] [place] [address] 09/03/2024 11:30 AM EST - 09/03/2024 12:24 PM EST Surgery OR [facility], Operating Room, [facility] - 4th Floor [address] [place] [phone] Onofre Mix MD [address] [place] [address] INSERT TUNNELED CENTRAL VENOUS ACCESS WITH SUBQ PORT 09/06/2024 10:40 AM EST Laboratory Laboratory Scenery [facility] [address] [place] [phone] [place], Lab Scenery [address] [place] [address] 09/06/2024 11:45 AM EST Hem/Onc Treatment Hematology/Oncolog y Treatment, [place] [address] [place] [phone] 11/24/2024 1:00 PM EST Office Visit Gynecology/Oncolog y, [place] [address] [place] [address] Mauricio Ramirez PA-C [address] [place] [phone] Scheduled Procedures Name Priority Associated Diagnoses Date/Ti [...] Additional history exists CKD PHOS USE SMARTSET 27151 03/23/202502/25, 04/07/2023, 03/27/2022, Additional history exists CKD HGB USE SMARTSET 04406 08/31/202508/31, 08/31/2024, 07/15/2024, Additional history exists HPV [...] this encounter Medical Devices Implanted Type Area Paint Supervisor Device Identifier Shelf Expiration Date Model / Serial / Lot Stent Assurant [id number] - [id number] Implanted:Qty: 1 on 06/24/2017 by Oliverio Singh MD at OR [facility] [place] Right: Iliac [employer] : VASCULAR 11/22/2017 [id number] / / [id number] Lens Intraoc 17.0 - [id number] - [id number] Implanted:Qty: 1 on 04/13/2021 by Jaret Trotter MD at OR [facility] Left: Eye BAUSCH & LOMB 09/25/2025 [id number] / [id number] / [id number] Lens Intraoc 17.0 - [id number] - [id number] Implanted:Qty: 1 on 05/01/2021 by Jaret Trotter MD at OR [facility] Right: Eye BAUSCH & LOMB 11/26/2025 [id number] / [id number] / [id number] documented as of this encounter Advance Directives [...] of Attor osmani? No Care Teams Hand Endband Cutter Relationship Specialty Start Date End Date Ila Fung DO [address] [place] [address] PCP - General Family Medicine 10/10/16 documented as of this encounter
--- OUTSIDE RECORDS SUMMARY | 2025-02-04 02:44 | External Medical Summary | Summary of Care ---
Author Name Unknown Organization [facility] Address [address] [place] [address] Phone [phone] Care Team Providers Care Manager Car Name Role Phone Ila Fung DO Primary Care Provider Reason for Visit * Reason Comments Post-Op 6 wk Encounter Details Date Type Department Care Team (Late st Contact Info) Description 08/24/2024 10:30 AM EDT Office Visit Gynecology/Oncology, [place] [address] [place] [address] Mauricio Ramirez PA-C [address] [place] [address] Endometrial cancer (HCC)* Allergies No known active allergiesdocumented as of this encounter (statuses as of 08/24/2024) Medications Medication Sig Dispensed Refills Start Date [...] as of this encounter (statuses as of 08/24/2024) Active Problems Problem Noted Date Diagnosed Date Endometrial cancer 06/09/2024 Cancer Staging:Clinical stage from [...] 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 06/20/2017 Former smoker 06/20/2017 HTN, goal below 140/90 02/15/2015 Alcohol dependence in remission 06/15/2013 Hyperlipidemia with target LDL less than 100 Overview: ICD-10 update of inactive term Type 2 diabetes, HbA1C goal < 8% documented as of this encounter (statuses as of 08/24/2024) Resolved Problems Problem Noted Date Diagnosed Date [...] as of this encounter (statuses as of 08/24/2024) Immunizations Name Administration Dates Next Due COVID-19 mRNA, LNP-s, No Pre serve, 2-Dose Series ([employer]) 01/31/2022,07/26/2021,01/13/2021,12/23 Pneumococcal Polysaccharide PPV23 (Pneumovax) 10/08/2022 Season Influenza, Quad, PF, Adjuvanted, 65+ Yrs, IM (FLUAD) 07/19/2022,07/04/2021,08/04/2020 Seasonal Influenza Virus Vac cine, Unspecified Formulation 08/04/2020 TDAP, Age 7 and older, IM (Adacel) 04/26/2013 documented as of this encounter Social History Tobacco Use Types Packs/Day Years Used Date Smoking Tobacco: Former Cigarettes 1 29 0 [birth year]/05/1949 - 12/05/1978 Smokeless Tobacco: Never Tobacco Cessation:Counseling Given: Not Answered Alcohol Use Standard Drinks/Week Comments No 0 [...] on file documented as of this encounter Last Filed Vital Signs Vital Sign Reading Time Taken Comments Blood Pressure 118/77 08/24/2024 10:26 AM EDT Pulse 76 08/24/2024 10:26 AM EDT Temperature - - Respiratory Rate 20 08/24/2024 10:26 AM EDT Oxygen Saturation - - Inhaled Oxygen Concentration - - Weight 66.3 kg (146 lb 2 oz) 08/24/2024 10:26 AM EDT Height - - Body Mass Index 24.32 07/21/2024 10:00 AM EDT documented in this encounter Progress Notes * Mauricio Ramirez PA-C - 08/24/2024 10:30 AM EDT CC: Post operative appointment HPI: Jyoti Izaguirre is an 83 year old female with a history 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 On 07/21/2024 the patient underwent a robotic assisted total laparoscopic hysterectomy with bilateral salpingo-oophorectomy and bilateral sentinel pelvic lymph node dissection. Per tumor board discussion, the patient requires further cancer-directed treatment with chemotherapy followed by re-evaluation for radiation therapy. Returns for last post-op visit with no complaints. Bowel and bladder function have normalized. Denies fevers or chills. Denies any problems with wound. Denies any vaginal bleeding or discharge. Denies lower extremity pain or swelling. Physical Exam: BP 118/77 (BP Site: Left Arm, BP Position: Sitting, BP Cuff Size: Regular) | Pulse 76 | Resp 20 | Wt 66.3 kg (146 lb 2 oz) | LMP (LMP Unknown) | BMI 24.32 kg/m² | BSA 1.74 m² General: Pleasant, well nourished, no apparent distress, alert and oriented x3. Abdomen: Soft and nontender, no masses, no organomegaly. Incision: Healing well. No induration or fluctuance or erythema. Ext Gen: No suspicious lesions Vagina: Cuff well visualized, cuff healing well, suture material visualized Bimanual: No cuff mass R/V: Deferred Lower extremities: Non-tender and non-edematous Pulp Grinder And Blender Documentation Provider requested highway traffic control technician. 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 Post-op: - All postop restrictions lifted, increase activity as tolerated 2. 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 - Per Dr. Iyer's recommendations, the patient should undergo 6 cycles of cytotoxic chemotherapyto include carboplatin AUC 6 and paclitaxel 175 milligrams/meter squared Q 21 days. The patient should then be re-evaluated for the appropriateness of external beam radiation and vaginal brachytherapy. - Patient seen and evaluated by radiation oncology 08/18/2024, scheduled to see hematology oncologyon 08/25/2024 Patient verbalized understanding of diagnosis & treatment plan and had no further questions. Mauricio Ramirez PA-C Gynecologic Oncology 08/24/2024 documented in this encounter Nursing Notes * Sandhya Guzmán MED ASSIST - 08/24/2024 10:25 AM EDT Jyoti presents in clinic today for 6 wk postop documented in this encounter Plan of Treatment Upcoming Encounters Date Type Department Care Team (Late st Contact Info) Description 08/25/2024 9:45 AM EDT Office Visit Hematology/Oncology [facility] [address] [facility] [place] [phone] Nils Reid MD [address] [facility] [place] [address] 11/24/2024 1:00 PM EST Office Visit Gynecology/Oncology, [place] [address] [place] [address] Mauricio Ramirez PA-C [address] [place] [address] Scheduled Procedures Name Priority Associated [...] Additional history exists CKD PHOS USE SMARTSET 20671 03/23/202502/25, 04/07/2023, 03/27/2022, Additional history exists CKD HGB USE SMARTSET 38370 07/15/202507/15, 06/14/2024, 06/14/2024, Additional history exists HPV [...] this encounter Medical Devices Implanted Type Area Housekeeper Device Identifier Shelf Expiration Date Model / Serial / Lot Stent [employer]ur[employer] [id number] - [id number] Implanted:Qty: 1 on 06/24/2017 by Oliverio Singh MD [place] [facility] [place]: Iliac [employer] : VASCULAR 11/22/2017 [id number] / / [id number] Lens Intraoc 17.0 - [id number] - [id number] Implanted:Qty: 1 on 04/13/2021 by Jaret Trotter MD at OR [facility] Left: Eye BAUSCH & LOMB 09/25/2025 [id number] / [id number] / [id number] Lens Intraoc 17.0 - [id number] - [id number] Implanted:Qty: 1 on 05/01/2021 by Jaret Trotter MD at OR [facility] Right: Eye BAUSCH & LOMB 11/26/2025 [id number] / [id number] / [id number] documented as of this encounter Visit Diagnoses [...] Power of Attor osmani? No Care Teams Manager Car Relationship Specialty Start Date End Date Ila Fung DO [address] [place] [address] PCP - General Family Medicine 10/10/16 documented as of this encounter"
--- OUTSIDE RECORDS SUMMARY | 2025-02-04 02:44 | External Medical Summary | Summary of Care ---
Author Name Unknown Organization [facility] Address [address] [facility] [place] [address] Phone [phone] Care Team Providers Care Cloth Dye Range Operator Name Role Phone Ila Fung DO Primary Care Provider Reason for Visit * Reason Onset Date Comments Scheduling 08/26/2024 Encounter Details Date Type Department Care Team (Late st Contact Info) Description 08/26/2024 Telephone Hematology/Oncology [facility] [place] [address] 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 06/20/2017 Former smoker 06/20/2017 HTN, goal below 140/90 02/15/2015 Alcohol dependence in remission 06/15/2013 Hyperlipidemia with target LDL less than 100 Overview: ICD-10 update of inactive term Type 2 diabetes, HbA1C goal < 8% documented as of this encounter (statuses as of 08/26/2024) Resolved Problems Problem Noted Date Diagnosed Date [...] as of this encounter (statuses as of 08/26/2024) Immunizations Name Administration Dates Next Due COVID-19 [...] Telephone Encounter - Dorothea Orozco OSA - 08/26/2024 8:39 AM EDT Spoke to patient to schedule the Mediport Insertion for 09/03 at [facility]. Patient identified by: name Person taught: Patient METHOD: Lecture-telephone interview PATIENT INSTRUCTIONS GIVEN: - General Preoperative Instructions Reviewed - NPO Instructions Reviewed, pt to stop eating 8 hours prior to procedure and stop drinking 2 hoursprior to procedure. -Equipment Engineer required Location and check-in instructions Verbalizes understanding of education: Yes Procedure date at time of Imaging Encounter: 09/03 What procedure is patient having? Mediport Insertion Laterality confirmed as Not Applicable Does the patient have a yellow bar? did not The Patient was given the opportunity to ask questions concerning the procedure. Signature: GUSTAVO Watson 08/26/2024 documented in this encounter Plan of Treatment Upcoming Encounters Date Type Department Care Team (Late st Contact Info) Description 08/30/2024 10:00 AM EST Pt Ed by Nurse Hematology/Oncology [facility] [address] [place] [phone] Nurse Maia Hem Onc [facility] [address] [place] [address] 09/01/2024 1:00 PM EST Imaging Radiology [facility] [address] [facility] [address] [facility] [address] 09/01/2024 1:30 PM EST Imaging Radiology [facility] [address] [place] [address] 11/24/2024 1:00 PM EST Office Visit Gynecology/Oncology, [place] [address] [place] [address] Mauricio Ramirez PA-C [address] [place] [address] Scheduled Procedures Name Priority Associated [...] Additional history exists CKD PHOS USE SMARTSET 41211 03/23/202502/25, 04/07/2023, 03/27/2022, Additional history exists CKD HGB USE SMARTSET 88629 07/15/202507/15, 06/14/2024, 06/14/2024, Additional history exists HPV [...] this encounter Medical Devices Implanted Type Area Shipping Packer Device Identifier Shelf Expiration Date Model / Serial / Lot Stent Assurant [id number] - [id number] Implanted:Qty: 1 on 06/24/2017 by Oliverio Singh MD at [place] [facility] [place] Right: Iliac [employer] : VASCULAR 11/22/2017 [id number] / / [id number] Lens Intraoc 17.0 - [id number] - [id number] Implanted:Qty: 1 on 04/13/2021 by Jaret Trotter MD at OR [facility] Left: Eye BAUSCH & LOMB 09/25/2025 [id number] / [id number] / [id number] Lens Intraoc 17.0 - [id number] - [id number] Implanted:Qty: 1 on 05/01/2021 by Jaret Trotter MD at OR [facility] Right: Eye BAUSCH & LOMB 11/26/2025 [id number] / [id number] / [id number] documented as of this encounter Advance Directives [...] Power of Attor osmani? No Care Teams Cloth Dye Range Operator Relationship Specialty Start Date End Date Ila Fung DO [address] [place] [address] PCP - General Family Medicine 10/10/16 documented as of this encounter
--- OUTSIDE RECORDS SUMMARY | 2025-02-04 02:44 | External Medical Summary | Summary of Care ---
Author Name Unknown Organization [facility] Address [address] [facility] [place] [address] Phone [phone] Care Team Providers Care Die Maker Bench Stamping Name Role Phone Ila Fung DO Primary Care Provider Encounter Details Date Type Department Care Team (Late st Contact Info) Description 08/27/2024 Orders Only Hematology/Oncology [facility] Maia [place] [address] [facility] [place] [address] Nils Reid MD [address] [place] [address] Allergies No known active allergiesdocumented as of this encounter (statuses as of 08/27/2024) Medications Medication Sig Dispensed Refills Start Date [...] as of this encounter (statuses as of 08/27/2024) Active Problems Problem Noted Date Diagnosed Date [...] 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 06/20/2017 Former smoker 06/20/2017 HTN, goal below 140/90 02/15/2015 Alcohol dependence in remission 06/15/2013 Hyperlipidemia with target LDL less than 100 Overview: ICD-10 update of inactive term Type 2 diabetes, HbA1C goal < 8% documented as of this encounter (statuses as of 08/27/2024) Resolved Problems Problem Noted Date Diagnosed Date [...] as of this encounter (statuses as of 08/27/2024) Immunizations Name Administration Dates Next Due COVID-19 mRNA, LNP-s, No Pre serve, 2-Dose Series ([employer]) 01/31/2022,07/26/2021,01/13/2021,12/23 Pneumococcal Polysaccharide PPV23 (Pneumovax) 10/08/2022 Season [...] [place] [address] [place] [address] [phone] Nurse Maia Hem Onc [place] [address] [place] [place] [address] 09/03/2024 11:30 AM EST Hospital Encounter OR [facility], Operating Room, [facility] - 4th Floor [address] [place] [phone] Onofre Mix MD [address] [place] [address] 09/03/2024 11:30 AM EST - 09/03/2024 12:24 PM EST Surgery [facility], Operating Room, [facility] - 4th Floor [address] [place] [phone] Onofre Mix MD [address] [place] [address] INSERT TUNNELED CENTRAL VENOUS ACCESS WITH SUBQ PORT 11/24/2024 1:00 PM EST Office Visit Gynecology/Oncology , [place] [address] [place] [address] Mauricio Ramirez PA-C [address] [place] [address] Scheduled Procedures Name Priority Associated [...] Additional history exists CKD PHOS USE SMARTSET 22296 03/23/202502/25, 04/07/2023, 03/27/2022, Additional history exists CKD HGB USE SMARTSET 04552 07/15/202507/15, 06/14/2024, 06/14/2024, Additional history exists HPV [...] this encounter Medical Devices Implanted Type Area Sawmill Manager Device Identifier Shelf Expiration Date Model / Serial / Lot Stent Assurant [id number] - [id number] Implanted:Qty: 1 on 06/24/2017 [place]io Singh [place] [facility]: Iliac [employer] : VASCULAR 11/22/2017 [id number] / / [id number] Lens Intraoc 17.0 - [id number] - [id number] Implanted:Qty: 1 on 04/13/2021 by Jaret Trotter MD at OR [facility] Left: Eye BAUSCH & LOMB 09/25/2025 [id number] / [id number] / [id number] Lens Intraoc 17.0 - [id number] - [id number] Implanted:Qty: 1 on 05/01/2021 by Jaret Trotter MD at [facility] Right: Eye BAUSCH & LOMB 11/26/2025 [id number] / [id number] / [id number] documented as of this encounter Advance Directives [...] Power of Attor osmani? No Care Teams Die Maker Bench Stamping Relationship Specialty Start Date End Date Ila Fung DO [address] [place] [address] PCP - General Family Medicine 10/10/16 documented as of this encounter
--- OUTSIDE RECORDS SUMMARY | 2025-02-04 02:44 | External Medical Summary | Summary of Care ---
Author Name Unknown Organization [facility] Address [address] [facility] [place] [address] Phone [phone] Care Team Providers Care Stretching Machine Operator Name Role Phone Ila Fung DO Primary Care Provider [phone] Reason for Referral * Precert (Within 10 days (routine)) - Authorized Specialty Diagnoses / Procedures Referred By Contac t Referred To Contact Radiology Diagnoses Endometrial cancer (HCC) Procedures IR VENOUS ACCESS MEDIPORT Avinash Reid MD [address] [place] [address] Referral ID Status Reason Start Date Expiration Date V isits Requested Visits Authorized [id number] Authorized 09/01/2024 999 999 Reason for Visit * Reason Comments NEW PATIENT DIRECTOR TOXICOLOGY Encounter Details Date Type Department Care Team (Late st Contact Info) Description 08/25/2024 9:45 AM EDT Office Visit Hematology/Oncology State [facility] [address] [place] [phone] Avinash Reid MD [address] [place] [address] Endometrial cancer (HCC)*; Mass of upper outer quadrant of left breast Allergies No known active allergiesdocumented as of [...] 2 with diabetic peripheral neuropathy Atherosclerosis of [place] ar brandon of right lower extremity with [...] Sign Reading Time Taken Comments Blood Pressure 168/79 08/25/2024 9:39 AM EDT Pulse 81 08/25/2024 9:39 AM EDT Temperature 36.4 °C (97.6 °F) 08/25/2024 9:39 AM ED T Respiratory Rate - - Oxygen Saturation 94% 08/25/2024 9:39 AM EDT Inhaled Oxygen Concentration - - Weight 66 kg (145 lb 8 oz) 08/25/2024 9:39 AM ED T Height 161.3 cm (5' 3.5") 08/25/2024 9:39 AM EDT Body Mass Index 25.37 08/25/2024 9:39 AM EDT documented in this encounter Progress Notes * Avinash Reid MD - 08/25/2024 9:45 AM EDT Hematology/Oncology Outpatient Consult Note Nikhil Tanner [address] [place] [address] JYOTI IZAGUIRRE MR # [id number] :1940 83-year-old female, REASON FOR CONSULTATION: Consultation for Jyoti Izaguirre requested by Dr. Shoemaker/Dr. 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 -HER2 Ludy negative, MSI stable. Lung nodules, 3 to 5 mm, at least 10 in number. Left breast mass measuring about 2.8 x 2 cm. CURRENT TREATMENT: Planning for systemic chemotherapy with Paclitaxel and carboplatin x6. Will have radiation treatment after completion of the initial systemic chemotherapy (she will have radiation treatment at [facility]). Also planning for brachytherapy DIAGNOSTIC WORKUP: She had a abnormal vaginal bleeding for about 2 weeks duration earlier in April 2024. Pelvic ultrasound on 05/18/2024 showed 3.1 cm endometrial mass. Biopsy from the endometrial mass: ( 06/02/2024). -clear cell uterine carcinoma. CT scan of the chest, abdomen pelvis on 06/18/2024: -scattered 3 to 5 mm lung nodules, at least 10. -2.8 x 2 cm medial left breast mass. Axillary lymphadenopathy -no suspicious findings noted in the abdomen or pelvis Cancer marker result done on 06/09/2024: -CA 19-9 level -->. 118 -CEA level at 2.2, CA 125 level --> 23.6 Underwent ANA/BSO and sentinel node biopsy by Dr. Iyer on 07/21/2024: -clear cell uterine carcinoma, tumor invades greater than 50% of myometrium, lymphovascular and perineural invasion noted.- -cervix diffuse involvement by the clear cell carcinoma, paracervical, vaginal cuff resection margin positive for the carcinoma. 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 -1 out of one right sentinel lymph node positive for metastatic disease, left sentinel lymph node x1 negative for metastatic disease. Pathological T3b, N1a, stage IIIC1 From peritoneal washing --> positive for clear cell carcinoma of mullerian origin. -HER2 Ludy negative by IHC. -MSI stable. OTHER IMPORTANT HISTORY: - Anxiety INTERVAL HISTORY: She has come the clinic for the initial evaluation, overall she has recovered from recent surgery, no nausea no vomiting, no new CBCD, good appetite, current weight around 145 lb, ambulates well by herself, ECOG PS 1. No new cardiac or pulmonary symptom, no leg edema. Denies any tingling and numbness of extremities. No back pain or bone pain. REVIEW OF SYSTEMS: GENERAL: No recent change in weight, no weakness, no fatigue, no fever, sweats or chills. SKIN: No skin rash, no bruising. HEAD: No new headache, no dizziness. EYES: No recent change in the vision, no diplopia, EARS: No earache no tinnitus, NOSE: No epistaxis, No nasal discharge or stuffiness, MOUTH: No sores, no dysphagia, no hoarseness of voice, NECK: No lumps, No swelling in thyroid area. No stiffness. PULMONARY: No cough, No shortness of breath, no hemoptysis, no chest pain, No wheezing. CARDIOVASCULAR: No anginal chest pain, no PND, no orthopnea. No palpitation, no leg edema. No syncope. GASTROINTESTINAL: No abdominal pain, no nausea or vomiting. No diarrhea, No constipation. No blood in stool or black tarry stools. No abdominal distention. UROLOGIC: No burning urination. No hematuria. MUSCULOSKELETAL: No joint pain, No joint swelling, no muscle weakness. HEMATOLOGIC: No anemia, no bleeding disorder, No bruising. NEUROLOGIC: No seizures, no focal weakness, no speech difficulty, No memory disturbances. No tingling or numbness of the extremities. PSYCHIATRIC: No depression. Some anxiety. No psychosis. Past Medical History: Diagnosis Date Alcohol abuse HSV (herpes simplex virus) anogenital infection 3-4 outbreaks in last 10 years, used valcyclovir HTN, goal below 140/80 Hyperlipidemia LDL goal < 100 Insomnia on xanax from prior dr Pulmonary embolus ([facility]) 2012 Type 2 diabetes, HbA1c goal < 7% ([facility]) Past Surgical History: Procedure Laterality Date BUNION CORRECTED WITH DOUBLE OSTEOTOMY 15 years ago bilateral COLONOSCOPY, DIAGNOSTIC (RECTUM) 11/30/2013 COLONOSCOPY FLEXIBLE PROXIMAL DIAGNOSTIC performed by Belkys Allred DO at [facility] HEMORRHOIDECTOMY,EXTERNAL, 2 + COLUMNS 50 years ago painful hemorrhoids prior to procedure ILIAC ART. REVASC W/ STENT+ANGIOPLASTY Right 06/24/2017 ILIAC ARTERY REVASC W/ STENT+ANGIOPLASTY performed by Oliverio Singh MD at [place] [facility] LAPAROSCOPY TOTAL HYSTX, UTERUS > 250GM TUBE/OVARY N/A 07/21/2024 ROBOTIC LAPAROSCOPIC HYSTERECTOMY WITH REMOVAL TUBES AND OVARIES FOR UTERUS GREATER THAN 250GM performed by Raymundo Iyer MD at [place] [facility] [place],SINGLE/MULT BIOPSY N/A 07/21/2024 LAPAROSCOPIC RETROPERITONEAL LYMPH NODE SAMPLING performed by Raymundo Iyer MD at [facility] MISCELLANEOUS ORDER ([facility] ONLY) ACT 112 SIGNED, Dr. Varela (11-11-2019) PELVIC EXAM UNDER ANESTHESIA, NOT LOCAL N/A 07/21/2024 PELVIC EXAMINATION UNDER ANESTHESIA performed by Raymundo Iyer MD at [place] [facility] [place] APPENDECTOMY REMOVE CATARACT, INSERT LENS PROSTH Left 04/13/2021 LEFT EXTRACAPSULAR CATARACT REMOVAL WITH INTRAOCULAR LENS performed by Jaret Trotter MD at OR [facility] REMOVE CATARACT, INSERT LENS PROSTH Right 05/01/2021 RIGHT EXTRACAPSULAR CATARACT REMOVAL WITH INTRAOCULAR LENS performed by Jaret Trotter MD at OR [facility] REPAIR DETACHED RETINA, VITRECTOMY Left 11/15/2019 23G PPV/EL/SF6 20% for mac-off RD OS Current Outpatient Medications Medication Sig Dispense Refill ASPIRIN 81 MG PO TABS Take by mouth. (Patient not taking: Reported on 07/21/2024) traMADol HCl 50 MG Oral Tablet (Ultram) Take 1 Tablet by mouth every 4 hours as needed for moderateor severe pain 20 Tablet 0 Ondansetron HCl 4 MG Oral Tablet Take 1 Tablet by mouth every 8 hours as needed for Nausea. 20 Tablet 0 Senna 8.6 MG Oral Tablet Take 1 Tablet by mouth daily as needed for Constipation for up to 1 dose. 14 Tablet 0 Simethicone 80 MG Oral Tablet Chewable (Mylicon) Chew & swallow 1 Tablet by mouth as needed forGas. 30 Tablet 0 ALPRAZolam 0.5 MG Oral Tablet (xaNAX) TAKE 1 TABLET BY MOUTH ONCE DAILY AT BEDTIME NEEDED FOR ANXIETY 15 Tablet 0 No current facility-administered medications for this visit. 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 Tobacco Use Smoking status: Former Current packs/day: 0.00 Average packs/day: 1 pack/day for 29.0 years (29.0 ttl pk-yrs) Types: Cigarettes Start date: [birth year]/05/1949 Quit date: 12/05/1978 Years since quittin.7 Smokeless tobacco: Never Vaping Use Vaping status: Never Used Substance and Sexual Activity Alcohol use: No Drug use: No Sexual activity: Not Currently Comment: Other Topics Concern Service Not Asked Blood Transfusions Not Asked Caffeine Concern Yes Comment: Coffee (1cup/am) Occupational Exposure Not Asked Hobby Hazards Not Asked Sleep Concern Not Asked Stress Concern Not Asked Weight Concern Not Asked Special Diet Not Asked Back Care Not Asked Exercise Not Asked Bike Helmet Not Asked Seat Belt Not Asked Self-Exams Not Asked Social History Narrative Not on file Social Determinants of Health Financial Resource Strain: Not on file Food Insecurity: No Food Insecurity (04/04/2021) Hunger Vital Sign Worried About Running Out of Food in the Last Year: Never true Ran Out of Food in the Last Year: Never true Transportation Needs: Not on file Social Connections: Unknown (04/13/2024) Social Connections How often do you feel lonely or isolated from those around you? (Adult - for ages 18 years and over): Not on file Housing Stability: Not on file On Exam: LMP (LMP Unknown) BP 168/79 (BP Site: Left Arm, BP Position: Sitting, BP Cuff Size: Regular) | Pulse 81 | Temp 36.4 °C (97.6 °F) (Tympanic) | Ht 1.613 m (5' 3.5") | Wt 66 kg (145 lb 8 oz) | LMP (LMP Unknown) | SpO2 94% | BMI 25.37 kg/m² | BSA 1.72 m² Constitutional: Patient is alert, cooperative and oriented x 3. Well built female, Patient is in noacute distress. HEENT: No icterus, no pallor, Throat and pharynx normal. Sinuses are non-tender. Neck: Supple and without lymphadenopathy or masses. No JVD. No Palpable supraclavicular lymph nodes. Lungs: Clear to auscultation. Bilateral symmetric air entry. No wheezing or rhonchi. Cardiovascular: Normal heart sounds, no murmurs.Regular rate and rhythm. Abdomen: Soft, nontender, no hepatomegaly, no splenomegaly. Bowel sounds are normal. Neurological: No gross focal neurological deficit; walks with a normal gait. Extremities: No finger clubbing, No cyanosis. No leg edema. Skin:: No skin rash. SPINE: No spinal or paraspinal tenderness. LABS: Blood tests done on 07/15/2024: - Normal CBCD - BUN/creat: 11/0.9, calcium 9.7 IMAGING: As described above. ASSESSMENT AND PLAN: 83-year-old female, a case of uterine clear cell carcinoma S/P resection on 07/21/2024, [id number] N1a, stage IIIC1, lymphovascular perineural invasion noted, HER2 negative, MSI stable, lung nodules about 3 to 5 mm at least [address] Vera suggested combined chemotherapy with cisplatin and radiation treatment followed by systemic chemotherapy followed by brachytherapy. I checked with Dr. Oliver and they have discussed her case in the multidisciplinary clinic, theyreviewed the imaging study, they are concerns about lung nodules and they are suggesting to start systemic chemotherapy with Paclitaxel and carboplatin followed by pelvic radiation. I spoke with her on the phone on 08/27/2024 and discussed about starting systemic chemotherapy with Paclitaxel and carboplatin 1st. She is scheduled for port placement at [facility]. Paclitaxel at 175 mg/m² on day 1 Carboplatin at AUC of 6 on day 1 Repeating every 21 days x6. Prophylactic Pegfilgrastim to prevent febrile neutropenia ( she is at high-risk for febrile neutropenia with her agent comorbid conditions and high-dose chemotherapy). She will come early next week for chemotherapy teaching, I will take a consent for the chemotherapyat the same time. Once we start treatment, will see her before the 2nd cycle of chemotherapy Regarding breast mass, will get mammogram and sonogram for further evaluation. Thanks for the consultation. Dr. Avinash Reid Hem/Onc (This note was completed using the dictation program Fluency Direct. As such, there may be misspellings word substitutions, or other variations that should not change the essence of the clinical content of this encounter note. If there is need for further clarification, please direct questions to the provider listed above.) documented in this encounter Nursing Notes * Yoli Bobo CMA - 08/25/2024 9:40 AM EDT Patient identifed by name and birthdate Do you have any concerns about pain management for today's visit? No Living Will or Advance Directive for Health Care as noted on the problem list. [facility] is a way you can talk to your provider on line through e-mail. Would you like to sign up? I can activate it for you? ALREADY ACTIVE Filed Vitals: 08/25/24 0939 BP: 168/79 Pulse: 81 Temp: 36.4 °C (97.6 °F) TempSrc: Tympanic SpO2: 94% Weight: 66 kg (145 lb 8 oz) Height: 1.613 m (5' 3.5") Patient was instructed to not get up [...] documented in this encounter Miscellaneous Notes * Addendum Note - Avinash Reid MD - 08/27/2024 1:42 PM EDTAddended by: AVINASH REID on: 08/27/2024 01:42 PM Modules accepted: Orders documented in this encounter Plan of Treatment Upcoming Encounters Date Type Department Care Team (Latest Contact Info) Description 08/31/2024 10:15 AM EST Pt Ed by Nurse Hematology/Oncology State Dru Rios [address] [place] [phone] Nurse Maia Hem Onc [place] [address] [place] [address] 09/03/2024 11:30 AM EST Hospital Encounter OR [facility], Operating Room, [facility] - 4th Floor [address] [place] [address] [place] [address] Onofre Mix MD [address] [facility] [place] [address] 09/03/2024 11:30 AM EST - 09/03/2024 12:24 PM EST Surgery OR [facility], Operating Room, [facility] - 4th Floor [address] [place] [address] Onofre Mix MD [address] [place] [address] INSERT TUNNELED CENTRAL VENOUS ACCESS WITH SUBQ PORT 11/24/2024 1:00 PM EST Office Visit Gynecology/Oncology , [place] [address] [place] [address] Mauricio Ramirez PA-C [address] [place] [address] Scheduled Orders Name Type Priority Associated Diagnoses Orde r Schedule IR VENOUS ACCESS MEDIPORT Medical Imaging Routine Endometrial cancer (HCC) Expected: 09/01/2024, Expires: 09/25/2025 MAMMOGRAM DIAGNOSTIC PAWAN BILATERAL Medical Imaging Routine Endometrial cancer (HCC) Mass of upper outer quadrant of left breast Expected: 08/25/2024, Expires: 09/25/2025 Scheduled Procedures Name Priority Associated Diagnoses Date/Ti [...] Additional history exists CKD PHOS USE SMARTSET 15483 03/23/202502/25, 04/07/2023, 03/27/2022, Additional history exists CKD HGB USE SMARTSET 84109 07/15/202507/15, 06/14/2024, 06/14/2024, Additional history exists HPV [...] this encounter Medical Devices Implanted Type Area Group Sales Representative Device Identifier Shelf Expiration Date Model / Serial / Lot Stent Assurant [id number] - [id number] Implanted:Qty: 1 on 06/24/2017 by Oliverio Singh MD [place] [facility] Right: Iliac [employer] : VASCULAR 11/22/2017 [id number] / / [id number] Lens Intraoc 17.0 - [id number] - [id number] Implanted:Qty: 1 on 04/13/2021 by Jaret Trotter MD at OR [facility] Left: Eye [employer]USCH [employer] LOMB 09/25/2025 [id number] / [id number] / [id number] Lens Intraoc 17.0 - [id number] - [id number] Implanted:Qty: 1 on 05/01/2021 by Jaret Trotter MD at OR [facility] Right: Eye BAUSCH & LOMB 11/26/2025 [id number] / [id number] / [id number] documented as of this encounter Visit Diagnoses Diagnosis Endometrial cancer (HCC)- Primary Malignant neoplasm of corpus uteri, except isthmus Mass of upper outer quadrant of left breast Endometrial cancer (HCC) Malignant neoplasm of corpus [...] Power of Attor osmani? No Care Teams Stretching Machine Operator Relationship Specialty Start Date End Date Ila Fung DO [address] [place] [address] PCP - General Family Medicine 10/10/16 documented as of this encounter
--- OUTSIDE RECORDS SUMMARY | 2025-02-04 02:44 | External Medical Summary | Summary of Care ---
Author Name Unknown Organization [facility] Address [address] [facility] [place] [address] Phone [phone] Care Team Providers Care Standard Machine Stitcher Name Role Phone Ila Fung DO Primary Care Provider Reason for Visit * Reason Onset Date Comments Precert Future 08/27/2024 Carbo/ taxol/ fu lphila Encounter Details Date Type Department Care Team (Late st Contact Info) Description 08/27/2024 Telephone Hematology/Oncology Treatment, [place] [address] [place] [address] Nils Reid MD [address] [place] [address] Precert Future (Carbo/ taxol/ fulphila) Allergies No [...] 2 with diabetic peripheral neuropathy Atherosclerosis of [place] ar brandon of right lower extremity with [...] mRNA, LNP-s, No Pre serve, 2-Dose Series ([employer]) 01/31/2022,07/26/2021,01/13/2021,12/23 Pneumococcal Polysaccharide PPV23 (Pneumovax) 10/08/2022 Season [...] EDT Order received for carbo/ taxol/ fulphila. [place] plan built. Waiting for auth. Nurse education 08/31/24 *Patient will need to meet with Dr Reid as well for consent* Patient will need hep B labs Port placement 09/03/24 documented in this encounter Plan of Treatment Upcoming Encounters Date Type Department Care Team (Latest Contact Info) Description 08/31/2024 10:15 AM EST Pt Ed by Nurse Hematology/Oncology State Dru Rios [address] [place] [phone] Nurse Maia Hem Onc [place] [address] [place] [address] 09/03/2024 11:30 AM EST Hospital Encounter OR [facility], Operating Room, [facility] - 4th Floor [address] [place] [address] Onofre Mix MD [address] [place] [address] 09/03/2024 11:30 AM EST - 09/03/2024 12:24 PM EST Surgery OR [facility], Operating Room, [facility] - 4th Floor [address] [place] [address] Onofre Mix MD [address] [place] [address] INSERT TUNNELED CENTRAL VENOUS ACCESS WITH SUBQ PORT 11/24/2024 1:00 PM EST Office Visit Gynecology/Oncology , [place] [address] [place] [address] Mauricio Ramirez PA-C [address] [place] [phone] Scheduled Orders Name Type Priority Associated Diagnoses [...] Additional history exists CKD PHOS USE SMARTSET 24069 03/23/202502/25, 04/07/2023, 03/27/2022, Additional history exists CKD HGB USE SMARTSET 15775 07/15/202507/15, 06/14/2024, 06/14/2024, Additional history exists HPV [...] this encounter Medical Devices Implanted Type Area Switchboard And Control Room Operator Device Identifier Shelf Expiration Date Model / Serial / Lot Stent Assurant [id number] - [id number] Implanted:Qty: 1 on 06/24/2017 by Oliverio Singh MD [place] [facility] [place]: Iliac [employer] : VASCULAR 11/22/2017 [id number] / / [id number] Lens Intraoc 17.0 - [id number] - [id number] Implanted:Qty: 1 on 04/13/2021 by Jaret Trotter MD at OR [facility] Left: Eye [employer]OMB 09/25/2025 [id number] / [id number] / [id number] Lens Intraoc 17.0 - [id number] - [id number] Implanted:Qty: 1 on 05/01/2021 by Jaret Trotter MD at OR [facility] Right: Eye [employer]OMB 11/26/2025 [id number] / [id number] / [id number] documented as of this encounter Visit Diagnoses [...] Power of Attor osmani? No Care Teams Standard Machine Stitcher Relationship Specialty Start Date End Date Ila Fung DO [address] [place] [address] PCP - General Family Medicine 10/10/16 documented as of this encounter
--- OUTSIDE RECORDS SUMMARY | 2025-02-04 02:44 | External Medical Summary | Summary of Care ---
Author Name Unknown Organization [facility] Address [address] [facility] [place] [address] Phone [phone] Care Team Providers Care Deputy Chief Magistrate Name Role Phone Ila Fung DO Primary Care Provider Reason for Visit * Reason Onset Date Comments Precert Future 08/27/2024 Carbo/ taxol/ fu lphila Encounter Details Date Type Department Care Team (Late st Contact Info) Description 08/27/2024 Telephone Hematology/Oncology Treatment, [place] [address] [place] [address] Nils Reid MD [address] [place] [address] Precert Future (Carbo/ taxol/ fulphila) Allergies No [...] 2 with diabetic peripheral neuropathy Atherosclerosis of [place] ar brandon of right lower extremity with [...] mRNA, LNP-s, No Pre serve, 2-Dose Series ([employer]) 01/31/2022,07/26/2021,01/13/2021,12/23 Pneumococcal Polysaccharide PPV23 (Pneumovax) 10/08/2022 Season [...] EDT Order received for carbo/ taxol/ fulphila. [place] plan built. Waiting for auth. Nurse education 08/31/24 *Patient will need to meet with Dr Reid as well for consent* Patient will need hep B labs Port placement 09/03/24 documented in this encounter Plan of Treatment Upcoming Encounters Date Type Department Care Team (Latest Contact Info) Description 08/31/2024 10:15 AM EST Pt Ed by Nurse Hematology/Oncology State [facility] Rios [address] [place] [phone] Nurse Maia Hem Onc [place] [place] [address] 09/03/2024 11:30 AM EST Hospital Encounter OR [facility], Operating Room, [facility] - 4th Floor [address] [place] [phone] Onofre Mix MD [address] [place] [address] 09/03/2024 11:30 AM EST - 09/03/2024 12:24 PM EST Surgery OR [facility], Operating Room, [facility] - 4th Floor [address] [address] Onofre Mix MD [address] [place] [address] INSERT TUNNELED CENTRAL VENOUS ACCESS WITH SUBQ PORT 11/24/2024 1:00 PM EST Office Visit Gynecology/Oncology , [place] [address] [place] [address] Mauricio Ramirez PA-C [address] [place] [phone] Scheduled Orders Name Type Priority Associated Diagnoses [...] Additional history exists CKD PHOS USE SMARTSET 57985 03/23/202502/25, 04/07/2023, 03/27/2022, Additional history exists CKD HGB USE SMARTSET 65998 07/15/202507/15, 06/14/2024, 06/14/2024, Additional history exists HPV [...] encounter Medical Devices Implanted Type Area Associate Account Director Device Identifier Shelf Expiration Date Model / Serial / Lot Stent Assurant [id number] - [id number] Implanted:Qty: 1 on 06/24/2017 by Oliverio Singh MD at [place] [facility] [place] Right: Iliac [employer] : VASCULAR 11/22/2017 [id number] / / [id number] Lens Intraoc 17.0 - [id number] - [id number] Implanted:Qty: 1 on 04/13/2021 by Jaret Trotter MD at OR [facility] Left: Eye [employer]USCH [employer] LOMB 09/25/2025 [id number] / [id number] / [id number] Lens Intraoc 17.0 - [id number] - [id number] Implanted:Qty: 1 on 05/01/2021 by Jaret Trotter MD at OR [facility] Right: Eye BAUSCH [employer] LOMB 11/26/2025 [id number] / [id number] / [id number] documented as of this encounter Visit Diagnoses [...] of Attor osmani? No Care Teams Deputy Chief Magistrate Relationship Specialty Start Date End Date Ila Fung DO [address] [place] [address] PCP - General Family Medicine 10/10/16 documented as of this encounter
--- OUTSIDE RECORDS SUMMARY | 2025-02-04 02:44 | External Medical Summary | Summary of Care ---
Author Name Unknown Organization [facility] Address [address] [facility] [place] [address] Phone [phone] Care Team Providers Care Estimator Printing Name Role Phone Ila Fung DO Primary Care Provider Reason for Visit * Reason Onset Date Comments Precert Future 08/27/2024 Carbo/ taxol/ fu lphila Encounter Details Date Type Department Care Team (Late st Contact Info) Description 08/27/2024 Telephone Hematology/Oncology Treatment, [place] [address] [place] [address] Nils Reid MD [address] [place] [address] Precert Future (Carbo/ taxol/ fulphila) Allergies No [...] 2 with diabetic peripheral neuropathy Atherosclerosis of [place] ar brand[place] of right lower extremity with [...] mRNA, LNP-s, No Pre serve, 2-Dose Series ([employer]) 01/31/2022,07/26/2021,01/13/2021,12/23 Pneumococcal Polysaccharide PPV23 (Pneumovax) 10/08/2022 [...] EDT Order received for carbo/ taxol/ fulphila. [place] plan built. Waiting for auth. Nurse education 08/31/24 *Patient will need to meet with Dr Reid as well for consent* Patient will need hep B labs/ prescriptions sent after education visit. Port placement 09/03/24 documented in this encounter Plan of Treatment Upcoming Encounters Date Type Department Care Team (Latest Contact Info) Description 08/31/2024 10:15 AM EST Pt Ed by Nurse Hematology/Oncology [place] Carvalho [place] [address] [place] [address] Nurse Maia Hem Onc Scen[place] [address] [place] [address] 09/03/2024 11:30 AM EST Hospital Encounter OR [facility], Operating Room, [facility] - 4th Floor [address] [place] [phone] Onofre Mix MD [address] [place] [address] 09/03/2024 11:30 AM EST - 09/03/2024 12:24 PM EST Surgery OR [facility], Operating Room, [facility] - 4th Floor [address] [place] [address] Onofre Mix MD [address] [place] [address] INSERT TUNNELED CENTRAL VENOUS ACCESS WITH SUBQ PORT 11/24/2024 1:00 PM EST Office Visit Gynecology/Oncology , [place] [address] [place] [address] Mauricio Ramirez PA-C [address] [place] [address] Scheduled Orders Name Type Priority Associated Diagnoses [...] Additional history exists CKD PHOS USE SMARTSET 35405 03/23/202502/25, 04/07/2023, 03/27/2022, Additional history exists CKD HGB USE SMARTSET 72529 07/15/202507/15, 06/14/2024, 06/14/2024, Additional history exists HPV [...] this encounter Medical Devices Implanted Type Area Derrick Worker Device Identifier Shelf Expiration Date Model / Serial / Lot Stent Assurant [id number] - [id number] Implanted:Qty: 1 on 06/24/2017 by Oliverio Singh MD [place] [facility] [place] Right: Iliac [employer] : VASCULAR 11/22/2017 [id number] / / [id number] Lens Intraoc 17.0 - [id number] - [id number] Implanted:Qty: 1 on 04/13/2021 by Jaret Trotter MD at OR [facility] Left: Eye BAUSCH [employer] LOMB 09/25/2025 [id number] / [id number] / [id number] Lens Intraoc 17.0 - [id number] - [id number] Implanted:Qty: 1 on 05/01/2021 by Jaret Trotter MD at OR [facility] Right: Eye BAUSCH & LOMB 11/26/2025 [id number] / [id number] / [id number] documented as of this encounter Visit Diagnoses [...] Power of Attor osmani? No Care Teams Estimator Printing Relationship Specialty Start Date End Date Ila Fung DO [address] [place] [address] PCP - General Family Medicine 10/10/16 documented as of this encounter
--- OUTSIDE RECORDS SUMMARY | 2025-02-04 02:44 | External Medical Summary | Summary of Care ---
Author Name Unknown Organization [facility] Address [address] [facility] [place] [address] Phone [phone] Care Team Providers Care Production Control Technologist Name Role Phone Ila Fung DO Primary Care Provider [phone] Reason for Referral * Precert (Within 10 days (routine)) - Authorized Specialty Diagnoses / Procedures Referred By Contac t Referred To Contact Radiology Diagnoses Endometrial cancer (HCC) Procedures IR VENOUS ACCESS MEDIPORT Avinash Reid MD [address] [place] [address] Referral ID Status Reason Start Date Expiration Date V isits Requested Visits Authorized [id number] Authorized 09/01/2024 999 999 Reason for Visit * Reason Comments NEW PATIENT INTERIOR DECORATOR PAINTING Encounter Details Date Type Department Care Team (Late st Contact Info) Description 08/25/2024 9:45 AM EDT Office Visit Hematology/Oncology [place] [address] [place] [phone] Avinash Reid MD [address] [place] [address] Endometrial cancer (HCC)*; Mass of upper outer [...] 2 with diabetic peripheral neuropathy Atherosclerosis of [place] ar [place] of right lower extremity with [...] EDT Hematology/Oncology Outpatient Consult Note Nikhil Tanner [place] [address] [facility] [place] [address] JYOTI IZAGUIRRE MR # [id number] :1940 83-year-old female, REASON FOR CONSULTATION: Consultation [...] chemotherapy (she will have radiation treatment at [facility]). Also planning for brachytherapy DIAGNOSTIC WORKUP: [...] on xanax from prior dr Pulmonary embolus ([facility]) 2012 Type 2 diabetes, HbA1c goal < 7% ([facility]) Past Surgical History: Procedure Laterality Date BUNION CORRECTED WITH DOUBLE OSTEOTOMY 15 years ago bilateral COLONOSCOPY, DIAGNOSTIC (RECTUM) 11/30/2013 COLONOSCOPY FLEXIBLE PROXIMAL DIAGNOSTIC performed by Belkys Allred DO at [facility]OS[facility] HEMORRHOIDECTOMY,EXTERNAL, 2 + COLUMNS 50 years ago painful hemorrhoids prior to procedure ILIAC ART. REVASC W/ STENT+ANGIOPLASTY Right 06/24/2017 ILIAC ARTERY REVASC W/ STENT+ANGIOPLASTY performed by Oliverio Singh MD at OR [facility] LAPAROSCOPY TOTAL HYSTX, UTERUS > 250GM TUBE/OVARY N/A 07/21/2024 ROBOTIC LAPAROSCOPIC HYSTERECTOMY WITH REMOVAL TUBES AND OVARIES FOR UTERUS GREATER THAN 250GM performed by Raymundo Iyer MD at OR [facility] LAPAROSCOPY,SINGLE/MULT BIOPSY N/A 07/21/2024 LAPAROSCOPIC RETROPERITONEAL LYMPH NODE SAMPLING performed by Raymundo Iyer MD at [facility] MISCELLANEOUS ORDER ([facility] ONLY) ACT 112 SIGNED, Dr. Varela (11-11-2019) PELVIC EXAM UNDER ANESTHESIA, NOT LOCAL N/A 07/21/2024 PELVIC EXAMINATION UNDER ANESTHESIA performed by Raymundo Iyer MD at OR [facility] [place] APPENDECTOMY REMOVE CATARACT, INSERT LENS PROSTH Left 04/13/2021 LEFT EXTRACAPSULAR CATARACT REMOVAL WITH INTRAOCULAR LENS performed by Jaret Trotter MD at OR [facility] REMOVE CATARACT, INSERT LENS PROSTH Right 05/01/2021 RIGHT EXTRACAPSULAR CATARACT REMOVAL WITH INTRAOCULAR LENS performed by Jaret Trotter MD at OR [facility] REPAIR DETACHED RETINA, VITRECTOMY Left 11/15/2019 23G [...] level: Not on file Occupational History 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 Paclitaxel at 175 mg/m² on day 1 [...] [place] [address] [place] [phone] Nurse Maia Hem Onc Scenery [address] [place] [address] 09/03/2024 11:30 AM EST Hospital Encounter OR [facility], Operating Room, [facility] - 4th Floor [address] [place] [phone] Onofre Mix MD [address] [place] [address] 09/03/2024 11:30 AM EST - 09/03/2024 12:24 PM EST Surgery OR [facility], Operating Room, [facility] - 4th Floor [address] [place] [phone] Onofre Mix MD [address] [place] [address] INSERT TUNNELED CENTRAL VENOUS ACCESS WITH SUBQ PORT 11/24/2024 1:00 PM EST Office Visit Gynecology/Oncology , [place] [address] [place] [address] Mauricio Ramirez PA-C [address] [place] [phone] Scheduled Orders Name Type Priority Associated Diagnoses [...] Additional history exists CKD PHOS USE SMARTSET 22287 03/23/202502/25, 04/07/2023, 03/27/2022, Additional history exists CKD HGB USE SMARTSET 07957 07/15/202507/15, 06/14/2024, 06/14/2024, Additional history exists HPV [...] this encounter Medical Devices Implanted Type Area Ceo And President Device Identifier Shelf Expiration Date Model / Serial / Lot Stent [employer] [id number] - [id number] Implanted:Qty: 1 on 06/24/2017 by Oliverio Singh MD at OR [facility] Right: Iliac [employer] : VASCULAR 11/22/2017 [id number] / / [id number] Lens Intraoc 17.0 - [id number] - [id number] Implanted:Qty: 1 on 04/13/2021 by Jaret Trotter MD at OR [facility] Left: Eye BAUSCH & LOMB 09/25/2025 [id number] / [id number] / [id number] Lens Intraoc 17.0 - [id number] - [id number] Implanted:Qty: 1 on 05/01/2021 by Jaret Trotter MD at OR [facility] Right: Eye BAUSCH & LOMB 11/26/2025 [id number] / [id number] / [id number] documented as of this encounter Visit Diagnoses [...] Power of Attor osmani? No Care Teams Production Control Technologist Relationship Specialty Start Date End Date Ila Fung DO [address] [place] [address] PCP - General Family Medicine 10/10/16 documented as of this encounter
--- OUTSIDE RECORDS SUMMARY | 2025-02-04 02:44 | External Medical Summary | Summary of Care ---
Author Name Unknown Organization [facility] Address [address] [facility] [place] [address] Phone [phone] Care Team Providers Care Household Cook Name Role Phone Ila Fung DO Primary Care Provider Reason for Visit * Reason Onset Date Comments Precert Future 08/27/2024 Carbo/ taxol/ fu lphila Encounter Details Date Type Department Care Team (Late st Contact Info) Description 08/27/2024 Telephone Hematology/Oncology Treatment, [place] [address] [place] [address] Nils Reid MD [address] [place] [address] Precert Future (Carbo/ taxol/ fulphila) Allergies No [...] mRNA, LNP-s, No Pre serve, 2-Dose Series ([employer] 01/31/2022,07/26/2021,01/13/2021,12/23 Pneumococcal Polysaccharide PPV23 (Pneumovax) 10/08/2022 Season [...] EDT Order received for carbo/ taxol/ fulphila. [place] plan built. Waiting for auth. Nurse education 08/31/24 *Patient will need to meet with Dr Reid as well for consent* Patient will need hep B labs/ prescriptions sent after education visit. Port placement 09/03/24 documented in this encounter Plan of Treatment Upcoming Encounters Date Type Department Care Team (Latest Contact Info) Description 08/31/2024 10:15 AM EST Pt Ed by Nurse Hematology/Oncology [place] [address] [place] [phone] Nurse Maia Hem Onc Scenery [address] [place] [address] 09/03/2024 11:30 AM EST Hospital Encounter OR [facility], Operating Room, [facility] - 4th Floor [address] [place] [phone] Onofre Mix MD [address] [place] [address] 09/03/2024 11:30 AM EST - 09/03/2024 12:24 PM EST Surgery OR [facility], Operating Room, [facility] - 4th Floor [address] [place] [phone] Onofre Mix MD [address] [place] [address] INSERT TUNNELED CENTRAL VENOUS ACCESS WITH SUBQ PORT 11/24/2024 1:00 PM EST Office Visit Gynecology/Oncology , [place] [address] [place] [address] Mauricio Ramirez PA-C [address] [place] [address] Scheduled Orders Name Type Priority [...] Additional history exists CKD PHOS USE SMARTSET 72998 03/23/202502/25, 04/07/2023, 03/27/2022, Additional history exists CKD HGB USE SMARTSET 77917 07/15/202507/15, 06/14/2024, 06/14/2024, Additional history exists HPV [...] this encounter Medical Devices Implanted Type Area Export Packer Device Identifier Shelf Expiration Date Model / Serial / Lot Stent [employer]urant [id number] - [id number] Implanted:Qty: 1 on 06/24/2017 by Oliverio Singh [place] [facility] [place]: Iliac [employer] : VASCULAR 11/22/2017 [id number] / / [id number] Lens Intraoc 17.0 - [id number] - [id number] Implanted:Qty: 1 on 04/13/2021 by Jaret Trotter MD at OR [facility] Left: Eye BAUSCH & LOMB 09/25/2025 [id number] / [id number] / [id number] Lens Intraoc 17.0 - [id number] - [id number] Implanted:Qty: 1 on 05/01/2021 by Jaret Trotter MD at OR [facility] Right: Eye BAUSCH & LOMB 11/26/2025 [id number] / [id number] / [id number] documented as of this encounter Visit Diagnoses [...] Power of Attor osmani? No Care Teams Household Cook Relationship Specialty Start Date End Date Ila Fung DO [address] [place] [address] PCP - General Family Medicine 10/10/16 documented as of this encounter
--- OUTSIDE RECORDS SUMMARY | 2025-02-04 02:45 | External Medical Summary | Summary of Care ---
Author Name Unknown Organization [facility] Address [address] [place] [address] Phone [phone] Care Team Providers Care Handle Sander Operator Name Role Phone Ila Fung DO Primary Care Provider Reason for Visit * Reason Onset Date Comments Other 08/10/2024 Follow Up 08/10/2024 Encounter Details Date Type Department Care Team (Late st Contact Info) Description 08/10/2024 Telephone Gynecology/Oncology, [place] [address] [place] [address] Raymundo Iyer MD [address] [place] [address] Other; Follow Up Allergies No known active allergiesdocumented as of this encounter (statuses as of 08/12/2024) Medications Medication Sig Dispensed Refills Start Date [...] as of this encounter (statuses as of 08/12/2024) Active Problems Problem Noted Date Diagnosed Date [...] 2 with diabetic peripheral neuropathy Atherosclerosis of [place] ar [place] of right lower extremity with intermittent claudication 06/20/2017 Former smoker 06/20/2017 HTN, goal below 140/90 02/15/2015 Alcohol dependence in remission 06/15/2013 Hyperlipidemia with target LDL less than 100 Overview: ICD-10 update of inactive term Type 2 diabetes, HbA1C goal < 8% documented as of this encounter (statuses as of 08/12/2024) Resolved Problems Problem Noted Date Diagnosed Date [...] as of this encounter (statuses as of 08/12/2024) Immunizations Name Administration Dates Next Due COVID-19 mRNA, LNP-s, No Pre serve, 2-Dose Series ([employer]) 01/31/2022,07/26/2021,01/13/2021,12/23 Pneumococcal Polysaccharide PPV23 (Pneumovax) 10/08/2022 Season [...] encounter Miscellaneous Notes * Telephone Encounter - Jennifer Yun PA-C - 08/12/2024 8:38 AM EDT Spoke with Dr Vera from Radiation Oncology, he confirmed that the patient is being seen next week. Answered his questions regarding patient care and staging. Provided phone number with our contact information should he have further questions Jennifer Yun PA-C Gynecologic Oncology 08/12/2024 * Telephone Encounter - Silvana Kendrick OSA - 08/10/2024 3:02 PM EDT Sampson Vera MD from [facility] in [place] called and would like to discuss pt case with Raymundo Iyer MD prior to scheduling, they are planning to call pt in for an appointment in the next week or two. documented in this encounter Plan of Treatment Scheduled Procedures Name Priority Associated Diagnoses Date/Ti [...] Additional history exists CKD PHOS USE SMARTSET 29048 03/23/202502/25, 04/07/2023, 03/27/2022, Additional history exists CKD HGB USE SMARTSET 31610 07/15/202507/15, 06/14/2024, 06/14/2024, Additional history exists HPV [...] this encounter Medical Devices Implanted Type Area Architectural Intern Device Identifier Shelf Expiration Date Model / Serial / Lot Stent [employer]ant [id number] - [id number] Implanted:Qty: 1 on 06/24/2017 [place]io Singh [place] [facility] [place]: Iliac [employer] : VASCULAR 11/22/2017 [id number] / / [id number] Lens Intraoc 17.0 - [id number] - [id number] Implanted:Qty: 1 on 04/13/2021 by Jaret Trotter MD at OR [facility] Left: Eye BAUSCH & LOMB 09/25/2025 [id number] / [id number] / [id number] Lens Intraoc 17.0 - [id number] - [id number] Implanted:Qty: 1 on 05/01/2021 by Jaret Trotter MD at OR [facility] Right: Eye BAUSCH & LOMB 11/26/2025 [id number] / [id number] / [id number] documented as of this encounter Advance Directives [...] Power of Attor osmani? No Care Teams Handle Sander Operator Relationship Specialty Start Date End Date Ila Fung DO [address] [place] [address] PCP - General Family Medicine 10/10/16 documented as of this encounter
[2025-02-04] MEDS ORDERED: GLUCOSE 10 TAB/TUBE PO PRN (05:02)
[2025-02-04] MEDS ORDERED: GLUCAGON FOR INJ 1 MG VIAL SQ PRN (05:02)
[2025-02-04] MEDS ORDERED: GLUCOSE 40% GEL 15 GM TUBE PO PRN (05:02)
[2025-02-04] MEDS ORDERED: DEXTROSE 50% 50 ML SYRINGE IV PRN (05:02)
[2025-02-04] MEDS ORDERED: CARBOHYDRATES FOR HYPOGLYCEMIA PO PRN (05:02)
--- NOTE | 2025-02-04 05:04 | History & Physical Report ---
Date of Service February 03, 2025 Assessment & Plan (1) Suicidal ideation: Plan: 84year-old female with past medical history significant for type 2 diabetes, diabetic neuropathy, CKD stage III, hyperlipidemia, peripheral vascular disease, hypertension, history of alcoholism in remission, anxiety generalized, history of uterine clear-cell carcinoma s/p surgery and declines any further chemo or radiation and also history of left breast carcinoma declines workup currently under home hospice comes because of suicidal ideation. Patient lives alone. Patient called her home health nurse and told her that she is going to take all her medications so that she can go to sleep and do not wake up. She says she does not want to wait until she is too weak to do anything. Her home health nurse called police. Hospice nurse also removed all the medications from her home. Patient was initially 302. But in the ER it was revoked as patient is on hospice care and has no history of psychiatric illness in the past. The hospice wanted the patient to go to [facility] or assisted living and they do not want to take care of her in her home. Patient lives alone. Ambulates without support. Patient says she can cook her own food. She has friends who help her. Hospice nurse comes once a week. Son lives in [place]. Denies any headache. No blurred vision. No runny nose or sore throat. No cough. No fevers. No chest pain or shortness of breath. No nausea. Currently no abdominal pain. Normal bowel and bladder movements. Hemodynamics are okay. Patient says currently she does not have any thoughts to hurt herself. She has pain in her left breast region where she has cancer. Patient says she also gets pain in her lower abdomen. Patient is on fentanyl patch. Patient thinks her pain medications needs to be increased. Patient states she does not want any treatment for her cancer. Suicidal ideation Called hospice nurse and told that she wanted to take all of her medications so that she can go to sleep and do not wake up. She does not want to wait until she is too weak to do anything at that time. Currently denies any suicidal ideation Patient on home hospice for uterine and breast cancer One-on-one for now Suicidal precautions Psychiatry consulted in a.m. for further recommendations History of uterine cancer S/p surgery and currently declining any further treatments Left breast carcinoma and declines any further workup On home hospice Currently hospice recommends [facility] or assisted living Social service to help with placement and hospice care Palliative care consult Continue home fentanyl patch and alprazolam as needed Also placed on oxycodone as needed History of diabetes Currently not on medications Will follow HbA1c Will follow insulin sliding scale DVT prophylaxis Lovenox Disposition Medical floor CODE STATUS DNR/DNI per discussion with the patient History of Present Illness Chief Complaint: Suicidal ideation Primary Care Provider: MILAGRO PCP 84year-old female with past medical history significant for type 2 diabetes, diabetic neuropathy, CKD stage III, hyperlipidemia, peripheral vascular disease, hypertension, history of alcoholism in remission, anxiety generalized, history of uterine clear-cell carcinoma s/p surgery and declines any further chemo or radiation and also history of left breast carcinoma declines workup currently under home hospice comes because of suicidal ideation. Patient lives alone. Patient called her home health nurse and told her that she is going to take all her medications so that she can go to sleep and do not wake up. She says she does not want to wait until she is too weak to do anything. Her home health nurse called police. Hospice nurse also removed all the medications from her home. Patient was initially 302. But in the ER it was revoked as patient is on hospice care and has no history of psychiatric illness in the past. The hospice wanted the patient to go to [facility] or assisted living and they do not want to take care of her in her home. Patient lives alone. Ambulates without support. Patient says she can cook her own food. She has friends who help her. Hospice nurse comes once a week. Son lives in [place]. Denies any headache. No blurred vision. No runny nose or sore throat. No cough. No fevers. No chest pain or shortness of breath. No nausea. Currently no abdominal pain. Normal bowel and bladder movements. Hemodynamics are okay. Patient says currently she does not have any thoughts to hurt herself. She has pain in her left breast region where she has cancer. Patient says she also gets pain in her lower abdomen. Patient is on fentanyl patch. Patient thinks her pain medications needs to be increased. Patient states she does not want any treatment for her cancer. Past medical history. As mentioned above Past surgical history. Bilateral bunion correction. Colonoscopy and hemorrhoidectomy. Iliac artery revascularization with stent and angioplasty. Robotic laparoscopic hysterectomy with removal of tubes and ovaries for uterus greater than 250 g. Laparoscopic retroperitoneal lymph node sampling. [place] appendectomy. Bilateral cataracts. Repair of detached retina on left side. Social history. Currently living alone. Quit smoking 1978. Smoked 1 pack a day for 29 years. No alcohol use. No drug use. Family history. Father had diabetes. Stroke. Mother had diabetes. Glaucoma. Stroke. Sister has heart disorder. Sister had lung cancer. Sister had lymphoma. Allergies Allergy/AdvReac Type Severity Reaction Status Date / Time No Known Allergies Allergy Verified 11/15/19 09:39 Home Medications Medication Instructions Recorded Confirmed Type alprazolam 1 mg tablet 1 mg PO HS PRN Anxiety 02/03/25 02/03/25 History fentanyl 25 mcg/hr transdermal 1 patch transdermal Q72H 02/03/25 02/03/25 History patch Past Med/Surg History Problem List (Updated 02/04/25 @ 05:20 by Ilya Cisse MD) Suicidal ideation Hospice care (Acute) Encounter for pre-operative examination Head injury without skull fracture (Acute) Alcohol intoxication (Acute) Diabetes (Chronic) Avulsion of skin of finger (Acute) Medical History (Updated 02/04/25 @ 05:20 by Ilya Cisse MD) Arthritis Diabetes mellitus, type 2 Hx pulmonary embolism WAS ON BLOOD THINNERS FOR A LITTLE BIT Hypertension Hyperlipidemia Surgical History Hx of colonoscopy Hx of foot surgery RIGHT AND LEFT BUNIONECTOMY Status post vascular surgery STENT PLACED IN RIGHT SIDE FOR BLOCK IN FEMORAL ARTERY Hx of superior vena cava filter placement DUE TO BLOOD CLOT Social History Smoking Status: Former smoker Second Hand Exposure: No; Do You Dip or Chew Tobacco: No; Tobacco Cessation Education Requested by Patient: No Hx Alcohol Use: No Hx Substance Use: No Preferred Language: Italian Communication Ability: Effective Athletic Scout Required: No Beliefs That Will Affect Care: None Current Living Situation: Alone Other Information That Helps Us Care for You: No Feels Safe at Home: Yes Safety Concerns: Feels Safe At This Time Assistive Devices: Walker Review of Systems Review of Systems: All systems reviewed & are unremarkable except as noted in HPI & below Physical Exam Physical Exam: General- Not in distress Head- atraumatic Eyes- PERRL. ENT- oropharynx clear Neck- supple, no JVD. Lungs- clear to auscultation no wheezing or crackles Heart- regular rhythm; no murmur, no gallop. Abdomen- normal bowel sounds, soft, nontender, no distension Extremities- trace pretibial edema, no erythema seen Neuro- alert, oriented PERRL, no facial palsy; no dysarthria; moves extremities Results & Data Results & Data Vital Signs (Past 12 Hours) Vital Signs Temp Pulse Pulse Resp BP BP Pulse Ox 02/03/25 21:30 97 02/03/25 21:30 82 20 110/69 98 02/03/25 18:39 36.9 C 94 H 18 117/97 95 O2 Del Method 02/03/25 21:30 Room Air 02/03/25 21:30 Room Air 02/03/25 18:39 Room Air Diagnostic Findings Laboratory Results WBC 7.58 K/ul (4.8-10.8) 02/03/25 21:50 RBC 4.53 M/uL (4.20-5.40) 02/03/25 21:50 Hgb 10.7 g/dl (12.0-16.0) L 02/03/25 21:50 Hct 35.1 % (37.0-47.0) L 02/03/25 21:50 MCV 77.5 fL (80.0-100.0) L 02/03/25 21:50 MCH 23.6 pg (25.0-34.0) L 02/03/25 21:50 MCHC 30.5 g/dL (32.0-36.0) L 02/03/25 21:50 RDW Std Deviation 39.1 fL (36.4-46.3) 02/03/25:50 RDW Coeff of Mikey 13.9 % (11.5-14.5) 02/03/25 21:50 Plt Count 221 K/uL (130-400) 02/03/25 21:50 MPV 9.7 fL (9.4-12.4) 02/03/25 21:50 Immature Gran % (Auto) 0.3 % 02/03/25 21:50 Neut % (Auto) 61.3 % 02/03/25 21:50 Lymph % (Auto) 27.3 % 02/03/25 21:50 [place] % (Auto) 10.0 % 02/03/25:50 Eos % (Auto) 0.7 % 02/03/25 21:50 Baso % (Auto) 0.4 % 02/03/25 21:50 Neut # (Auto) 4.65 K/uL (1.40-6.50) 02/03/25 21:50 Lymph # (Auto) 2.07 K/uL (1.20-3.40) 02/03/25 21:50 [place] # (Auto) 0.76 K/uL (0.11-0.59) H 02/03/25 21:50 Eos # (Auto) 0.05 K/uL (0.00-0.50) 02/03/25 21:50 Baso # (Auto) 0.03 K/uL (0.00-0.20) 02/03/25 21:50 Immature Gran # (Auto) 0.02 K/uL (0.01-0.20) 02/03/25 21:50 Sodium 137 mmol/L (136-145) 02/03/25 21:50 Potassium 3.7 mmol/L (3.5-5.1) 02/03/25 21:50 Chloride 100 mmol/L (98-107) 02/03/25 21:50 Carbon Dioxide 28 mmol/L (21-32) 02/03/25 21:50 Anion Gap 9 (3-11) 02/03/25 21:50 BUN 19 mg/dl (6-23) 02/03/25 21:50 Creatinine 1.13 mg/dl (0.6-1.2) 02/03/25 21:50 Est Cr Clr Drug Dosing 33.3 ml/min 02/03/25 21:50 eGFR 47.97 02/03/25 21:50 BUN/Creatinine Ratio 16.8 (10-20) 02/03/25 21:50 Glucose 129 mg/dl (70-99(Fasting)) H 02/03/25 21:50 Calcium 9.4 mg/dl (8.6-10.3) 02/03/25 21:50 Total Bilirubin 0.6 mg/dl (0.2-1.0) 02/03/25 21:50 AST 14 U/L (13-39) 02/03/25 21:50 ALT 7 U/L (7-52) 02/03/25 21:50 Alkaline Phosphatase 75 U/L (34-104) 02/03/25 21:50 Total Protein 7.6 gm/dl (6.0-8.3) 02/03/25 21:50 Albumin 3.7 gm/dl (3.4-5.0) 02/03/25 21:50 Globulin 3.9 gm/dl (2.5-4.0) 02/03/25 21:50 Albumin/Globulin Ratio 0.9 (0.9-2) 02/03/25 21:50 TSH 2.909 uIu/ml (0.300-4.500) 02/03/25 21:50 Code Status & VTE Plan VTE Prophylaxis Plan VTE Prophylaxis will be ordered: Yes
[2025-02-04] MEDS: INSULIN ASPART PER UNIT CHARGE SC SCH (07:39)
[2025-02-04] MEDS: CHECK fentaNYL PATCH PLACEMENT SCH (07:40)
[2025-02-04] MEDS: oxyCODONE HCL IR 5 MG TAB (IMMEDIATE RELEASE) PO PRN (07:40)
[2025-02-04 08:45] LABS: Estimated Average Glucose 166 mg/dl; Hemoglobin A1C 7.4 % (4.5-5.6)
[2025-02-04 09:13] LABS: Appearance Urine Clear (Clear); Bacteria Urine Automated None Seen (None Seen); Bilirubin Urine Negative (Negative); Blood Urine 1+ (Negative); Color Urine Yellow; Epithelial Cell Urine Auto 0-2 /hpf (0-2); Glucose Urine UA Negative (Negative); Ketones Urine Trace (Negative); Leukocyte Esterase Urine 1+ (Negative); Nitrite Urine Negative (Negative); Protein Urine 1+ (Negative); Specific Gravity Urine 1.017 (1.000-1.030); Urobilinogen Urine Negative (Negative); pH Urine 5.5 (4.5-7.5)
--- NOTE | 2025-02-04 09:36 | Palliative Care Consultation ---
Date of Consultation February 04, 2025 History of Present Illness Reason for Consultation: on home hospice. uterine and breast cancer Attending Physician: Charles Esparza MD History of Present Illness Per admitting note: "84year-old female with past medical history significant for type 2 diabetes, diabetic neuropathy, CKD stage III, hyperlipidemia, peripheral vascular disease, hypertension, history of alcoholism in remission, anxiety generalized, history of uterine clear-cell carcinoma s/p surgery and declines any further chemo or radiation and also history of left breast carcino ma declines workup currently under home hospice comes because of suicidal ideation. Patient lives alone. Patient called her home health nurse and told her that she is going to take all her medications so that she can go to sleep and do not wake up. She says she does not want to wait until she is too weak to do anything. Her home health nurse called police. Hospice nurse also removed all the medications from her home. Patient was initially 302. But in the ER it was revoked as patient is on hospice care and has no history of psychiatric illness in the past. The hospice wanted the patient to go to long-term or assisted living and they do not want to take care of her in her home. Patient lives alone. Ambulates without support. Patient says she can cook her own food. She has friends who help her. Hospice nurse comes once a week. Son lives in [place]. Denies any headache. No blurred vision. No runny nose or sore throat. No cough. No fevers. No chest pain or shortness of breath. No nausea. Currently no abdominal pain. Normal bowel and bladder movements. Hemodynamics are okay. Patient says currently she does not have any thoughts to hurt herself. She has pain in her left breast region where she has cancer. Patient says she also gets pain in her lower abdomen. Patient is on fentanyl patch. Patient thinks her pain medications needs to be increased. Patient states she does not want any treatment for her cancer." Allergies Allergy/AdvReac Type Severity Reaction Status Date / Time No Known Allergies Allergy Verified 11/15/19 09:39 Home Medications Medication Instructions Recorded Confirmed Type alprazolam 1 mg tablet 1 mg PO HS PRN Anxiety 02/03/25 02/03/25 History fentanyl 25 mcg/hr transdermal 1 patch transdermal Q72H 02/03/25 02/03/25 History patch Patient History Medical History (Updated 02/04/25 @ 05:20 by Ilya Cisse MD) Arthritis Diabetes mellitus, type 2 Hx pulmonary embolism WAS ON BLOOD THINNERS FOR A LITTLE BIT Hypertension Hyperlipidemia Surgical History Hx of colonoscopy Hx of foot surgery RIGHT AND LEFT BUNIONECTOMY Status post vascular surgery STENT PLACED IN RIGHT SIDE FOR BLOCK IN FEMORAL ARTERY Hx of superior vena cava filter placement DUE TO BLOOD CLOT Social History Smoking Status: Former smoker Second Hand Exposure: No; Do You Dip or Chew Tobacco: No; Tobacco Cessation Education Requested by Patient: No Hx Alcohol Use: No Hx Substance Use: No Preferred Language: Slovenian Communication Ability: Effective Jazz Singer Required: No Beliefs That Will Affect Care: None Current Living Situation: Alone Other Information That Helps Us Care for You: No Feels Safe at Home: Yes Safety Concerns: Feels Safe At This Time Assistive Devices: Walker Results & Data Vital Signs (Past 12 Hours) Vital Signs Temp Pulse Resp BP Pulse Ox O2 Del Method 02/04/25 07:15 37.1 C 84 15 141/78 H 93 Room Air 02/04/25 01:15 36.6 C 98 H 18 114/81 92 Room Air 02/04/25 00:57 36.6 C 98 H 18 114/81 98 Room Air 02/03/25 23:49 Room Air 02/03/25 23:00 77 20 110/69 97 Room Air Laboratory Results 02/04/25 02/04/25 02/03/25 Range/Units 08:50 07:38 21:50 WBC 7.58 (4.8-10.8) K/ul RBC 4.53 (4.20-5.40) M/uL Hgb 10.7 L (12.0-16.0) g/dl Hct 35.1 L (37.0-47.0) % MCV 77.5 L (80.0-100.0) fL MCH 23.6 L (25.0-34.0) pg MCHC 30.5 L (32.0-36.0) g/dL RDW Std Deviation 39.1 (36.4-46.3) fL RDW Coeff of Mikey 13.9 (11.5-14.5) % Plt Count 221 (130-400) K/uL MPV 9.7 (9.4-12.4) fL Immature Gran % (Auto) 0.3 % Neut % (Auto) 61.3 % Lymph % (Auto) 27.3 % [place] % (Auto) 10.0 % Eos % (Auto) 0.7 % Baso % (Auto) 0.4 % Neut # (Auto) 4.65 (1.40-6.50) K/uL Lymph # (Auto) 2.07 (1.20-3.40) K/uL [place] # (Auto) 0.76 H (0.11-0.59) K/uL Eos # (Auto) 0.05 (0.00-0.50) K/uL Baso # (Auto) 0.03 (0.00-0.20) K/uL Immature Gran # (Auto) 0.02 (0.01-0.20) K/uL Sodium 137 (136-145) mmol/L Potassium 3.7 (3.5-5.1) mmol/L Chloride 100 (98-107) mmol/L Carbon Dioxide 28 (21-32) mmol/L Anion Gap 9 (3-11) BUN 19 (6-23) mg/dl Creatinine 1.13 (0.6-1.2) mg/dl Est Cr Clr Drug Dosing 33.3 ml/min eGFR 47.97 BUN/Creatinine Ratio 16.8 (10-20) Glucose 129 H (70-99(Fasting)) mg/dl POC Glucose 135 H (70-99) mg/dl Estimat Average Glucose 166 mg/dl Hemoglobin A1c 7.4 H (4.5-5.6) % Calcium 9.4 (8.6-10.3) mg/dl Total Bilirubin 0.6 (0.2-1.0) mg/dl AST 14 (13-39) U/L ALT 7 (7-52) U/L Alkaline Phosphatase 75 (34-104) U/L Total Protein 7.6 (6.0-8.3) gm/dl Albumin 3.7 (3.4-5.0) gm/dl Globulin 3.9 (2.5-4.0) gm/dl Albumin/Globulin Ratio 0.9 (0.9-2) TSH 2.909 (0.300-4.500) uIu/ml Urine Color Yellow Urine Appearance Clear (Clear) Urine pH 5.5 (4.5-7.5) Ur Specific [place] 1.017 (1.000-1.030) Urine Protein 1+ H (Negative) Urine Glucose (UA) Negative (Negative) Urine Ketones Trace H (Negative) Urine Blood 1+ H (Negative) Urine Nitrite Negative (Negative) Urine Bilirubin Negative (Negative) Urine Urobilinogen Negative (Negative) Ur Leukocyte Esterase 1+ H (Negative) Urine WBC (Auto) 11-20 H (0-5) /hpf Urine RBC (Auto) 6-10 H (0-2) /hpf U Hyaline Cast (Auto) 3-5 H (0-2) /lpf U Epithel Cells (Auto) 0-2 (0-2) /hpf Urine Bacteria (Auto) None Seen (None Seen) PG Care Time/CCT Total # of Minutes Spent Total Time Spent with Patient: Total time spent is greater than 50% in coordination of care (as documented) at patient's floor/unit and/or counseling patient: Coding
[2025-02-04] MEDS: ACETAMINOPHEN 325 MG TAB PO PRN (10:45)
--- NOTE | 2025-02-04 13:05 | Psychiatric Consultation ---
Date of Consultation February 04, 2025 Impression / Recommendations Impression 84year-old female with past medical history significant for type 2 diabetes, diabetic neuropathy, CKD stage III, hyperlipidemia, peripheral vascular disease, hypertension, history of alcoholism in remission, anxiety generalized, history of uterine clear-cell carcinoma s/p surgery and declines any further chemo or radiation and also history of left breast carcinoma declines workup currently under home hospice comes because of suicidal ideation. Patient was brought in by police after pt indicated to [facility] worker of her intention to overdose on medication. Psychiatry consulted for safety risk assessment and evaluation. Patient presents recent active suicidal ideation and intention to overdose due to fears of loss of independence and potential discomfort. She has denied SI since admission. She is future oriented to receive additional pain control and to see her family. She does not appear to be a in major mood or psychotic episode and no overt anxiety symptoms presented. She is independent with iADLs and ADLs. Presents intact reality testing understanding the impact her would have on family. She was counseled about cancer prognosis timelines and variability between every patient. At this time does not appear to be an imminent risk of harm to herself or others. Recommend shorter length dispense of medications (weekly) to limit potential overdose risk and supportive psychotherapy to help manage change in independent function. She would not benefit from inpatient psychiatry admission given inability to modify her situation and that she is at end of life care currently. Overall, I spent a total of 80 minutes with this case including review of chart records, nursing report, review of lab work, direct evaluation of the patient at bedside, counseling the patient, discussion of the patient with the hospitalist provider, discussion with the psychiatric liaison during clinical rounds, and documentation in the electronic health record. (1) Fear of being a burden to others: (2) Fear associated with illness and body function: (3) Hospice care: (4) Metastatic cancer: Plan -No indication for inpatient psychiatry admission -Dispense medications weekly -Optimize pain control -Supportive psychotherapy Psych History Identifying Data 84year-old female with past medical history significant for type 2 diabetes, diabetic neuropathy, CKD stage III, hyperlipidemia, peripheral vascular disease, hypertension, history of alcoholism in remission, anxiety generalized, history of uterine clear-cell carcinoma s/p surgery and declines any further chemo or radiation and also history of left breast carcinoma declines workup currently under home hospice comes because of suicidal ideation. Patient was brought in by police after pt indicated to [facility] worker of her intention to overdose on medication. Psychiatry consulted for safety risk assessment and evaluation. Chief Complaint SI History of Present Illness The patient reports wanting to take her life before she experienced a loss of independence or became a burden on others. She called hospice to determine their schedule so she could plan towards the attempt of taking her pills. Reports cancer was diagnosed in summer and was given an estimated prognosis of 6 months to live. She lives alone and her son is in [place]. Her son offered to move her to [place] but she is unsure. Her tujexert-to-cwj from cancer and has had other friends from cancer and says she understands what end of life care looks like. She reports sleeping well with alprazolam. Says that the fentanyl patch is more effective than the oxycodone pills that she was getting. She rates her pain 5 out of 10 in her left shoulder and lower belly pain bilaterally. Requesting more pain control. Reports that the afternoons are worse and with the breathing. She denies any ruminating anxiety or panic symptoms. She denies any feelings of dread or sadness. denies any past psychiatric history. denies current suicidal ideation. Says her son would be upset if she . Provided reassurance. Allergies Allergy/AdvReac Type Severity Reaction Status Date / Time No Known Allergies Allergy Verified 11/15/19 09:39 Home Medications Medication Instructions Recorded Confirmed Type alprazolam 1 mg tablet 1 mg PO HS PRN Anxiety 02/03/25 02/03/25 History fentanyl 25 mcg/hr transdermal 1 patch transdermal Q72H 02/03/25 02/03/25 History patch Patient History Medical History (Updated 02/04/25 @ 13:01 by Angel Arguello MD) Arthritis Diabetes mellitus, type 2 Hx pulmonary embolism WAS ON BLOOD THINNERS FOR A LITTLE BIT Hypertension Hyperlipidemia Surgical History Hx of colonoscopy Hx of foot surgery RIGHT AND LEFT BUNIONECTOMY Status post vascular surgery STENT PLACED IN RIGHT SIDE FOR BLOCK IN FEMORAL ARTERY Hx of superior vena cava filter placement DUE TO BLOOD CLOT Social History Smoking Status: Former smoker Second Hand Exposure: No; Do You Dip or Chew Tobacco: No; Tobacco Cessation Education Requested by Patient: No Hx Alcohol Use: No Hx Substance Use: No Preferred Language: Estonian Communication Ability: Effective Playback Operator Required: No Beliefs That Will Affect Care: None Current Living Situation: Alone Other Information That Helps Us Care for You: No Feels Safe at Home: Yes Safety Concerns: Feels Safe At This Time Assistive Devices: Walker Physical Exam Mental Examination: Appearance: Well Groomed Eye Contact: Maintains Eye Contact Motor Behavior: Unremarkable Speech: Normal Mood: Euthymic and Calm Affect: Congruent Thought Process: Intact and Linear Thought Content: Intact Hallucinations: None Insight: Fair Judgement: Fair (to limited) Vital Signs (Past 24 Hours): Last Vital Signs Temp 37.1 C 02/04/25 07:15 Pulse 84 02/04/25 07:15 Resp 15 02/04/25 07:15 BP 141/78 H 02/04/25 07:15 Pulse Ox 93 02/04/25 07:15 O2 Del Method Room Air 02/04/25 07:15 Results & Data (PSY) Medications Administered Acetaminophen (Acetaminophen 325 Mg Tab) 650 mg PO Q4H PRN PRN Reason: pain/fever Stop: 03/06/25 00:56 Last Admin: 02/04/25 10:45 Dose: 650 mg Documented By: LETICIA Enoxaparin Sodium (Enoxaparin Inj 40 Mg/0.4 Ml Syr) 40 mg SQ HS GIANA Stop: 03/06/25 00:56 Last Admin: 02/04/25 01:52 Dose: 40 mg Documented By: PNM Insulin Aspart (Insulin Aspart Per Unit Charge) 0 units SC ACHS GIANA Stop: 03/06/25 07:29 Last Admin: 02/04/25 11:44 Dose: 3 units Documented By: LETICIA Co-signed By: SCHUYLER Admin: 02/04/25 07:39 Dose: Not Given Documented By: LETICIA Miscellaneous (Check Fentanyl Patch Placement) 1 each N/A QS GIANA Stop: 03/06/25 07:59 Last Admin: 02/04/25 07:40 Dose: 1 each Documented By: LETICIA Oxycodone HCl (Oxycodone Hcl Ir 5 Mg Tab (Immediate Release)) 5 mg PO Q4H PRN PRN Reason: Severe Pain (Scale 7, 8, 9,10) Stop: 02/18/25 00:56 Last Admin: 02/04/25 07:40 Dose: 5 mg Documented By: LETICIA [place] [address] [facility] Intl Hosp Care Lvl 3 Patient Type New History Detailed Exam Detailed Medical Decision Making High Complexity Diagnoses Fear of being a burden to others F40.298 Fear associated with illness and body function F40.9 Hospice care Z51.5 Metastatic cancer C79.9
--- NOTE | 2025-02-04 15:25 | Hospitalist Progress Note ---
Date of Service February 04, 2025 Assessment & Plan (1) Suicidal ideation: Plan: 84year-old female with past medical history significant for type 2 diabetes, diabetic neuropathy, CKD stage III, hyperlipidemia, peripheral vascular disease, hypertension, history of alcoholism in remission, anxiety generalized, history of uterine clear-cell carcinoma s/p surgery and declines any further chemo or radiation and also history of left breast carcinoma declines workup currently under home hospice comes because of suicidal ideation. Patient lives alone. Patient called her home health nurse and told her that she is going to take all her medications so that she can go to sleep and do not wake up. She says she does not want to wait until she is too weak to do anything. Her home health nurse called police. Hospice nurse also removed all the medications from her home. Patient was initially 302. But in the ER it was revoked as patient is on hospice care and has no history of psychiatric illness in the past. The hospice wanted the patient to go to snf or assisted living and they do not want to take care of her in her home. Patient lives alone. Ambulates without support. Patient says she can cook her own food. She has friends who help her. Hospice nurse comes once a week. Son lives in [place]. Denies any headache. No blurred vision. No runny nose or sore throat. No cough. No fevers. No chest pain or shortness of breath. No nausea. Currently no abdominal pain. Normal bowel and bladder movements. Hemodynamics are okay. Patient says currently she does not have any thoughts to hurt herself. She has pain in her left breast region where she has cancer. Patient says she also gets pain in her lower abdomen. Patient is on fentanyl patch. Patient thinks her pain medications needs to be increased. Patient states she does not want any treatment for her cancer. Suicidal ideation -Called hospice nurse and told that she wanted to take all of her medications so that she can go to sleep and do not wake up. -She does not want to wait until she is too weak to do anything at that time. -Currently denies any suicidal ideation -Patient on home hospice for uterine and breast cancer Plan: -psychiatry cleared patient for hospice at home -discussing with case management making sure hospice services are still engaged at discharged History of uterine cancer -S/p surgery and currently declining any further treatments -Left breast carcinoma and declines any further workup -On home hospice Currently hospice recommends snf or assisted living Plan: -psych cleared patient for hospice at home -continue home pain medications -will consider starting methadone instead of fentanyl patch given limited subq fat and concern for uncontrolled pain History of diabetes -Will follow insulin sliding scale Plan I spent a total of 55 minutes in direct patient care, including [id number] time with the patient and/or family, reviewing medical records, ordering and reviewing diagnostic tests, and coordinating care with other healthcare providers. This time includes: history taking, physical examination, medical decision making, counseling, ECG interpretation, imaging interpretation, lab interpretation, orders, and education, excluding time spent in the performance of separately billed services. Admission and Anticipated Discharge Date Admission Date: February 03, 2025 Subjective Patient seen and examined at bedside. States she does not want to hurt or kill herself anymore. States she was thinking about it at home but that she now realizes that was not a good idea. She states she will not hurt herself at home, she was just afraid of suffering at home. Review of Systems Review of Systems: CONSTITUTIONAL: Patient denies fevers, chills, sweats and weight changes. EYES: Patient denies any visual symptoms. EARS, NOSE, AND THROAT: No difficulties with hearing. No symptoms of rhinitis or sore throat. CARDIOVASCULAR: Patient denies chest pains, palpitations, orthopnea and paroxysmal nocturnal dyspnea. RESPIRATORY: No dyspnea on exertion, no wheezing or cough. GI: No nausea, vomiting, diarrhea, constipation, abdominal pain, hematochezia or melena. : No urinary hesitancy or dribbling. No nocturia or urinary frequency. No abnormal urethral discharge. MUSCULOSKELETAL: shoulder and back pain NEUROLOGIC: No chronic headaches, no seizures. Patient denies numbness, tingling or weakness. PSYCHIATRIC: Patient denies problems with mood disturbance. No problems with anxiety. ENDOCRINE: No excessive urination or excessive thirst. DERMATOLOGIC: Patient denies any rashes or skin changes. Physical Exam Physical Exam: Gen: A&O 3 NAD, cachexia noted HEENT: NCAT, EOMI, not icteric. External ears normal. No rhinorrhea. Moist mucous membranes. Neck: Supple, full range of motion, no observable masses, No meningeal sign. Lungs: No Respiratory distress. CV: RRR, no edema. Abdomen: Soft, nondistended, No rebound tenderness. MSK: No joint swelling, no redness. Skin: No rashes, petechiae, lesions. Normal color per patient. Neuro: Normal Gait, Grossly intact. Psych: Appropriate for situation. Results & Data Results & Data Vital Signs (Past 12 Hours) Vital Signs Temp Pulse Resp BP Pulse Ox O2 Del Method 02/04/25 07:15 37.1 C 84 15 141/78 H 93 Room Air Laboratory Results -personally reviewed, stable labs, no leukocytosis, creatinine 1.13 and in normal range Medications Administered Acetaminophen (Acetaminophen 325 Mg Tab) 650 mg PO Q4H PRN PRN Reason: pain/fever Stop: 03/06/25 00:56 Last Admin: 02/04/25 10:45 Dose: 650 mg Documented By: LETICIA Enoxaparin Sodium (Enoxaparin Inj 40 Mg/0.4 Ml Syr) 40 mg SQ HS [facility] Stop: 03/06/25 00:56 Last Admin: 02/04/25 01:52 Dose: 40 mg Documented By: PNM Insulin Aspart (Insulin Aspart Per Unit Charge) 0 units SC ACHS [facility] Stop: 03/06/25 07:29 Last Admin: 02/04/25 11:44 Dose: 3 units Documented By: LETICIA Co-signed By: SCHUYLER Admin: 02/04/25 07:39 Dose: Not Given Documented By: LETICIA Miscellaneous (Check Fentanyl Patch Placement) 1 each N/A QS [facility] Stop: 03/06/25 07:59 Last Admin: 02/04/25 07:40 Dose: 1 each Documented By: LETICIA Oxycodone HCl (Oxycodone Hcl Ir 5 Mg Tab (Immediate Release)) 5 mg PO Q4H PRN PRN Reason: Severe Pain (Scale 7, 8, 9,10) Stop: 02/18/25 00:56 Last Admin: 02/04/25 07:40 Dose: 5 mg Documented By: LETICIA
[2025-02-04] MEDS: ALPRAZolam 0.5 MG TABLET PO PRN (22:07)
[2025-02-05 08:10] VITALS: BP 138/61; PULSE 81; RESP 16; TEMP 97.5; O2SAT 93
--- NOTE | 2025-02-05 16:15 | Discharge Summary ---
Discharge Summary Date of Service February 05, 2025 Principal Dx & Hospital Course #1 = Principal Diagnosis (1) Suicidal ideation: 84year-old female with past medical history significant for type 2 diabetes, diabetic neuropathy, CKD stage III, hyperlipidemia, peripheral vascular disease, hypertension, history of alcoholism in remission, anxiety generalized, history of uterine clear-cell carcinoma s/p surgery and declines any further chemo or radiation and also history of left breast carcinoma declines workup currently under home hospice comes because of suicidal ideation. Patient lives alone. Patient called her home health nurse and told her that she is going to take all her medications so that she can go to sleep and do not wake up. She says she does not want to wait until she is too weak to do anything. Her home health nurse called police. Hospice nurse also removed all the medications from her home. Patient was initially 302. But in the ER it was revoked as patient is on hospice care and has no history of psychiatric illness in the past. The hospice wanted the patient to go to senior care or assisted living and they do not want to take care of her in her home. Patient lives alone. Ambulates without support. Patient says she can cook her own food. She has friends who help her. Hospice nurse comes once a week. Son lives in [place]. Denies any headache. No blurred vision. No runny nose or sore throat. No cough. No fevers. No chest pain or shortness of breath. No nausea. Currently no abdominal pain. Normal bowel and bladder movements. Hemodynamics are okay. Patient says currently she does not have any thoughts to hurt herself. She has pain in her left breast region where she has cancer. Patient says she also gets pain in her lower abdomen. Patient is on fentanyl patch. Patient thinks her pain medications needs to be increased. Patient states she does not want any treatment for her cancer. Suicidal ideation -Called hospice nurse and told that she wanted to take all of her medications so that she can go to sleep and do not wake up. -She does not want to wait until she is too weak to do anything at that time. -Currently denies any suicidal ideation -Patient on home hospice for uterine and breast cancer Plan: -psychiatry cleared patient for hospice at home -discussing with case management making sure hospice services are still engaged at discharged History of uterine cancer -S/p surgery and currently declining any further treatments -Left breast carcinoma and declines any further workup -On home hospice Currently hospice recommends senior care or assisted living Plan: -psych cleared patient for hospice at home -continue home pain medications -will consider starting methadone instead of fentanyl patch given limited subq fat and concern for uncontrolled pain History of diabetes -Will follow insulin sliding scale Plan I spent a total of 55 minutes in direct patient care, including [id number] time with the patient and/or family, reviewing medical records, ordering and reviewing diagnostic tests, and coordinating care with other healthcare providers. This time includes: history taking, physical examination, medical decision making, counseling, ECG interpretation, imaging interpretation, lab interpretation, orders, and education, excluding time spent in the performance of separately billed services. Notes For Next Care Provider 84year-old female with past medical history significant for type 2 diabetes, diabetic neuropathy, CKD stage III, hyperlipidemia, peripheral vascular disease, hypertension, history of alcoholism in remission, anxiety generalized, history of uterine clear-cell carcinoma s/p surgery and declines any further chemo or r adiation and also history of left breast carcinoma declines workup currently under home hospice comes because of suicidal ideation. On medicine, psychiatry consulted, stated no safety concern, limit meds to 1 week at home, ok for hospice at home. Patient requested sign up with [facility] hospice, set up. On 02/05/2025 patient good for discharge home. Of note, may benefit from rotation of fentanyl patch to methadone given loss of subq fat and for better pain control. Sent home with medications to hold her over at home until meds arrive later in the night. Medication Changes From Visit -see below Admission HPI Per Admitting Provider 84year-old female with past medical history significant for type 2 diabetes, diabetic neuropathy, CKD stage III, hyperlipidemia, peripheral vascular disease, hypertension, history of alcoholism in remission, anxiety generalized, history of uterine clear-cell carcinoma s/p surgery and declines any further chemo or radiation and also history of left breast carcinoma declines workup currently under home hospice comes because of suicidal ideation. Patient lives alone. Patient called her home health nurse and told her that she is going to take all her medications so that she can go to sleep and do not wake up. She says she does not want to wait until she is too weak to do anything. Her home health nurse called police. Hospice nurse also removed all the medications from her home. Patient was initially 302. But in the ER it was revoked as patient is on hospice care and has no history of psychiatric illness in the past. The hospice wanted the patient to go to senior care or assisted living and they do not want to take care of her in her home. Patient lives alone. Ambulates without support. Patient says she can cook her own food. She has friends who help her. Hospice nurse comes once a week. Son lives in [place]. Denies any headache. No blurred vision. No runny nose or sore throat. No cough. No fevers. No chest pain or shortness of breath. No nausea. Currently no abdominal pain. Normal bowel and bladder movements. Hemodynamics are okay. Patient says currently she does not have any thoughts to hurt herself. She has pain in her left breast region where she has cancer. Patient says she also gets pain in her lower abdomen. Patient is on fentanyl patch. Patient thinks her pain medications needs to be increased. Patient states she does not want any treatment for her cancer. Past medical history. As mentioned above Past surgical history. Bilateral bunion correction. Colonoscopy and hemorrhoidectomy. Iliac artery revascularization with stent and angioplasty. Robotic laparoscopic hysterectomy with removal of tubes and ovaries for uterus greater than 250 g. Laparoscopic retroperitoneal lymph node sampling. ND appendectomy. Bilateral cataracts. Repair of detached retina on left side. Social history. Currently living alone. Quit smoking 1978. Smoked 1 pack a day for 29 years. No alcohol use. No drug use. Family history. Father had diabetes. Stroke. Mother had diabetes. Glaucoma. Stroke. Sister has heart disorder. Sister had lung cancer. Sister had lymphoma. Discharge Exam Gen: A&O 3 NAD, cachexia noted HEENT: NCAT, EOMI, not icteric. External ears normal. No rhinorrhea. Moist mucous membranes. Neck: Supple, full range of motion, no observable masses, No meningeal sign. Lungs: No Respiratory distress. CV: RRR, no edema. Abdomen: Soft, nondistended, No rebound tenderness. MSK: No joint swelling, no redness. Skin: No rashes, petechiae, lesions. Normal color per patient. Neuro: Normal Gait, Grossly intact. Psych: Appropriate for situation. Updated Medication List Medication Instructions Recorded Confirmed Type alprazolam 1 mg tablet 1 mg PO HS PRN Anxiety 02/03/25 02/03/25 History fentanyl 25 mcg/hr transdermal 1 patch transdermal Q72H 02/03/25 02/03/25 History patch ondansetron 4 mg disintegrating 4 mg PO Q6 PRN nausea and vomiting 02/05/25 Rx tablet 1 day #7 tabs oxycodone 5 mg tablet 5 mg PO Q4H PRN pain 1 day #6 tabs 02/05/25 Rx polyethylene glycol 3350 17 17 g PO DAILY PRN constipation 02/05/25 Rx gram/dose oral powder (Miralax) #119 grams Hospital Stay Data Consultations 02/03/25 21:53 ED Decision to Admit Stat 02/04/25 08:00 Consult Psychiatry Routine Pending Results Patient Have Any Pending Studies at Discharge: No Discharge Instructions Given to Patient (Per Discharging Provider) 1. Please work with hospice agency. 2. For pain management, can consider methadone instead of fentanyl patches for better pain control. Total Time Total Time Spent Total Time Spent (In Minutes): I spent a total of 35 minutes in direct patient care, including [id number] time with the patient and/or family, reviewing medical records, ordering and reviewing diagnostic tests, and coordinating care with other healthcare providers. This time includes: history taking, physical examination, medical decision making, counseling, ECG interpretation, imaging interpretation, lab interpretation, orders, and education, excluding time spent in the performance of separately billed services.
[2025-02-06] MEDS ORDERED: fentaNYL 25 MCG/HR TDSY TD SCH (09:00)
== END 2025-02-05 14:35 | disposition hospice, home (50) | DRG 880 ==
LOC: ED 18:36 → 3E 22:27 → SUATTDRO 22:27 → 3E 23:49